=== PATIENT | male | born 1975 | race Caucasian/White ===

== ENCOUNTER → 2016-12-02 | Outpatient (CLI) | payer BC ==
[~2016-12-02] MED LIST: LISI-725 PO; METF-384 PO
[2016-12-02 11:59] LABS: BASO % 0.4 %; BASO ABS # 0.02 K/uL (0-0.2); COMPLETE YES; EOS % 2.9 %; HEMATOCRIT 34.8 % (42-52); IG% 0.4 %; LYMPH ABS # 1.65 K/uL (1.2-3.4); MEAN CELL VOLUME 88.1 fL (80-100); MEAN CORPUSCULAR HEMOGLOBIN 30.6 pg (25-34); MEAN CORPUSCULAR HGB CONC 34.8 g/dl (32-36); MEAN PLATELET VOLUME 9.7 fL (7.4-10.4); MONO % 7.4 %; NEUT % 51.9 %; PLATELET COUNT 254 K/uL (130-400); RED BLOOD COUNT 3.95 M/uL (4.7-6.1); WHITE BLOOD COUNT 4.46 K/uL (4.8-10.8)
[2016-12-02 12:19] LABS: AST/SGOT 27 U/L (15-37); BLOOD UREA NITROGEN 15 mg/dl (7-18); BUN/CREATININE RATIO 13.5 (10-20); CARBON DIOXIDE 28 mmol/L (21-32); CHLORIDE 106 mmol/L (98-107); CHOLESTEROL 222 mg/dl (0-200); GLUCOSE 181 mg/dl (70-99); POTASSIUM 4.3 mmol/L (3.5-5.1); SODIUM 141 mmol/L (136-145); TRIGLYCERIDES 135 mg/dl (0-150); VERY LOW DENSITY LIPOPROT CALC 27 mg/dl
[2016-12-02 12:21] LABS: ALT/SGPT 63 U/L (12-78); AST/SGOT 28 U/L (15-37); BLOOD UREA NITROGEN 15 mg/dl (7-18); BUN/CREATININE RATIO 15.2 (10-20); CALCIUM 9.3 mg/dl (8.5-10.1); CARBON DIOXIDE 28 mmol/L (21-32); CHLORIDE 106 mmol/L (98-107); GLUCOSE 187 mg/dl (70-99); MAGNESIUM 1.7 mg/dl (1.8-2.4); POTASSIUM 4.3 mmol/L (3.5-5.1); SODIUM 140 mmol/L (136-145)
[2016-12-02 12:25] LABS: RATIO 46.5 mcg/mg (0-30.0)
[2016-12-02 12:26] LABS: ALB/GLOB RATIO 1.3 (0.9-2); ALKALINE PHOSPHATASE 55 U/L (45-117); FERRITIN 226.5 ng/ml (8.0-388.0); TOTAL IRON BINDING CAPACITY 401 mcg/dl (250-450)
[2016-12-02 12:33] LABS: ALB/GLOB RATIO 1.2 (0.9-2); ALKALINE PHOSPHATASE 54 U/L (45-117); ALT/SGPT 64 U/L (12-78); CHOLESTEROL/HDL RATIO 4.9; HDL CHOLESTEROL 45 mg/dl; LDL CHOLESTEROL CALCULATED 150 mg/dl; THYROID STIMULATING HORMONE 0.989 uIu/ml (0.300-4.500)
[2016-12-03 06:06] LABS: ESTIMATED AVERAGE GLUCOSE 157 mg/dl; HA1C FLAG Normal (Normal)
== END | disposition home or self-care (01) ==
LOC: C.LAB 11:15
PROVIDERS: ATTEND Family Medicine
DX: Z00.00 Encounter for general adult medical examination without abnormal findings (principal); I10 Essential (primary) hypertension; E78.5 Hyperlipidemia, unspecified; E11.9 Type 2 diabetes mellitus without complications; E83.42 Hypomagnesemia; D64.9 Anemia, unspecified

== ENCOUNTER → 2017-07-02 | Outpatient (CLI) | payer BC ==
[2017-07-02 13:56] LABS: HEMATOCRIT 38.9 % (42-52); HEMOGLOBIN 13.2 g/dL (14.0-18.0); MEAN CELL VOLUME 86.1 fL (80-100); MEAN CORPUSCULAR HEMOGLOBIN 29.2 pg (25-34); MEAN CORPUSCULAR HGB CONC 33.9 g/dl (32-36); MEAN PLATELET VOLUME 10.7 fL (7.4-10.4); PLATELET COUNT 289 K/uL (130-400); RED CELL DISTRIBUTION WIDTH CV 13.5 % (11.5-14.5); RED CELL DISTRIBUTION WIDTH SD 42.6 fL (36.4-46.3); WHITE BLOOD COUNT 7.15 K/uL (4.8-10.8)
[2017-07-02 14:21] LABS: HEMOGLOBIN A1C 10.4 % (4.5-5.6)
[2017-07-02 14:56] LABS: ALBUMIN 4.6 gm/dl (3.4-5.0); ALKALINE PHOSPHATASE 97 U/L (45-117); ALT/SGPT 84 U/L (12-78); AST/SGOT 36 U/L (15-37); BLOOD UREA NITROGEN 19 mg/dl (7-18); CALCIUM 10.2 mg/dl (8.5-10.1); CARBON DIOXIDE 24 mmol/L (21-32); CHOLESTEROL 199 mg/dl (0-200); CREATININE 1.29 mg/dl (0.60-1.40); GLUCOSE 361 mg/dl (70-99); POTASSIUM 4.2 mmol/L (3.5-5.1); SODIUM 134 mmol/L (136-145); TOTAL PROTEIN 8.3 gm/dl (6.4-8.2)
== END | disposition home or self-care (01) ==
LOC: C.LABPBG 07:40
PROVIDERS: ATTEND Physician Assistant
DX: Z00.00 Encounter for general adult medical examination without abnormal findings (principal); D64.9 Anemia, unspecified; E11.65 Type 2 diabetes mellitus with hyperglycemia; E78.1 Pure hyperglyceridemia

== ENCOUNTER 2024-01-10 10:04 | Inpatient (IN) ==
[2024-01-10 10:51] LABS: Basophils # (auto) 0.04 K/uL (0.00-0.20); Basophils % (auto) 0.2 %; Hematocrit (blood only) 32.2 % (42.0-52.0); Hemoglobin 10.7 g/dl (14.0-18.0); Immature Granulocytes # (auto) 0.18 K/uL (0.01-0.20); Immature Granulocytes % (auto) 1.1 %; Lymphocytes # (auto) 2.28 K/uL (1.20-3.40); Lymphocytes % (auto) 13.6 %; Mean Corpuscular Hemoglobin 26.3 pg (25.0-34.0); Mean Corpuscular Hgb Conc 33.2 g/dL (32.0-36.0); Mean Corpuscular Volume 79.1 fL (80.0-100.0); Mean Platelet Volume 10.2 fL (9.4-12.4); Monocytes # (auto) 1.03 K/uL (0.11-0.59); Monocytes % (auto) 6.1 %; Neutrophils # (auto) 13.23 K/uL (1.40-6.50); Platelet Count 392 K/uL (130-400); RDW Coefficient of Variation 14.4 % (11.5-14.5); RDW Standard Deviation 40.6 fL (36.4-46.3); Red Blood Count 4.07 M/uL (4.70-6.10); White Blood Count 16.76 K/ul (4.8-10.8)
[2024-01-10] MEDS: ONDANSETRON INJ 2 MG/ML 2 ML VIAL IV STA (10:53)
[2024-01-10] MEDS: SODIUM CHLORIDE 0.9% 1,000 ML IV ONE ×2 (10:57→11:58)
[2024-01-10] MEDS: FAMOTIDINE 20MG IV PUSH 20 MG/5 ML SYR IV STA (10:58)
[2024-01-10] MEDS: PROMETHAZINE 12.5 MG/50.5 ML BAG IV STA (11:01)
[2024-01-10 11:15] LABS: Albumin Globulin Ratio 1.5 (0.9-2); Albumin Level 4.4 gm/dl (3.4-5.0); BUN Creatinine Ratio 4.6 (10-20); Bilirubin,Total 0.6 mg/dl (0.2-1.0); Calcium 5.5 mg/dl (8.6-10.3); Creatinine Clr Calc Pharmacy 8.3 ml/min; Globulin 2.9 gm/dl (2.5-4.0); Potassium 2.5 mmol/L (3.5-5.1); Total Protein 7.3 gm/dl (6.0-8.3)
[2024-01-10 11:21] LABS: Troponin I High Sensitivity 65.3 pg/ml (0-20)
--- NOTE | 2024-01-10 11:35 | XRay Report ---
SINGLE VIEW CHEST CLINICAL HISTORY: Vomiting. FINDINGS: An AP, portable, upright chest radiograph is compared to study dated 04/20/2014. The cardiome diastinal silhouette is unremarkable. The lungs and pleural spaces are clear. No pneumothorax is seen . The bony thorax is grossly intact. IMPRESSION: No active disease in the chest. ACT 112: Negative or not required by law. Electronically signed by: Aaron Gonzales M.D. 01/10/2024 11:34 AM
--- NOTE | 2024-01-10 11:37 | XRay Report ---
KUB CLINICAL HISTORY: Vomiting. FINDINGS: 2 AP, portable, supine abdominal radiographs are obtained. No prior studies are available f or comparison at the time of dictation. There are distended and gas-filled loops of small bowel which measure up to 3.3 cm in diameter. There is a paucity of gas in the colon. No evidence of intraperito emma free air is seen on this supine image. There are no abnormal abdominal calcifications. Small phl eboliths are noted in the pelvis. The bony structures appear intact. IMPRESSION: There are distended and gas-filled loops of small bowel. This is indeterminant and could be seen with a nonspecific enteritis. A developing bowel obstruction is not excluded. Correlate clini uday. Electronically signed by: Aaron Gonzales M.D. 01/10/2024 11:35 AM
[2024-01-10] MEDS: CALCIUM GLUCONATE 1,000 MG/60 ML BAG IV STA (11:53)
[2024-01-10] MEDS: MAGNESIUM SULFATE / D5W 1 GM/100 ML BAG IV SCH ×2 (11:58→15:50)
[2024-01-10] MEDS: POTASSIUM CHLORIDE / WTR 10 MEQ/100 ML PLCT IV SCH (11:58)
--- NOTE | 2024-01-10 11:58 | CT Scan Report ---
CT SCAN OF THE ABDOMEN AND PELVIS WITHOUT IV CONTRAST CLINICAL HISTORY: Acute renal insufficiency. Vomiting. COMPARISON STUDY: Abdominal x-ray dated 01/10/2024. TECHNIQUE: CT scan of the abdomen and pelvis is performed from the lung bases to the proximal femora. Images are reviewed in the axial, sagittal, and coronal planes. IV contrast was not administered for this examination due to poor renal function. Note that the examination is suboptimal without oral an d IV contrast. A dose lowering technique was utilized adhering to the principles of ALARA. CT DOSE: 671.79 mGy.cm FINDINGS: Lung bases: The heart is normal in size and without pericardial effusion. The lung bases are clear. T he distal esophagus is mildly distended and filled with fluid. Liver: The unenhanced liver is normal in size, contour, and attenuation. There is no intrahepatic justina iary ductal dilatation. Gallbladder: Unremarkable. Spleen: Normal in size and attenuation. Pancreas: Unremarkable. Adrenal glands: Unremarkable. Kidneys: The unenhanced kidneys are normal in size and without hydronephrosis. No renal calculi are i dentified and no ureteral stone is seen. There is no evidence of contour deforming renal mass lesion. There is nonspecific bilateral perinephric stranding. Abdominal vasculature: The abdominal aorta is normal in course and caliber. Bowel: The stomach is significantly distended and fluid-filled. The duodenum is normal in caliber, th ere is no evidence of high-grade bowel obstruction. The colon is relatively decompressed and appears diffusely thick walled. There is no significant surrounding inflammation. The appendix is not identi fied and reported surgically absent. Peritoneum: There is no intraperitoneal free air or abdominal ascites. There is a fat-containing umbi lical hernia. Lymphadenopathy: None. Pelvic viscera: The bladder, prostate, and seminal vesicles are normal as imaged. Skeletal structures: No lytic or blastic lesions are seen. IMPRESSION: 1. The stomach is significantly distended and fluid-filled, as is the distal esophagus. The duodenum is normal in caliber as are the small bowel loops. Correlate clinically for evidence of gastric outle t obstruction. 2. The colon is relatively decompressed and appears circumferentially thick walled. Some this may be related to underdistention. Correlate clinically for evidence of a mild nonspecific colitis. 3. There is nonspecific perinephric stranding. Correlate with clinical findings and urinalysis. 4. Additional findings as above. ACT 112: Negative or not required by law. Electronically signed by: Aaron Gonzales M.D. 01/10/2024 11:56 AM
[2024-01-10] MEDS: LORazepam 2 MG/1 ML VIAL IV STA (12:25)
--- NOTE | 2024-01-10 12:34 | History & Physical Report ---
Date of Service January 10, 2024 Assessment & Plan (1) RODRIGO (acute kidney injury): (2) DM2 (diabetes mellitus, type 2): (3) Gastric outlet obstruction: (4) Electrolyte and fluid disorder: (5) Elevated troponin: (6) Elevated lactic acid level: Plan This is a 48-year-old male presenting with nausea and vomiting likely due to gastric outlet obstruction, with severe dehydration and RODRIGO. 1) Gastric outlet obstruction and severely elevated lactic acid. No obvious sign of ischemic bowel on CT per report. - Currently monitoring lactic acid, and will decide whether patient requires ICU admission or PCU admission; if overall condition does not improve, will obtain target worker consult - We will keep patient n.p.o., and insert NG tube - Have discussed the case with surgery, and they will evaluate the patient; at this time only recommendations were keep patient n.p.o. and insert NG tube - Unfortunately due to patient's increased QTc, if patient does continue to have nausea and vomiting we will be limited in what we can use to treat 2) Severe RODRIGO likely due to volume depletion. Imaging does not appear to indicate any urinary tract obstruction. - Patient did receive repletion of electrolytes in the ER, as well as hydration. We will continue hydration with LR at 125 cc an hour - For now we will monitor every 2 hours BMP, and mag. Will also obtain Phos level with next scheduled lab - Will check urine sodium and creatinine to calculate FENa - Discussed case with nephrology; Dr. Feliciano will see the patient later after clinic - Will continue to dose medications renally and avoid all nephrotoxic medications 3) Elevated troponin, and somewhat abnormal EKG. Elevated troponin is likely due to renal failure, but we will continue to monitor. - Admit patient to telemetry - Monitor serial troponins - EKG with any occurrence of chest pain 4) Diabetes type 2. Patient will be n.p.o. for the near future. Will place on low-dose sliding scale insulin given elevated blood sugar still. - Sliding scale insulin as noted - Continue IV hydration -- 5) Hypertension, hyperlipidemia -- we will have to hold all of his medications for right now 6) History of opioid use/abuse -- for right now we will have to hold his buprenorphine; will have to monitor for signs of withdrawal 7) DVT prophylaxis -- SCDs only for now 8) CODE STATUS -- full code History of Present Illness Chief Complaint: Nausea and vomiting Primary Care Provider: Shavonne Vallecillo, This is a 48-year-old male with medical history significant for diabetes type 2 (on Ozempic 0.5 mg weekly, and metformin), hyperlipidemia, GERD, and opioid dependence (on buprenorphine) who comes in with several days of nausea and vomit ing. Patient states that he was in his usual state of health until about 4-5 days ago when he started developing the nausea and vomiting. He has not been able to keep much food or fluid down. He has been having some ice chips and sips of water at home for the last several days and that is about it. Denies any diarrhea. states urine output has decreased, but he that he is still producing urine. Denies any severe abdominal pain. Denies any dysuria as far as he can tell. Denies any fevers, chills. Denies any chest pain, shortness of breath. Patient states that he has been on Ozempic on and off for 4 to 5 years. In the past he has had occasional episodes of nausea and vomiting with it, but it has not been this severe. He resumed Ozempic 6 months ago at a dose of 0.5 mg q. weekly, and thus far until this week has not had any issues with it. Denies any other changes in medications. Allergies Allergy/AdvReac Type Severity Reaction Status Date / Time naloxone AdvReac Mild nauseaous Verified 07/26/23 07:36 and drowsy Home Medications Medication Instructions Recorded Confirmed Type blood sugar diagnostic (OneTouch #100 ea 12/17/19 07/26/23 Rx Ultra Blue Test Strip) blood-glucose meter (OneTouch #1 ea 12/17/19 07/26/23 Rx Ultra2 Meter) buprenorphine HCl 8 mg sublingual 8 mg sublingual UD 06/06/20 01/10/24 History tablet pantoprazole 40 mg tablet,delayed 40 mg PO QAM #90 tabs 08/26/23 01/10/24 Rx release rosuvastatin 40 mg tablet 40 mg PO QAM #90 tabs 08/26/23 01/10/24 Rx metformin 500 mg tablet,extended 1,000 mg (2 x 500 mg) PO BID #360 10/16/23 01/10/24 Rx release 24 hr tabs semaglutide 0.25 mg or 0.5 mg (2 0.5 mg (0.736 mL) subcut .weekly 01/02/24 01/10/24 Rx mg/3 mL) subcutaneous pen injector #3 mL (Ozempic) Past Med/Surg History Problem List (Updated 01/10/24 @ 13:10 by Karla Bruno PA-C) Nausea & vomiting Elevated lactic acid level Elevated troponin Electrolyte and fluid disorder Gastric outlet obstruction DM2 (diabetes mellitus, type 2) RODRIGO (acute kidney injury) History of colon polyps Erectile dysfunction Hypomagnesemia Opiate dependence hx Depression Anxiety Peripheral neuropathy Microalbuminuria Hypertriglyceridemia Gastroesophageal reflux disease Dyslipidemia Dysesthesia Diabetic nephropathy Diabetes mellitus type 2, uncontrolled NIDDM Anemia followed with [facility], advised to take magnesium po BID. HTN (hypertension) Medical History Restless leg syndrome Migraine occasional History of alcohol abuse Surgical History History of colonoscopy History of esophagogastroduodenoscopy (EGD) H/O wisdom tooth extraction S/P hardware removal right hand History of open reduction and internal fixation (ORIF) procedure right hand Hx of appendectomy Family History Father Brain tumor Mental disorder Grandfather (Paternal) Coronary heart disease Type 2 diabetes mellitus Mother Mental disorder Grandfather (Maternal) Type 2 diabetes mellitus Denies family history of Ovarian cancer Prostate cancer Myocardial infarction Breast cancer Colorectal cancer Social History Smoking Status: Former smoker Tobacco Type: Smokeless Tobacco (Dip or Chew) Second Hand Exposure: Yes (as a child); Do You Dip or Chew Tobacco: Yes; Hx Alcohol Use: No ((hx heavy alcohol use) quit in 2014) Hx Substance Use: No (hx of misuse of RX (per pcp notes)) Preferred Language: Khmer Communication Ability: Effective Visual Impairment: No Limitations Hearing Ability: Normal Slasher Machine Operator Required: No Beliefs That Will Affect Care: None marital status: Current Living Situation: Family current occupational status: employed 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 caffeine: Yes (Soda 1 can per day. ) during the past year weight has: remained stable Dental Care, Regularly: No Physical Activity Frequency: 5-6 Times per Week Seatbelt Use: always Sunscreen Use: Yes Assistive Devices: None Review of Systems Review of Systems: All systems reviewed & are unremarkable except as noted in HPI & below Constitutional: + anorexia; no fever and no chills Gastrointestinal: + nausea and + vomiting; no abdominal pa in, no hematemesis, no change in stools and no diarrhea/loose stools Genitourinary: + decreased urination; no dysuria or no difficulty urinating Physical Exam Constitutional: + ill appearing; + not appropriately hyd rated Eyes: PERRL, conjunctivae normal, anicteric sclerae Respiratory: normal respiratory effort, lungs clear to auscultation Cardiovascular: RRR, no murmur, no edema Gastrointestinal (Abdomen): Inspection/Auscultation: + abdomen distended; + abnormal bowel sounds and no high-pitched sounds Percussion/Palpation: abdomen soft; abdomen nontender and no guarding Musculoskeletal: no cyanosis or clubbing, extremities motor strength 5/5 Neurologic: PERRL, EOMI, accommodation nl, no face palsy, no dysarthria Psychiatric: A+Ox3, euthymic affect Genitourinary: no testicular masses, no penis abnormality In process of having Jenkins cath placed Results & Data Results & Data Vital Signs (Past 12 Hours) Vital Signs Temp Pulse Pulse Resp BP BP Pulse Ox 01/10/24 12:10 93 H 01/10/24 12:07 91 H 14 118/64 100 01/10/24 12:07 100 01/10/24 10:10 36.0 C L 89 20 111/70 99 O2 Del Method 01/10/24 12:10 01/10/24 12:07 Room Air 01/10/24 12:07 Room Air 01/10/24 10:[address] abd/pelvis without contrast IMPRESSION: 1. The stomach is significantly distended and fluid-filled, as is the distal esophagus. The duodenum is normal in caliber as are the small bowel loops. Correlate clinically for evidence of gastric outlet obstruction. 2. The colon is relatively decompressed and appears circumferentially thick walled. Some this may be related to underdistention. Correlate clinically for evidence of a mild nonspecific colitis. 3. There is nonspecific perinephric stranding. Correlate with clinical findings and urinalysis. 4. Additional findings as above. ECG Additional Comments: Normal sinus rhythm Left axis deviation Nonspecific T wave abnormality QTc prolonged at 547 Code Status & VTE Plan Code Status Full code per patient. PG Care Time/CCT Total # of Minutes Spent Total Time Spent with Patient: Total time spent is greater than 50% in coordination of care (as documented) at patient's floor/unit and/or counseling patient: Coding Level of Care Code 93454 INT INP/OBS CARE 3/75MIN Diagnoses RODRIGO (acute kidney injury) N17.9 DM2 (diabetes mellitus, type 2) E11.9 Gastric outlet obstruction K31.1 Electrolyte and fluid disorder E87.8 Elevated troponin R79.89 Elevated lactic acid level R79.89 Time Spent (min) 75
[2024-01-10 12:38] LABS: BUN Creatinine Ratio 4.9 (10-20); Calcium 5.4 mg/dl (8.6-10.3); Creatinine Clr Calc Pharmacy 8.6 ml/min; Potassium 2.7 mmol/L (3.5-5.1); Troponin I High Sensitivity 61.8 pg/ml (0-20)
[2024-01-10] MEDS: LIDOCAINE 2% JELLY 5 ML TUBE EXT ONE (13:03)
--- NOTE | 2024-01-10 13:06 | Surgery Consultation ---
Date of Consultation January 10, 2024 Assessment & Plan (1) Nausea & vomiting: This is a 48yM with a PMH of DM2, anxiety/depression, HLD, HTN, anemia, h/o opioid and alcohol abuse, who presents to the [facility] ED on 01/10/24 with complaints of nausea/vomiting over the last 5 days. He also reported feeling achy and numb and was worried about his sugars so he came in for evaluation. He has not been able to keep much down orally since this started. In the ER a CT a/p was obtained that revealed the stomach is significantly distended and fluid- filled, as is the distal esophagus. The duodenum is normal in caliber as are the small bowel loops. Correlate clinically for evidence of gastric outlet obstruction. The colon is relatively decompressed and appears circumferentially thick walled. Correlate clinically for evidence of a mild nonspecific colitis. The patient denies any abdominal pain, no blood in emesis. He states he normally runs constipated and goes about 1x/week. He has been passing flatus. He has been worked up for anemia in the past with both EGD/colonoscopy, last EGD 2018 showed some gastritis (biopsied) and last c-scope 2020 (poor prep, but no significant pathology seen). He has also been evaluated by heme/onc who believes his anemia likely chronic disease vs renal insufficiency in nature. His great gpa had crohn's but no other close family history of IBD. He tells me no close family history of GI/pancreatic malignancy. No reports of peptic ulcer disease or chronic NSAID use. Patient reports being sober from etoh over 13 years, but did recently have some last wknd. Patient reports taking all of his home medications as prescribed, He has started Ozempic about 6 months ago and notes some weight loss associated with the start of this. Past surgical history includes an appendectomy. Today's blood work is significant for a WBC 16, Hbg 10.7, Lactate 11.9, K 2.7, Cr 2.5, glucose 260, calcium 5.4. The patient's vital signs are stable. On exam patient is resting and in no distress, communicating clearly with me. His abdomen is soft, non tender and non distended. Given last several days patient dealing with ongoing nausea and multiple bouts of emesis, given CT scan findings of a severely distended stomach we would recommend inserting an NGT to LIWS for gastric decompression. Keep patient NPO with IVF. His severe electrolyte derangements will need to be corrected. Recommend IV PPI. If ongoing concerns we can also consider a GI consult for evaluation of if an inpt EGD indicated. For now no plans for acute surgical intervention. Will follow closely. History of Present Illness History of Present Illness This is a 48yM with a PMH of DM2, anxiety/depression, HLD, HTN, anemia, h/o opioid and alcohol abuse, who presents to the [facility] ED on 01/10/24 with complaints of nausea/vomiting over the last 5 days. He also reported feeling achy and numb and was worried about his sugars so he came in for evaluation. He has not been able to keep much down orally since this started. He states he felt like he was turning a corner yesterday into today, this AM after drinking some fluids/Gatorade about 30 minutes later he started throwing up again. The patient denies anything like this happening to him before. He denies eating any poorly prepped food to his knowledge or sick contacts. Because of his symptoms he presented to the ER for further evaluation. A CT a/p was obtained that revealed the stomach is significantly distended and fluid-filled, as is the distal esophagus. The duodenum is normal in caliber as are the small bowel loops. Correlate clinically for evidence of gastric outlet obstruction. The colon is relatively decompressed and appears circumferentially thick walled. Correlate clinically for evidence of a mild nonspecific colitis. The patient denies any abdominal pain, no blood in emesis. He states he normally runs constipated and goes about 1x/week. His last true BM was saturday, but he was able to pass some stool yesterday. He reports + burping in addition to also passing flatus. No issues eating food in the past. He has been worked up for anemia in the past with both EGD/colonoscopy, last EGD 2018 showed some gastritis (biopsied) and last c-scope 2020 (poor prep, but no significant pathology seen). He has also been evaluated by heme/onc who believes his anemia likely chronic disease vs renal insufficiency in nature. His great gpa had crohn's but no other close family history of IBD. He tells me no close family history of GI/pancreatic malignancy. No reports of peptic ulcer disease or chronic NSAID use. Patient reports being sober from etoh over 13 years, but did recently have some last wknd. Patient reports taking all of his home medications as prescribed, He has started Ozempic about 6 months ago and notes some weight loss associated with the start of this. Past surgical history includes an appendectomy Allergies Allergy/AdvReac Type Severity Reaction Status Date / Time naloxone AdvReac Mild nauseaous Verified 07/26/23 07:36 and drowsy Home Medications Medication Instructions Recorded Confirmed Type blood sugar diagnostic (OneTouch #100 ea 12/17/19 07/26/23 Rx Ultra Blue Test Strip) blood-glucose meter (OneTouch #1 ea 12/17/19 07/26/23 Rx Ultra2 Meter) buprenorphine HCl 8 mg sublingual 8 mg sublingual UD 06/06/20 01/10/24 History tablet pantoprazole 40 mg tablet,delayed 40 mg PO QAM #90 tabs 08/26/23 01/10/24 Rx release rosuvastatin 40 mg tablet 40 mg PO QAM #90 tabs 08/26/23 01/10/24 Rx metformin 500 mg tablet,extended 1,000 mg (2 x 500 mg) PO BID #360 10/16/23 01/10/24 Rx release 24 hr tabs semaglutide 0.25 mg or 0.5 mg (2 0.5 mg (0.736 mL) subcut .weekly 01/02/24 01/10/24 Rx mg/3 mL) subcutaneous pen injector #3 mL (Ozempic) Patient History Medical History Restless leg syndrome Migraine occasional History of alcohol abuse Surgical History History of colonoscopy History of esophagogastroduodenoscopy (EGD) H/O wisdom tooth extraction S/P hardware removal right hand History of open reduction and internal fixation (ORIF) procedure right hand Hx of appendectomy Family History Father Brain tumor Mental disorder Grandfather (Paternal) Coronary heart disease Type 2 diabetes mellitus Mother Mental disorder Grandfather (Maternal) Type 2 diabetes mellitus Denies family history of Ovarian cancer Prostate cancer Myocardial infarction Breast cancer Colorectal cancer Social History Smoking Status: Former smoker Tobacco Type: Cigarettes and Smokeless Tobacco (Dip or Chew) Second Hand Exposure: Yes; Do You Dip or Chew Tobacco: Yes; Tobacco Cessation Education Requested by Patient: No Hx Alcohol Use: No Hx Substance Use: No Preferred Language: [place] Communication Ability: Effective Visual Impairment: No Limitations Hearing Ability: Normal [employer] Supervisor Required: No Beliefs That Will Affect Care: None marital status: Current Living Situation: Spouse current occupational status: employed 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 caffeine: Yes (Soda 1 can per day. ) during the past year weight has: remained stable Dental Care, Regularly: No Physical Activity Frequency: 5-6 Times per Week Seatbelt Use: always Sunscreen Use: Yes Assistive Devices: None Review of Systems Constitutional: + chills and + body aches; no fever Respiratory: + dyspnea (some SOB noted after vomiting ); no cough Cardiovascular: no chest pain Gastrointestinal: + belching, + nausea, + vomiting and + c onstipation (jono ent's baseline is 1x/week); no abdominal pain, no bloating, no hematemesis and no blood in stools Physical Exam Physical Exam: awake, appears in no distress Respiratory: normal respiratory effort Gastrointestinal (Abdomen): Inspection/Auscultation: abdomen not distended Percussion/Palpation: abdomen soft; abdomen nontender Results & Data Vital Signs (Past 12 Hours) Vital Signs Temp Pulse Pulse Resp BP BP Pulse Ox 01/10/24 12:10 93 H 01/10/24 12:07 91 H 14 118/64 100 01/10/24 12:07 100 01/10/24 10:10 96.8 F L 89 20 111/70 99 O2 Del Method 01/10/24 12:10 01/10/24 12:07 Room Air 01/10/24 12:07 Room Air 01/10/24 10:[address] SCAN OF THE ABDOMEN AND PELVIS WITHOUT IV CONTRAST CLINICAL HISTORY: Acute renal insufficiency. Vomiting. COMPARISON STUDY: Abdominal x-ray dated 01/10/2024. TECHNIQUE: CT scan of the abdomen and pelvis is performed from the lung bases to the proximal femora. Images are reviewed in the axial, sagittal, and coronal planes. IV contrast was not administered for this examination due to poor renal function. Note that the examination is suboptimal without oral and IV contrast. A dose lowering technique was utilized adhering to the principles of ALARA. CT DOSE: 671.79 mGy.cm FINDINGS: Lung bases: The heart is normal in size and without pericardial effusion. The lung bases are clear. The distal esophagus is mildly distended and filled with fluid. Liver: The unenhanced liver is normal in size, contour, and attenuation. There is no intrahepatic biliary ductal dilatation. Gallbladder: Unremarkable. Spleen: Normal in size and attenuation. Pancreas: Unremarkable. Adrenal glands: Unremarkable. Kidneys: The unenhanced kidneys are normal in size and without hydronephrosis. No renal calculi are identified and no ureteral stone is seen. There is no evidence of contour deforming renal mass lesion. There is nonspecific bilateral perinephric stranding. Abdominal vasculature: The abdominal aorta is normal in course and caliber. Bowel: The stomach is significantly distended and fluid-filled. The duodenum is normal in caliber, there is no evidence of high-grade bowel obstruction. The colon is relatively decompressed and appears diffusely thick walled. There is no significant surrounding inflammation. The appendix is not identified and reported surgically absent. Peritoneum: There is no intraperitoneal free air or abdominal ascites. There is a fat-containing umbilical hernia. Lymphadenopathy: None. Pelvic viscera: The bladder, prostate, and seminal vesicles are normal as imaged. Skeletal structures: No lytic or blastic lesions are seen. IMPRESSION: 1. The stomach is significantly distended and fluid-filled, as is the distal esophagus. The duodenum is normal in caliber as are the small bowel loops. Ange elate clinically for evidence of gastric outlet obstruction. 2. The colon is relatively decompressed and appears circumferentially thick walled. Some this may be related to underdistention. Correlate clinically for evidence of a mild nonspecific colitis. 3. There is nonspecific perinephric stranding. Correlate with clinical findings and urinalysis. 4. Additional findings as above. ACT 112: Negative or not required by law. Electronically signed by: Aaron Gonzales M.D. 01/10/2024 11:56 AM PG Care Time/CCT Total # of Minutes Spent Total Time Spent with Patient: Total time spent is greater than 50% in coordination of care (as documented) at patient's floor/unit and/or counseling patient: Coding Level of Care Code 54366 OFFICE CONSULT LVL Diagnoses Nausea & vomiting R11.2
[2024-01-10] MEDS ORDERED: CARBOHYDRATES FOR HYPOGLYCEMIA PO PRN (13:30)
[2024-01-10] MEDS ORDERED: GLUCAGON FOR INJ 1 MG VIAL SQ PRN (13:30)
[2024-01-10] MEDS ORDERED: GLUCOSE 10 TAB/TUBE PO PRN (13:30)
[2024-01-10] MEDS ORDERED: DEXTROSE 50% 50 ML SYRINGE IV PRN (13:30)
[2024-01-10] MEDS ORDERED: PHARMACY GLYCEMIC MGMT CONSULT PRN (13:30)
[2024-01-10] MEDS ORDERED: GLUCOSE 40% GEL 15 GM TUBE PO PRN (13:30)
--- NOTE | 2024-01-10 13:34 | XRay Report ---
XR KUB/Abdomen 1 view CLINICAL HISTORY: NG placement TECHNIQUE: 1 view of the abdomen was obtained. Comparison: None available at the time of this dictation. FINDINGS: Enteric tube side-port is above the diaphragm. The osseous structures are grossly unremarkable. Small stool burden is seen. IMPRESSION: Enteric tube side-port is above the diaphragm. It can be advanced approximately 7 cm for improved pos itioning. ACT 112: Negative or not required by law. Electronically signed by: Rush Mccormick M.D. 01/10/2024 1:33 PM
--- NOTE | 2024-01-10 13:38 | Billing Data ---
Date of Service January 10, 2024 Coding Level of Care Code 99666 CRITICAL CARE 1ST 30-74M Time Spent (min) 30 Comment 30 minutes critical care in addition to all other billable time.
[2024-01-10 13:40] LABS: Appearance Urine Clear (Clear); Bacteria Urine Automated None Seen (None Seen); Bilirubin Urine Negative (Negative); Blood Urine 3+ (Negative); Color Urine Yellow; Epithelial Cell Urine Auto 0-2 /hpf (0-2); Glucose Urine UA Negative (Negative); Ketones Urine 2+ (Negative); Leukocyte Esterase Urine Negative (Negative); Nitrite Urine Negative (Negative); Protein Urine 2+ (Negative); Specific Gravity Urine 1.012 (1.000-1.030); Urobilinogen Urine Negative (Negative); WBC Urine Automated 0-5 /hpf (0-5); pH Urine 5.5 (4.5-7.5)
--- NOTE | 2024-01-10 13:47 | XRay Report ---
SINGLE VIEW CHEST CLINICAL HISTORY: Enteric tube placement. FINDINGS: An AP, portable, upright chest radiograph is compared to study performed earlier the same d ay 01/10/2024. An enteric tube has been placed. The tip projects just below the diaphragm, with the s ideholes located above the diaphragm. The cardiomediastinal silhouette is unremarkable. The lungs and pleural spaces are clear. No pneumothorax is seen. The bony thorax is grossly intact. IMPRESSION: 1. An enteric tube has been placed as above. This should be advanced. 2. The lungs are clear. ACT 112: Negative or not required by law. Electronically signed by: Aaron Gonzales M.D. 01/10/2024 1:46 PM
[2024-01-10 14:17] LABS: Creatinine Urine Random 55.2 mg/dl
[2024-01-10 14:46] LABS: Base Excess VBG -16.2 mEq/L; HCO3 VBG 10 mmol/L; Oxygen Saturation VBG < 60.0 %; PCO2 VBG 26 mmHg (38-50); PO2 VBG 41 mmHg
[2024-01-10 14:49] LABS: Basophils # (auto) 0.03 K/uL (0.00-0.20); Basophils % (auto) 0.2 %; Hematocrit (blood only) 28.3 % (42.0-52.0); Hemoglobin 9.4 g/dl (14.0-18.0); Immature Granulocytes # (auto) 0.16 K/uL (0.01-0.20); Lymphocytes # (auto) 1.77 K/uL (1.20-3.40); Lymphocytes % (auto) 10.8 %; Mean Corpuscular Hemoglobin 26.2 pg (25.0-34.0); Mean Corpuscular Hgb Conc 33.2 g/dL (32.0-36.0); Mean Corpuscular Volume 78.8 fL (80.0-100.0); Mean Platelet Volume 10.3 fL (9.4-12.4); Monocytes # (auto) 1.12 K/uL (0.11-0.59); Monocytes % (auto) 6.8 %; Neutrophils # (auto) 13.38 K/uL (1.40-6.50); Neutrophils % (auto) 81.2 %; Platelet Count 333 K/uL (130-400); RDW Coefficient of Variation 14.5 % (11.5-14.5); RDW Standard Deviation 40.6 fL (36.4-46.3); Red Blood Count 3.59 M/uL (4.70-6.10); White Blood Count 16.46 K/ul (4.8-10.8)
--- NOTE | 2024-01-10 14:55 | Pharmacy Report ---
Pharmacy Glycemic Short Note 2 - Date of Service January 10, 2024 - Glycemic Short BSG Results (Last 24 hours): 01/10/24 01/10/24 01/10/24 10:19 10:35 11:54 Glucose 308 H* 260 H POC Glucose 297 H 01/10/24 14:18 Glucose POC Glucose 300 H OUTPATIENT ANTIDIABETIC REGIMEN: * semaglutide 0.5 mg SQ weekly, metformin 1gm bid ASSESSMENT: * 48 year old admitted with RODRIGO, dehydration, electrolyte abnormalities. PMHx significant for T2DM - pharmacy consulted for glycemic management. Patient with several days of nausea/vomiting prior to admission. BSG 300 mg/dL at time of consult - will enter in novolog for now and see how BSGs trend. Will plan to be more conservative with insulin as severe RODRIGO noted. Could consider basal insulin if BSGs trending upward. Patient NPO currently. PLAN FOR INPATIENT GLYCEMIC CONTROL: * Hold outpatient oral diabetes medications * Basal insulin * Lantus - hold * Bolus insulin * NovoLog per scale ACHS or Q6hrs while NPO * Goal Range: Low 110 mg/dL - High 140 mg/dL * Correction Factor: 50 mg/dL/unit * Nutritional / Prandial insulin per carb ratio of 1 unit per -- grams CHO consumed
--- NOTE | 2024-01-10 15:09 | Emergency Department Note ---
Impression & Plan Acute renal failure (ARF), Gastric outlet obstruction, Vomiting, Acute hypokalemia, Hypocalcemia ED Provider Note CHIEF COMPLAINT: Vomiting, diabetic HISTORY OF PRESENT ILLNESS: This 48-year-old male patient past medical history of diabetes, hypomagnesemia, opioid dependency, peripheral neuropathy, microalbuminuria, GERD, dyslipidemia, anemia, hypertension presents to the emergency department with complaints of vomiting and diarrhea. His states this has happened in the past and has essentially been waxing and waning over the last 2 months. He is unable to keep anything in his stomach at this point. Patient is mentions that he has been on semaglutide for the last 6 months or so, no recent dosing adjustments. 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 He does take Suboxone but has not missed any doses. He denies any blood in the emesis or in the stools. He complains of tingling to the hands and feet. REVIEW OF SYSTEMS: A review of systems was performed with positives and pertinent negatives listed in the history of present illness. 10 systems were reviewed and are otherwise negative. ALLERGIES: see below MEDICATIONS: see below PMH: see below SOCIAL HISTORY: see below DDx: Gastroparesis, electrolyte abnormality, dehydration, infectious etiology such as foodborne process, UTI, renal obstruction, bowel obstruction among others. PHYSICAL EXAM: Vital signs reviewed. General: Chronically ill-appearing 48 old male, in some discomfort. No active vomiting. HEENT: No scleral icterus, PERRLA, neck supple. Dry mucous membranes, poor dentition. Cardiovascular: Regular rate and rhythm, no extra sounds. Pulmonary: Clear to auscultation bilaterally, normal work of breathing. Abdomen: Soft, mild diffuse abdominal tenderness, no rebound, no guarding, nontender, nondistended, positive bowel sounds. Musculoskeletal: Atraumatic, no peripheral edema. Neurologic: Patient awake alert and oriented x 3, speech is clear Skin: Warm, dry, no rash EMERGENCY DEPARTMENT COURSE/MDM: This patient was evaluated and appeared to be in no significant distress. IV access was obtained and laboratory work was drawn. The patient was placed on the trucking supervisor and noted to be in a sinus rhythm. IV hydration was initiated. After discussion with clinical pharmacist, Zofran was held due to prolonged QT and patient was medicated with IV Phenergan 12.5 mg. Patient's laboratory work reveals hypokalemia at 2.5, hypomagnesemia 1.0, acute renal failure with a creatinine of 11.34, calcium of 5.0. X-rays indicate dilated loops of small bowel. CT imaging of the abdomen pelvis without contrast was ordered. IV potassium, IV magnesium and IV calcium gluconate were ordered for electrolyte repletion. Patient's high-sensitivity troponin is slightly elevated at 65.3, likely secondary to the renal failure. EKG reveals nonspecific ST change with a prolonged QT interval, likely related to the electrolyte derangements. Patient refused Jenkins catheter. CT imaging reveals a possible gastric outlet obstruction with a dilated stomach that is fluid-filled. NG tube was ordered. I did inform the patient of the findings and plans for admission. He is apprehensive but agreed. I did speak with the hospitalist service who has agreed to evaluate the patient for admission and further management. MONITORING: An order for cardiac monitoring was placed and the patient is noted to be in a normal sinus rhythm at 90 beats per minute. RADIOLOGY: Chest x-ray to my interpretation reveals no active disease in the chest. Otherwise defer to radiology's over read. KUB to my interpretation reveals no free air, dilated small bowel loops, otherwise defer to radiology's over read. CT abdomen pelvis: IMPRESSION: 1. The stomach is significantly distended and fluid-filled, as is the distal esophagus. The duodenum is normal in caliber as are the small bowel loops. Correlate clinically for evidence of gastric outlet obstruction. 2. The colon is relatively decompressed and appears circumferentially thick walled. Some this may be related to underdistention. Correlate clinically for evidence of a mild nonspecific colitis. 3. There is nonspecific perinephric stranding. Correlate with clinical findings and urinalysis. 4. Additional findings as above. EKG: To my interpretation reveals a normal sinus rhythm 85 bpm. Left axis deviation, nonspecific ST abnormality. Prolonged QT interval at 547. DISPOSITION: admission I have personally spent greater than 60 minutes of critical care time in the direct management of this patient. This includes bedside care, interpretation of diagnostic studies, and testing, discussion with consultants, patient, and family members, and other required patient management activities. This 60 minutes is in excess of all separately billable procedures. Past Med/Surg History Problem List (Updated 01/12/24 @ 11:05 by Amy Sandoval MD) Hypocalcemia (Acute) Acute hypokalemia (Acute) Vomiting (Acute) Gastric outlet obstruction (Acute) Acute renal failure (ARF) (Acute) Renal failure, acute Hypokalemia due to excessive gastrointestinal loss of potassium Hypokalemia Lactic acidosis Gastric outlet obstruction Nausea & vomiting Elevated lactic acid level Elevated troponin Electrolyte and fluid disorder Gastric outlet obstruction DM2 (diabetes mellitus, type 2) RODRIGO (acute kidney injury) History of colon polyps Erectile dysfunction Hypomagnesemia Opiate dependence hx Depression Anxiety Peripheral neuropathy Microalbuminuria Hypertriglyceridemia Gastroesophageal reflux disease Dyslipidemia Dysesthesia Diabetic nephropathy Diabetes mellitus type 2, uncontrolled NIDDM Anemia followed with [facility], advised to take magnesium po BID. HTN (hypertension) Medical History Restless leg syndrome Migraine occasional History of alcohol abuse Surgical History History of colonoscopy History of esophagogastroduodenoscopy (EGD) H/O wisdom tooth extraction S/P hardware removal right hand History of open reduction and internal fixation (ORIF) procedure right hand Hx of appendectomy Family History Father Brain tumor Mental disorder Grandfather (Paternal) Coronary heart disease Type 2 diabetes mellitus Mother Mental disorder Grandfather (Maternal) Type 2 diabetes mellitus Denies family history of Ovarian cancer Prostate cancer Myocardial infarction Breast cancer Colorectal cancer Social History Smoking Status: Former smoker Tobacco Type: Cigarettes and Smokeless Tobacco (Dip or Chew) Second Hand Exposure: Yes; Do You Dip or Chew Tobacco: Yes; Tobacco Cessation Education Requested by Patient: No Hx Alcohol Use: No Hx Substance Use: No Preferred Language: Honduran Communication Ability: Effective Visual Impairment: No Limitations Hearing Ability: Normal Office Clin Asst Required: No Beliefs That Will Affect Care: None marital status: Current Living Situation: Spouse current occupational status: employed 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 caffeine: Yes (Soda 1 can per day. ) during the past year weight has: remained stable Dental Care, Regularly: No Physical Activity Frequency: 5-6 Times per Week Seatbelt Use: always Sunscreen Use: Yes Assistive Devices: None Allergies Allergies Allergy/AdvReac Type Severity Reaction Status Date / Time naloxone AdvReac Mild nauseaous Verified 07/26/23 07:36 and drowsy Home Meds Home Medications Medication Instructions Recorded Confirmed buprenorphine HCl 8 mg sublingual 8 mg sublingual UD 06/06/20 01/10/24 tablet Previous Rx's Medication Instructions Recorded blood sugar diagnostic (OneTouch #100 ea 12/17/19 Ultra Blue Test Strip) blood-glucose meter (OneTouch #1 ea 12/17/19 Ultra2 Meter) pantoprazole 40 mg tablet,delayed 40 mg PO QAM #90 tabs 08/26/23 release rosuvastatin 40 mg tablet 40 mg PO QAM #90 tabs 08/26/23 metformin 500 mg tablet,extended 1,000 mg (2 x 500 mg) PO BID #360 10/16/23 release 24 hr tabs semaglutide 0.25 mg or 0.5 mg (2 0.5 mg (0.736 mL) subcut .weekly 01/02/24 mg/3 mL) subcutaneous pen injector #3 mL (Ozempic) Results & Data (ED) Vital Signs Vital Signs - 24 hr 01/10/24 10:10 01/10/24 12:07 01/10/24 12:07 Temperature 36.0 C L Temperature Source Skin Pulse Rate 89 Pulse Rate [Apical] 91 H Pulse Rhythm Regular Pulse Strength Normal Respiratory Rate 20 14 Respiratory Effort / Characteristics Non-Labored Spontaneous Respiratory Depth Normal Respiratory Pattern Regular Blood Pressure 111/70 Blood Pressure [Left Arm] 118/64 Blood Pressure Mean 83 Blood Pressure Mean [Left Arm] 82 Pulse Oximetry 99 100 100 Oxygen Delivery Method Room Air Room Air Sepsis Recent Fever Within 48 Hours No Sepsis New/Unexplained Change in Mental Status N/A Sepsis Action Taken by Nursing No Action Required 01/10/24 12:10 Temperature Temperature Source Pulse Rate 93 H Pulse Rate [Apical] Pulse Rhythm Pulse Strength Respiratory Rate Respiratory Effort / Characteristics Respiratory Depth Respiratory Pattern Blood Pressure Blood Pressure [Left Arm] Blood Pressure Mean Blood Pressure Mean [Left Arm] Pulse Oximetry Oxygen Delivery Method Sepsis Recent Fever Within 48 Hours Sepsis New/Unexplained Change in Mental Status Sepsis Action Taken by Longterm Medications Current Medication List: was personally reviewed by me Laboratory Data Attestation: I reviewed the patient's lab results. 01/12/24 09:00 01/12/24 09:00 Lab Results 01/10/24 01/10/24 01/10/24 Range/Units 10:19 10:35 11:54 WBC 16.76 H (4.8-10.8) K/ul RBC 4.07 L (4.70-6.10) M/uL Hgb 10.7 L (14.0-18.0) g/dl POC Hgb (14.0-18.0) g/dl Hct 32.2 L (42.0-52.0) % POC Hct (42-52) % MCV 79.1 L (80.0-100.0) fL MCH 26.3 (25.0-34.0) pg MCHC 33.2 (32.0-36.0) g/dL RDW Std Deviation 40.6 (36.4-46.3) fL RDW Coeff of Parveen 14.4 (11.5-14.5) % Plt Count 392 (130-400) K/uL MPV 10.2 (9.4-12.4) fL Immature Gran % (Auto) 1.1 % Neut % (Auto) 79.0 % Lymph % (Auto) 13.6 % [place] % (Auto) 6.1 % Eos % (Auto) 0.0 % Baso % (Auto) 0.2 % Neut # (Auto) 13.23 H (1.40-6.50) K/uL Lymph # (Auto) 2.28 (1.20-3.40) K/uL [place] # (Auto) 1.03 H (0.11-0.59) K/uL Eos # (Auto) 0.00 (0.00-0.50) K/uL Baso # (Auto) 0.04 (0.00-0.20) K/uL Immature Gran # (Auto) 0.18 (0.01-0.20) K/uL Specimen Type POC pH (7.35-7.45) POC pCO2 (35-46) mmHg POC pO2 (80-95) mmHg POC HCO3 (19-24) michelle/L POC Total CO2 (24-31) mmol/L POC Base Excess (-9-1.8) michelle/L POC ABG O2 Sat (90-95) % VBG pH (7.36-7.41) VBG pCO2 (38-50) mmHg VBG pO2 mmHg VBG HCO3 mmol/L VBG O2 Saturation % VBG Base Excess mEq/L POC Sodium (135-144) mmol/L Sodium 141 143 (136-145) mmol/L POC Potassium (3.3-5.0) mmol/L Potassium 2.5 L* 2.7 L (3.5-5.1) mmol/L Chloride 79 L 82 L (98-107) mmol/L Carbon Dioxide 9 L* 9 L* (21-32) mmol/L Anion Gap 53 H 52 H (3-11) BUN 52 H 53 H (6-23) mg/dl Creatinine 11.34 H* 10.92 H* D (0.6-1.4) mg/dl Est Cr Clr Drug Dosing 8.3 8.6 ml/min eGFR 5.10 5.34 BUN/Creatinine Ratio 4.6 L 4.9 L (10-20) Glucose 308 H* 260 H (70-99(Fasting)) mg/dl POC Glucose 297 H (70-99) mg/dl Osmolality (280-300) mOsm/kg Lactate 11.9 H* (0.4-2.0) mmol/L Calcium 5.5 L* 5.4 L* (8.6-10.3) mg/dl Phosphorus (2.5-4.9) mg/dl Magnesium 1.0 L (1.7-2.4) mg/dl Total Bilirubin 0.6 (0.2-1.0) mg/dl AST 30 (13-39) U/L ALT 20 (7-52) U/L Alkaline Phosphatase 65 (34-104) U/L Troponin I High Sens 65.3 H* 61.8 H* (0-20) pg/ml Total Protein 7.3 (6.0-8.3) gm/dl Albumin 4.4 (3.4-5.0) gm/dl Globulin 2.9 (2.5-4.0) gm/dl Albumin/Globulin Ratio 1.5 (0.9-2) Urine Color Urine Appearance (Clear) Urine pH (4.5-7.5) Ur Specific [place] (1.000-1.030) Urine Protein (Negative) Urine Glucose (UA) (Negative) Urine Ketones (Negative) Urine Blood (Negative) Urine Nitrite (Negative) Urine Bilirubin (Negative) Urine Urobilinogen (Negative) Ur Leukocyte Esterase (Negative) Urine WBC (Auto) (0-5) /hpf Urine RBC (Auto) (0-2) /hpf U Hyaline Cast (Auto) (0-2) /lpf U Epithel Cells (Auto) (0-2) /hpf Urine Bacteria (Auto) (None Seen) Ur Random Creatinine mg/dl Ur Random Sodium mmol/L Salicylates (3.0-30) mg/dl Urine Opiates Screen (Neg) Ur Methadone, Qual (Neg) Urine Fentanyl Screen (Neg) Acetaminophen (10-30) ug/ml Urine Barbiturates (Neg) Ur Phencyclidine (PCP) (Neg) U Amphetamin/Meth Scrn (Neg) MDMA (Ecstasy) Screen (Neg) U Benzodiazepines Scrn (Neg) Ur Cocaine Metabolite (Neg) U Marijuana (THC) Screen (Neg) 01/10/24 01/10/24 01/10/24 Range/Units 13:25 14:18 14:20 WBC 16.46 H (4.8-10.8) K/ul RBC 3.59 L (4.70-6.10) M/uL Hgb 9.4 L (14.0-18.0) g/dl POC Hgb (14.0-18.0) g/dl Hct 28.3 L (42.0-52.0) % POC Hct (42-52) % MCV 78.8 L (80.0-100.0) fL MCH 26.2 (25.0-34.0) pg MCHC 33.2 (32.0-36.0) g/dL RDW Std Deviation 40.6 (36.4-46.3) fL RDW Coeff of Parveen 14.5 (11.5-14.5) % Plt Count 333 (130-400) K/uL MPV 10.3 (9.4-12.4) fL Immature Gran % (Auto) 1.0 % Neut % (Auto) 81.2 % Lymph % (Auto) 10.8 % [place] % (Auto) 6.8 % Eos % (Auto) 0.0 % Baso % (Auto) 0.2 % Neut # (Auto) 13.38 H (1.40-6.50) K/uL Lymph # (Auto) 1.77 (1.20-3.40) K/uL [place] # (Auto) 1.12 H (0.11-0.59) K/uL Eos # (Auto) 0.00 (0.00-0.50) K/uL Baso # (Auto) 0.03 (0.00-0.20) K/uL Immature Gran # (Auto) 0.16 (0.01-0.20) K/uL Specimen Type POC pH (7.35-7.45) POC pCO2 (35-46) mmHg POC pO2 (80-95) mmHg POC HCO3 (19-24) michelle/L POC Total CO2 (24-31) mmol/L POC Base Excess (-9-1.8) michelle/L POC ABG O2 Sat (90-95) % VBG pH 7.20 L (7.36-7.41) VBG pCO2 26 L (38-50) mmHg VBG pO2 41 mmHg VBG HCO3 10 mmol/L VBG O2 Saturation < 60.0 % VBG Base Excess -16.2 mEq/L POC Sodium (135-144) mmol/L Sodium 141 (136-145) mmol/L POC Potassium (3.3-5.0) mmol/L Potassium 2.5 L* (3.5-5.1) mmol/L Chloride 87 L (98-107) mmol/L Carbon Dioxide 10 L (21-32) mmol/L Anion Gap 44 H (3-11) BUN 53 H (6-23) mg/dl Creatinine 10.50 H* D (0.6-1.4) mg/dl Est Cr Clr Drug Dosing 9.0 ml/min eGFR 5.59 BUN/Creatinine Ratio 5.0 L (10-20) Glucose 286 H (70-99(Fasting)) mg/dl POC Glucose 300 H (70-99) mg/dl Osmolality 319 H (280-300) mOsm/kg Lactate 9.7 H* (0.4-2.0) mmol/L Calcium 5.0 L* (8.6-10.3) mg/dl Phosphorus 10.2 H (2.5-4.9) mg/dl Magnesium (1.7-2.4) mg/dl Total Bilirubin (0.2-1.0) mg/dl AST (13-39) U/L ALT (7-52) U/L Alkaline Phosphatase (34-104) U/L Troponin I High Sens 70.0 H* (0-20) pg/ml Total Protein (6.0-8.3) gm/dl Albumin (3.4-5.0) gm/dl Globulin (2.5-4.0) gm/dl Albumin/Globulin Ratio (0.9-2) Urine Color Yellow Urine Appearance Clear (Clear) Urine pH 5.5 (4.5-7.5) Ur Specific [place] 1.012 (1.000-1.030) Urine Protein 2+ H (Negative) Urine Glucose (UA) Negative (Negative) Urine Ketones 2+ H (Negative) Urine Blood 3+ H (Negative) Urine Nitrite Negative (Negative) Urine Bilirubin Negative (Negative) Urine Urobilinogen Negative (Negative) Ur Leukocyte Esterase Negative (Negative) Urine WBC (Auto) 0-5 (0-5) /hpf Urine RBC (Auto) 6-10 H (0-2) /hpf U Hyaline Cast (Auto) 3-5 H (0-2) /lpf U Epithel Cells (Auto) 0-2 (0-2) /hpf Urine Bacteria (Auto) None Seen (None Seen) Ur Random Creatinine 55.2 mg/dl Ur Random Sodium 103 mmol/L Salicylates < 3.0 L (3.0-30) mg/dl Urine Opiates Screen Neg (Neg) Ur Methadone, Qual Neg (Neg) Urine Fentanyl Screen Neg (Neg) Acetaminophen < 3 L (10-30) ug/ml Urine Barbiturates Neg (Neg) Ur Phencyclidine (PCP) Neg (Neg) U Amphetamin/Meth Scrn Pos H (Neg) MDMA (Ecstasy) Screen Neg (Neg) U Benzodiazepines Scrn Neg (Neg) Ur Cocaine Metabolite Neg (Neg) U Marijuana (THC) Screen Neg (Neg) 01/10/24 Range/Units 15:00 WBC (4.8-10.8) K/ul RBC (4.70-6.10) M/uL Hgb (14.0-18.0) g/dl POC Hgb 9.2 L (14.0-18.0) g/dl Hct (42.0-52.0) % POC Hct 27 L (42-52) % MCV (80.0-100.0) fL MCH (25.0-34.0) pg MCHC (32.0-36.0) g/dL RDW Std Deviation (36.4-46.3) fL RDW Coeff of Parveen (11.5-14.5) % Plt Count (130-400) K/uL MPV (9.4-12.4) fL Immature Gran % (Auto) % Neut % (Auto) % Lymph % (Auto) % [place] % (Auto) % Eos % (Auto) % Baso % (Auto) % Neut # (Auto) (1.40-6.50) K/uL Lymph # (Auto) (1.20-3.40) K/uL [place] # (Auto) (0.11-0.59) K/uL Eos # (Auto) (0.00-0.50) K/uL Baso # (Auto) (0.00-0.20) K/uL Immature Gran # (Auto) (0.01-0.20) K/uL Specimen Type Arterial POC pH 7.29 L (7.35-7.45) POC pCO2 21 L (35-46) mmHg POC pO2 113 H (80-95) mmHg POC HCO3 10 L (19-24) michelle/L POC Total CO2 11 L (24-31) mmol/L POC Base Excess -17.0 L (-9-1.8) michelle/L POC ABG O2 Sat 98.0 H (90-95) % VBG pH (7.36-7.41) VBG pCO2 (38-50) mmHg VBG pO2 mmHg VBG HCO3 mmol/L VBG O2 Saturation % VBG Base Excess mEq/L POC Sodium 134 L (135-144) mmol/L Sodium (136-145) mmol/L POC Potassium 2.2 L* (3.3-5.0) mmol/L Potassium (3.5-5.1) mmol/L Chloride (98-107) mmol/L Carbon Dioxide (21-32) mmol/L Anion Gap (3-11) BUN (6-23) mg/dl Creatinine (0.6-1.4) mg/dl Est Cr Clr Drug Dosing ml/min eGFR BUN/Creatinine Ratio (10-20) Glucose (70-99(Fasting)) mg/dl POC Glucose (70-99) mg/dl Osmolality (280-300) mOsm/kg Lactate (0.4-2.0) mmol/L Calcium (8.6-10.3) mg/dl Phosphorus (2.5-4.9) mg/dl Magnesium (1.7-2.4) mg/dl Total Bilirubin (0.2-1.0) mg/dl AST (13-39) U/L ALT (7-52) U/L Alkaline Phosphatase (34-104) U/L Troponin I High Sens (0-20) pg/ml Total Protein (6.0-8.3) gm/dl Albumin (3.4-5.0) gm/dl Globulin (2.5-4.0) gm/dl Albumin/Globulin Ratio (0.9-2) Urine Color Urine Appearance (Clear) Urine pH (4.5-7.5) Ur Specific [place] (1.000-1.030) Urine Protein (Negative) Urine Glucose (UA) (Negative) Urine Ketones (Negative) Urine Blood (Negative) Urine Nitrite (Negative) Urine Bilirubin (Negative) Urine Urobilinogen (Negative) Ur Leukocyte Esterase (Negative) Urine WBC (Auto) (0-5) /hpf Urine RBC (Auto) (0-2) /hpf U Hyaline Cast (Auto) (0-2) /lpf U Epithel Cells (Auto) (0-2) /hpf Urine Bacteria (Auto) (None Seen) Ur Random Creatinine mg/dl Ur Random Sodium mmol/L Salicylates (3.0-30) mg/dl Urine Opiates Screen (Neg) Ur Methadone, Qual (Neg) Urine Fentanyl Screen (Neg) Acetaminophen (10-30) ug/ml Urine Barbiturates (Neg) Ur Phencyclidine (PCP) (Neg) U Amphetamin/Meth Scrn (Neg) MDMA (Ecstasy) Screen (Neg) U Benzodiazepines Scrn (Neg) Ur Cocaine Metabolite (Neg) U Marijuana (THC) Screen (Neg) Administered Medications Heparin Sodium (Porcine) (Heparin Sod 5,000 Unit/0.5 Ml Vial) 5,000 units SQ BID NAHOMY Stop: 02/10/24 09:29 Last Admin: 01/12/24 08:09 Dose: 5,000 units Documented By: Admin: 01/11/24 20:40 Dose: 5,000 units Documented By: Admin: 01/11/24 09:52 Dose: 5,000 units Documented By: KWAN Pantoprazole Sodium (Protonix) 40 mg in 10 mls @ 5 mls/min IV BID NAHOMY Stop: 02/09/24 13:29 Last Admin: 01/12/24 08:08 Dose: 5 mls/min Documented By: Admin: 01/11/24 20:30 Dose: 5 mls/min Documented By: Admin: 01/11/24 08:33 Dose: 5 mls/min Documented By: Admin: 01/10/24 20:40 Dose: 5 mls/min Documented By: Admin: 01/10/24 16:28 Dose: 5 mls/min Documented By: KWAN Piperacillin Sod/Tazobactam Sod (Zosyn) 4.5 gm in 100 mls @ 25 mls/hr IV Q12 NAHOMY; Protocol Stop: 01/13/24 09:14 Last Admin: 01/12/24 08:08 Dose: 25 mls/hr Documented By: Infusion: 01/12/24 01:12 Dose: Infused Documented By: Admin: 01/11/24 20:24 Dose: 25 mls/hr Documented By: Infusion: 01/11/24 14:26 Dose: Infused Documented By: Admin: 01/11/24 09:45 Dose: 25 mls/hr Documented By: KWAN Insulin Aspart (Insulin Aspart Per Unit Charge) 0 units SC Q6 NAHOMY Stop: 02/09/24 15:59 Last Admin: 01/12/24 07:04 Dose: 1 units Documented By: BERENICE Co-signed By: RADHA Admin: 01/12/24 01:03 Dose: 1 units Documented By: BERENICE Co-signed By: RADHA Admin: 01/11/24 20:43 Dose: 3 units Documented By: BERENICE Co-signed By: RADHA Admin: 01/11/24 12:10 Dose: 1 units Documented By: KWAN Co-signed By: MARAH Admin: 01/11/24 05:21 Dose: Not Given Documented By: SARIAH Discontinued Medications Benzocaine/Butamben/Tetracaine HCl (Benzocaine/Tetracain/Butam 50 Appln/5 Gm Can) 1 appln EXT NOW STA Stop: 01/10/24 12:08 Last Admin: 01/10/24 19:29 Dose: Not Given Documented By: SARIAH Epoetin Delbert (Epoetin Delbert 10,000 Units/Ml Vial) 10,000 units IV TODAY@[facility] Stop: 01/11/24 16:00 Last Admin: 01/11/24 16:05 Dose: 10,000 units Documented By: HARRY Heparin Sodium (Porcine) (Heparin Sod (Porcine) 1000 Unit/Ml) 1,000 units IV ONE ONE Stop: 01/10/24 19:37 Last Admin: 01/10/24 19:43 Dose: Not Given Documented By: HARRY Heparin Sodium (Porcine) (Heparin Sod (Porcine) 1000 Unit/Ml) 500 units IV Q[facility] Stop: 01/10/24 19:46 Last Admin: 01/10/24 20:25 Dose: Not Given Documented By: HARRY Heparin Sodium (Porcine) (Heparin Sod (Porcine) 1000 Unit/Ml) 2,000 units IV ONE ONE Stop: 01/11/24 10:31 Last Admin: 01/11/24 15:44 Dose: Not Given Documented By: HARRY Heparin Sodium (Porcine) (Heparin Sod (Porcine) 1000 Unit/Ml) 500 units IV Q1H [facility] Stop: 01/11/24 11:31 Last Admin: 01/11/24 17:46 Dose: Not Given Documented By: Admin: 01/11/24 16:18 Dose: Not Given Documented By: HARRY Promethazine HCl (Phenergan) 12.5 mg in 50.5 mls @ 202 mls/hr IV NOW STA Stop: 01/10/24 11:03 Last Infusion: 01/10/24 11:20 Dose: Infused Documented By: Admin: 01/10/24 11:01 Dose: 202 mls/hr Documented By: ANTELMO Sodium Chloride (Nss) 1,000 mls @ 999 mls/hr IV .Q1H1M ONE Stop: 01/10/24 11:50 Last Infusion: 01/10/24 12:21 Dose: Infused Documented By: Admin: 01/10/24 10:57 Dose: 999 mls/hr Documented By: ANTELMO Famotidine (Pepcid 20mg Iv Push) 20 mg in 5 mls @ 2.5 mls/min IV NOW STA Stop: 01/10/24 10:51 Last Admin: 01/10/24 10:58 Dose: 2.5 mls/min Documented By: ANTELMO Potassium Chloride ([place] / Wtr) 10 meq in 100 mls @ 100 mls/hr IV Q1H NAHOMY Stop: 01/10/24 13:14 Last Infusion: 01/10/24 14:34 Dose: Infused Documented By: Admin: 01/10/24 13:03 Dose: 100 mls/hr Documented By: Infusion: 01/10/24 12:58 Dose: Infused Documented By: Admin: 01/10/24 11:58 Dose: 100 mls/hr Documented By: ANTELMO Magnesium Sulfate/Dextrose (Magnesium Sulfate / D5w) 1 gm in 100 mls @ 200 mls/hr IV Q30M NAHOMY Stop: 01/10/24 12:15 Last Infusion: 01/10/24 14:33 Dose: Infused Documented By: Admin: 01/10/24 13:03 Dose: 200 mls/hr Documented By: Infusion: 01/10/24 12:28 Dose: Infused Documented By: Admin: 01/10/24 11:58 Dose: 200 mls/hr Documented By: SITAK Calcium Gluconate () 1,000 mg in 60 mls @ 240 mls/hr IV NOW STA Stop: 01/10/24 11:30 Last Infusion: 01/10/24 12:21 Dose: Infused Documented By: Admin: 01/10/24 11:53 Dose: 240 mls/hr Documented By: SITAK Sodium Chloride (Nss) 1,000 mls @ 999 mls/hr IV .Q1H1M ONE Stop: 01/10/24 12:31 Last Infusion: 01/10/24 14:34 Dose: Infused Documented By: Admin: 01/10/24 11:58 Dose: 999 mls/hr Documented By: ANTELMO Parenteral Electrolytes (Plasma-Lyte A Ph 7.4) 2,000 mls @ 999 mls/hr IV .Q2H1M ONE Stop: 01/10/24 16:44 Last Infusion: 01/10/24 16:14 Dose: Infused Documented By: Admin: 01/10/24 15:22 Dose: 999 mls/hr Documented By: ANTELMO Piperacillin Sod/Tazobactam Sod (Zosyn) 4.5 gm in 100 mls @ 200 mls/hr IV NOW ONE; Protocol Stop: 01/10/24 15:14 Last Infusion: 01/10/24 16:42 Dose: Infused Documented By: Admin: 01/10/24 15:25 Dose: 200 mls/hr Documented By: ANTELMO Calcium Gluconate () 1,000 mg in 60 mls @ 240 mls/hr IV Q15M NAHOMY Stop: 01/10/24 15:59 Last Infusion: 01/10/24 16:42 Dose: Infused Documented By: Admin: 01/10/24 16:18 Dose: 240 mls/hr Documented By: Infusion: 01/10/24 15:51 Dose: Infused Documented By: Admin: 01/10/24 15:38 Dose: 240 mls/hr Documented By: ANTELMO Magnesium Sulfate/Dextrose (Magnesium Sulfate / D5w) 1 gm in 100 mls @ 50 mls/hr IV Q2H [facility] Stop: 01/11/24 01:29 Last Infusion: 01/10/24 19:40 Dose: Infused Documented By: Admin: 01/10/24 18:06 Dose: 50 mls/hr Documented By: Infusion: 01/10/24 18:06 Dose: Infused Documented By: Admin: 01/10/24 16:20 Dose: 50 mls/hr Documented By: Infusion: 01/10/24 16:20 Dose: Infused Documented By: Admin: 01/10/24 15:50 Dose: 50 mls/hr Documented By: ANTELMO Potassium Chloride (K [place] / Wtr) 20 meq in 100 mls @ 50 mls/hr IV ONE ONE Stop: 01/10/24 17:32 Last Infusion: 01/10/24 20:25 Dose: Infused Documented By: SARIAH Co-signed By: ANGIE Admin: 01/10/24 16:27 Dose: 50 mls/hr Documented By: KWAN Co-signed By: MARAH Lactated Ringer's (Lr) 1,000 mls @ 80 mls/hr IV .[id number] NAHOMY Stop: 01/11/24 16:29 Last Infusion: 01/11/24 13:39 Dose: Infused Documented By: Admin: 01/11/24 05:21 Dose: 125 mls/hr Documented By: Infusion: 01/11/24 05:21 Dose: Infused Documented By: Admin: 01/10/24 22:08 Dose: 125 mls/hr Documented By: Infusion: 01/10/24 22:08 Dose: Infused Documented By: Admin: 01/10/24 16:38 Dose: 125 mls/hr Documented By: KWAN Potassium Chloride (K Tigre / Wtr) 10 meq in 100 mls @ 100 mls/hr IV ONE ONE Stop: 01/10/24 17:13 Last Admin: 01/10/24 16:43 Dose: Not Given Documented By: KWAN Potassium Chloride (K Tigre / Wtr) 20 meq in 100 mls @ 50 mls/hr IV Q2H NAHOMY Stop: 01/11/24 01:59 Last Infusion: 01/11/24 02:10 Dose: Infused Documented By: CP Co-signed By: GARRETT Admin: 01/11/24 00:09 Dose: 50 mls/hr Documented By: SARIAH Co-signed By: ANGIE Infusion: 01/11/24 00:06 Dose: Infused Documented By: CP Co-signed By: ANGIE Admin: 01/10/24 22:06 Dose: 50 mls/hr Documented By: SARIAH Co-signed By: TRINIDAD Infusion: 01/10/24 22:06 Dose: Infused Documented By: SARIAH Co-signed By: TRINIDAD Admin: 01/10/24 20:11 Dose: 50 mls/hr Documented By: CP Co-signed By: JMarcelle Infusion: 01/10/24 20:07 Dose: Infused Documented By: CP Co-signed By: JMarcelle Admin: 01/10/24 18:07 Dose: 50 mls/hr Documented By: KWAN Co-signed By: DANIEL Calcium Gluconate () 1,000 mg in 60 mls @ 240 mls/hr IV Q15M NAHOMY Stop: 01/10/24 19:59 Last Infusion: 01/10/24 20:31 Dose: Infused Documented By: Admin: 01/10/24 20:13 Dose: 240 mls/hr Documented By: Infusion: 01/10/24 20:03 Dose: Infused Documented By: Admin: 01/10/24 19:48 Dose: 240 mls/hr Documented By: Infusion: 01/10/24 19:44 Dose: Infused Documented By: Admin: 01/10/24 19:29 Dose: 240 mls/hr Documented By: SARIAH Potassium Chloride (K Tigre / Wtr) 20 meq in 100 mls @ 50 mls/hr IV Q2H NAHOMY Stop: 01/11/24 04:44 Last Infusion: 01/11/24 05:59 Dose: Infused Documented By: SARIAH Co-signed By: ANGIE Admin: 01/11/24 03:56 Dose: 50 mls/hr Documented By: SARIAH Co-signed By: ANGIE Infusion: 01/11/24 03:56 Dose: Infused Documented By: SARIAH Co-signed By: ANGIE Admin: 01/11/24 02:10 Dose: 50 mls/hr Documented By: SARIAH Co-signed By: GARRETT Potassium Chloride (K Tigre / Wtr) 20 meq in 100 mls @ 50 mls/hr IV Q2H NAHOMY Stop: 01/11/24 12:14 Last Infusion: 01/11/24 13:30 Dose: Infused Documented By: KWAN Co-signed By: NASIMA Admin: 01/11/24 11:11 Dose: 50 mls/hr Documented By: KWAN Co-signed By: NASIMA Infusion: 01/11/24 11:09 Dose: Infused Documented By: KWAN Co-signed By: NASIMA Admin: 01/11/24 09:09 Dose: 50 mls/hr Documented By: KWAN Co-signed By: MARAH Infusion: 01/11/24 09:04 Dose: Infused Documented By: KWAN Co-signed By: MARAH Admin: 01/11/24 07:04 Dose: 50 mls/hr Documented By: KWAN Co-signed By: NASIMA Magnesium Sulfate/Dextrose (Magnesium Sulfate / D5w) 1 gm in 100 mls @ 50 mls/hr IV ONE ONE Stop: 01/11/24 10:25 Last Infusion: 01/11/24 10:57 Dose: Infused Documented By: Admin: 01/11/24 08:33 Dose: 50 mls/hr Documented By: KWAN Calcium Gluconate () 1,000 mg in 60 mls @ 240 mls/hr IV Q15M NAHOMY Stop: 01/11/24 08:59 Last Infusion: 01/11/24 10:57 Dose: Infused Documented By: Admin: 01/11/24 09:45 Dose: 240 mls/hr Documented By: Infusion: 01/11/24 09:11 Dose: Infused Documented By: Admin: 01/11/24 08:56 Dose: 240 mls/hr Documented By: KWAN Calcium Gluconate () 1,000 mg in 60 mls @ 240 mls/hr IV Q15M NAHOMY Stop: 01/11/24 15:29 Last Infusion: 01/11/24 17:48 Dose: Infused Documented By: Admin: 01/11/24 17:08 Dose: 240 mls/hr Documented By: Infusion: 01/11/24 16:56 Dose: Infused Documented By: Admin: 01/11/24 15:09 Dose: 240 mls/hr Documented By: KWAN Potassium Chloride (K Tigre / Wtr) 20 meq in 100 mls @ 50 mls/hr IV Q2H NAHOMY Stop: 01/11/24 18:59 Last Infusion: 01/11/24 19:52 Dose: Infused Documented By: BERENICE Co-signed By: RADHA Admin: 01/11/24 17:07 Dose: 50 mls/hr Documented By: KWAN Co-signed By: MARAH Infusion: 01/11/24 17:03 Dose: Infused Documented By: KWAN Co-signed By: MARAH Admin: 01/11/24 15:03 Dose: 50 mls/hr Documented By: KWAN Co-signed By: MARAH Potassium Chloride (K Tigre / Wtr) 10 meq in 100 mls @ 100 mls/hr IV Q1H NAHOMY Stop: 01/12/24 05:29 Last Infusion: 01/12/24 06:06 Dose: Infused Documented By: Admin: 01/12/24 05:06 Dose: 100 mls/hr Documented By: Infusion: 01/12/24 05:04 Dose: Infused Documented By: Admin: 01/12/24 04:04 Dose: 100 mls/hr Documented By: BERENICE Insulin Aspart (Insulin Aspart Per Unit Charge) 0 units SC Q6 NAHOMY Stop: 02/09/24 14:44 Last Admin: 01/10/24 17:00 Dose: Not Given Documented By: KWAN Insulin Aspart (Insulin Aspart Per Unit Charge) 0 units SC Q4 NAHOMY Stop: 02/09/24 15:59 Last Admin: 01/10/24 20:45 Dose: Not Given Documented By: Admin: 01/10/24 16:13 Dose: Not Given Documented By: ANTELMO Lidocaine HCl (Lidocaine 2% Jelly 5 Ml Tube) 5 ml EXT NOW ONE Stop: 01/10/24 12:09 Last Admin: 01/10/24 13:03 Dose: 5 ml Documented By: ANTELMO Lorazepam (Lorazepam 2 Mg/1 Ml Vial) 1 mg IV NOW STA Stop: 01/10/24 12:08 Last Admin: 01/10/24 12:25 Dose: 1 mg Documented By: ANTELMO Ondansetron HCl (Ondansetron Inj 2 Mg/Ml 2 Ml Vial) 4 mg IV NOW STA Stop: 01/10/24 10:32 Last Admin: 01/10/24 10:53 Dose: Not Given Documented By: Potassium Chloride (Potassium Chloride Crtab 20 Meq Tabcr) 40 meq PO NOW ONE Stop: 01/12/24 03:21 Last Admin: 01/12/24 03:48 Dose: 40 meq Documented By: [facility] [place] Imaging Data Radiologist's Impression: Chest X-Ray 01/10/24 11:08 SINGLE VIEW CHEST CLINICAL HISTORY: Vomiting. FINDINGS: An AP, portable, upright chest radiograph is compared to study dated 04/20/2014. The cardiomediastinal silhouette is unremarkable. The lungs and pleural spaces are clear. No pneumothorax is seen. The bony thorax is grossly intact. IMPRESSION: No active disease in the chest. ACT 112: Negative or not required by law. Electronically signed by: Aaron Gonzales M.D. 01/10/2024 11:34 AM KUB X-Ray 01/10/24 11:08 KUB CLINICAL HISTORY: Vomiting. FINDINGS: 2 AP, portable, supine abdominal radiographs are obtained. No prior studies are available for comparison at the time of dictation. There are distended and gas-filled loops of small bowel which measure up to 3.3 cm in diameter. There is a paucity of gas in the colon. No evidence of intraperitoneal free air is seen on this supine image. There are no abnormal abdominal calcifications. Small phleboliths are noted in the pelvis. The bony structures appear intact. IMPRESSION: There are distended and gas-filled loops of small bowel. This is indeterminant and could be seen with a nonspecific enteritis. A developing bowel obstruction is not excluded. Correlate clinically. Electronically signed by: Aaron Gonzales M.D. 01/10/2024 11:35 AM Abdomen/Pelvis CT 01/10/24 11:17 CT SCAN OF THE ABDOMEN AND PELVIS WITHOUT IV CONTRAST CLINICAL HISTORY: Acute renal insufficiency. Vomiting. COMPARISON STUDY: Abdominal x-ray dated 01/10/2024. TECHNIQUE: CT scan of the abdomen and pelvis is performed from the lung bases to the proximal femora. Images are reviewed in the axial, sagittal, and coronal planes. IV contrast was not administered for this examination due to poor renal function. Note that the examination is suboptimal without oral and IV contrast. A dose lowering technique was utilized adhering to the principles of ALARA. CT DOSE: 671.79 mGy.cm FINDINGS: Lung bases: The heart is normal in size and without pericardial effusion. The lung bases are clear. The distal esophagus is mildly distended and filled with fluid. Liver: The unenhanced liver is normal in size, contour, and attenuation. There is no intrahepatic biliary ductal dilatation. Gallbladder: Unremarkable. Spleen: Normal in size and attenuation. Pancreas: Unremarkable. Adrenal glands: Unremarkable. Kidneys: The unenhanced kidneys are normal in size and without hydronephrosis. No renal calculi are identified and no ureteral stone is seen. There is no evidence of contour deforming renal mass lesion. There is nonspecific bilateral perinephric stranding. Abdominal vasculature: The abdominal aorta is normal in course and caliber. Bowel: The stomach is significantly distended and fluid-filled. The duodenum is normal in caliber, there is no evidence of high-grade bowel obstruction. The colon is relatively decompressed and appears diffusely thick walled. There is no significant surrounding inflammation. The appendix is not identified and reported surgically absent. Peritoneum: There is no intraperitoneal free air or abdominal ascites. There is a fat-containing umbilical hernia. Lymphadenopathy: None. Pelvic viscera: The bladder, prostate, and seminal vesicles are normal as imaged. Skeletal structures: No lytic or blastic lesions are seen. IMPRESSION: 1. The stomach is significantly distended and fluid-filled, as is the distal esophagus. The duodenum is normal in caliber as are the small bowel loops. Correlate clinically for evidence of gastric outlet obstruction. 2. The colon is relatively decompressed and appears circumferentially thick walled. Some this may be related to underdistention. Correlate clinically for evidence of a mild nonspecific colitis. 3. There is nonspecific perinephric stranding. Correlate with clinical findings and urinalysis. 4. Additional findings as above. ACT 112: Negative or not required by law. Electronically signed by: Aaron Gonzales M.D. 01/10/2024 11:56 AM Chest X-Ray 01/10/24 12:07 SINGLE VIEW CHEST CLINICAL HISTORY: Enteric tube placement. FINDINGS: An AP, portable, upright chest radiograph is compared to study performed earlier the same day 01/10/2024. An enteric tube has been placed. The tip projects just below the diaphragm, with the sideholes located above the diaphragm. The cardiomediastinal silhouette is unremarkable. The lungs and pleural spaces are clear. No pneumothorax is seen. The bony thorax is grossly intact. IMPRESSION: 1. An enteric tube has been placed as above. This should be advanced. 2. The lungs are clear. ACT 112: Negative or not required by law. Electronically signed by: Aaron Gonzales M.D. 01/10/2024 1:46 PM KUB X-Ray 01/10/24 13:23 XR KUB/Abdomen 1 view CLINICAL HISTORY: NG placement TECHNIQUE: 1 view of the abdomen was obtained. Comparison: None available at the time of this dictation. FINDINGS: Enteric tube side-port is above the diaphragm. The osseous structures are grossly unremarkable. Small stool burden is seen. IMPRESSION: Enteric tube side-port is above the diaphragm. It can be advanced approximately 7 cm for improved positioning. ACT 112: Negative or not required by law. Electronically signed by: Rush Mccormick M.D. 01/10/2024 1:33 PM Discharge Plan Visit Data Chief Complaint: Hypoglycemia Stated Complaint: DIABETIC, VOMITING 1 WEEK, LOW SUGAR, SOB, FATIGUE ED Provider: Amy Sandoval Discharge Problem: Acute renal failure (ARF), Gastric outlet obstruction, Vomiting, Acute hypokalemia, Hypocalcemia Patient Disposition: Admitted As Inpatient Discharge Instructions Interventions: ED Discharge Assessment Last Done: 01/10/24 16:17 Discharge Problem: Acute renal failure (ARF) Qualifiers: Acute renal failure type: unspecified Qualified Code(s): N17.9 - Acute kidney failure, unspecified Vomiting Qualifiers: Vomiting type: unspecified Nausea presence: with nausea Qualified Code(s): R 11.2 - Nausea with vomiting, unspecified
[2024-01-10 15:20] LABS: Phosphorus 10.2 mg/dl (2.5-4.9); Potassium 2.5 mmol/L (3.5-5.1)
[2024-01-10] MEDS: PLASMA-LYTE A 2,000 ML IV ONE (15:22)
[2024-01-10 15:23] LABS: iSTAT Arterial Blood Gas HCO3 10 meg/L (19-24); iSTAT Arterial Blood Gas pCO2 21 mmHg (35-46); iSTAT Arterial Blood Gas pH 7.29 (7.35-7.45); iSTAT Arterial Blood Gas pO2 113 mmHg (80-95); iSTAT Carbon Dioxide 11 mmol/L (24-31); iSTAT Hematocrit 27 % (42-52); iSTAT Hemoglobin 9.2 g/dl (14.0-18.0); iSTAT Potassium 2.2 mmol/L (3.3-5.0); iSTAT Sample Type Arterial; iSTAT Sodium 134 mmol/L (135-144)
[2024-01-10] MEDS: PIPERACILLIN/TAZOBACTAM 4.5 GM/100 ML BAG IV ONE (15:25)
[2024-01-10] MEDS: CALCIUM GLUCONATE 1,000 MG/60 ML BAG IV SCH ×2 (15:38→19:29)
[2024-01-10 15:58] LABS: Acetaminophen < 3 ug/ml (10-30); Salicylate < 3.0 mg/dl (3.0-30)
[2024-01-10] MEDS: INSULIN ASPART PER UNIT CHARGE SC SCH ×2 (16:13→17:00)
--- NOTE | 2024-01-10 16:23 | Nephrology Consultation ---
Date of Consultation January 10, 2024 History of Present Illness Attending Physician: Elissa Harris MD History of Present Illness 48 y/o M Allergies Allergy/AdvReac Type Severity Reaction Status Date / Time naloxone AdvReac Mild nauseaous Verified 07/26/23 07:36 and drowsy Home Medications Medication Instructions Recorded Confirmed Type blood sugar diagnostic (OneTouch #100 ea 12/17/19 07/26/23 Rx Ultra Blue Test Strip) blood-glucose meter (OneTouch #1 ea 12/17/19 07/26/23 Rx Ultra2 Meter) buprenorphine HCl 8 mg sublingual 8 mg sublingual UD 06/06/20 01/10/24 History tablet pantoprazole 40 mg tablet,delayed 40 mg PO QAM #90 tabs 08/26/23 01/10/24 Rx release rosuvastatin 40 mg tablet 40 mg PO QAM #90 tabs 08/26/23 01/10/24 Rx metformin 500 mg tablet,extended 1,000 mg (2 x 500 mg) PO BID #360 10/16/23 01/10/24 Rx release 24 hr tabs semaglutide 0.25 mg or 0.5 mg (2 0.5 mg (0.736 mL) subcut .weekly 01/02/24 01/10/24 Rx mg/3 mL) subcutaneous pen injector #3 mL (Saffron Digitalempic) Patient History Medical History Restless leg syndrome Migraine occasional History of alcohol abuse Surgical History History of colonoscopy History of esophagogastroduodenoscopy (EGD) H/O wisdom tooth extraction S/P hardware removal right hand History of open reduction and internal fixation (ORIF) procedure right hand Hx of appendectomy Family History Father Brain tumor Mental disorder Grandfather (Paternal) Coronary heart disease Type 2 diabetes mellitus Mother Mental disorder Grandfather (Maternal) Type 2 diabetes mellitus Denies family history of Ovarian cancer Prostate cancer Myocardial infarction Breast cancer Colorectal cancer Social History Smoking Status: Former smoker Tobacco Type: Smokeless Tobacco (Dip or Chew) Second Hand Exposure: Yes (as a child); Do You Dip or Chew Tobacco: Yes; Hx Alcohol Use: No ((hx heavy alcohol use) quit in 2015) Hx Substance Use: No (hx of misuse of RX (per pcp notes)) Preferred Language: Hungarian Communication Ability: Effective Visual Impairment: No Limitations Hearing Ability: Normal Student Services Representative Required: No Beliefs That Will Affect Care: None marital status: Current Living Situation: Family current occupational status: employed 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 caffeine: Yes (Soda 1 can per day. ) during the past year weight has: remained stable Dental Care, Regularly: No Physical Activity Frequency: 5-6 Times per Week Seatbelt Use: always Sunscreen Use: Yes Assistive Devices: None Results & Data Vital Signs (Past 12 Hours) Vital Signs Temp Pulse Pulse Resp BP BP Pulse Ox 01/10/24 15:03 87 17 114/62 100 01/10/24 13:57 91 H 23 119/61 01/10/24 13:00 89 18 113/53 L 01/10/24 12:24 91 H 13 122/60 100 01/10/24 12:10 93 H 01/10/24 12:07 91 H 14 118/64 100 01/10/24 12:07 100 01/10/24 11:54 90 19 118/64 100 01/10/24 11:03 109/63 01/10/24 10:54 85 16 109/63 100 01/10/24 10:10 36.0 C L 89 20 111/70 99 O2 Del Method 01/10/24 15:03 01/10/24 13:57 01/10/24 13:00 01/10/24 12:24 01/10/24 12:10 01/10/24 12:07 Room Air 01/10/24 12:07 Room Air 01/10/24 11:54 01/10/24 11:03 01/10/24 10:54 01/10/24 10:10
[2024-01-10 16:24] LABS: Amphetamines+Metham, Urine Pos (Neg); Barbiturates, Urine Neg (Neg); Benzodiazepine, Urine Neg (Neg); Cocaine, Urine Neg (Neg); Fentanyl, Urine Neg (Neg); MDMA (Ecstacy), Urine Neg (Neg); Marijuana, Urine Neg (Neg); Methadone, Urine Neg (Neg); Opiate, Urine Neg (Neg); Phencyclidine, Urine Neg (Neg)
--- NOTE | 2024-01-10 16:26 | Gastrointestinal Consultation ---
Date of Consultation January 10, 2024 Assessment & Plan (1) Gastric outlet obstruction: Suspect dilated stomach on CT scan is most likely functional due to gastroparesis. This could be multifactorial related to his underlying diabetes exacerbated by Ozempic therapy and further exacerbated by significant electrolyte abnormalities. In addition this could have been precipitated by gastroenteritis. Need to consider the possibility of DKA as well as a precipitating event in light of his acidosis. Agree with NG tube placement aggressive correction of electrolyte abnormalities. Rule out DKA. Consult renal. If renal function does not improve he may be a candidate for dialysis if his acidosis is not improved. Hold Ozempic. Rule out sepsis. Once clinically improved could reassess gastric emptying and rule out any luminal pathology. Doubt mesenteric ischemia as explanation for the lactic acidosis. Abdominal exam is benign and imaging notsupportive of this. (2) Nausea & vomiting: Suspect multifactorial due to diabetes, Ozempic possible gastroenteritis. Aggravated by electrolyte abnormalities. Continue management as outlined above. Plan See recommendations above History of Present Illness Reason for Consultation: Possible gastric outlet obstruction Attending Physician: Elissa Harris MD History of Present Illness Patient presents with a 5-day history of nausea and vomiting. He has a history of anxiety/depression, HLD, HTN, anemia, h/o opioid and alcohol abuse. He is a diabetic on Ozempic. He may have some underlying chronic renal insufficiency by history. No recent endoscopic evaluation last endoscopy was in 2018. On pres entation he was found to have significant electrolyte abnormalities including hypokalemia hypocalcemia lactic acidosis and acute renal injury. CT scan of the abdomen shows a significantly dilated stomach normal small bowel collapsed colon. Unable to obtain direct history from patient due to altered mental status Allergies Allergy/AdvReac Type Severity Reaction Status Date / Time naloxone AdvReac Mild nauseaous Verified 07/26/23 07:36 and drowsy Home Medications Medication Instructions Recorded Confirmed Type blood sugar diagnostic (OneTouch #100 ea 12/17/19 07/26/23 Rx Ultra Blue Test Strip) blood-glucose meter (OneTouch #1 ea 12/17/19 07/26/23 Rx Ultra2 Meter) buprenorphine HCl 8 mg sublingual 8 mg sublingual UD 06/06/20 01/10/24 History tablet pantoprazole 40 mg tablet,delayed 40 mg PO QAM #90 tabs 08/26/23 01/10/24 Rx release rosuvastatin 40 mg tablet 40 mg PO QAM #90 tabs 08/26/23 01/10/24 Rx metformin 500 mg tablet,extended 1,000 mg (2 x 500 mg) PO BID #360 10/16/23 01/10/24 Rx release 24 hr tabs semaglutide 0.25 mg or 0.5 mg (2 0.5 mg (0.736 mL) subcut .weekly 01/02/24 01/10/24 Rx mg/3 mL) subcutaneous pen injector #3 mL (Ozempic) Patient History Medical History Restless leg syndrome Migraine occasional History of alcohol abuse Surgical History History of colonoscopy History of esophagogastroduodenoscopy (EGD) H/O wisdom tooth extraction S/P hardware removal right hand History of open reduction and internal fixation (ORIF) procedure right hand Hx of appendectomy Family History Father Brain tumor Mental disorder Grandfather (Paternal) Coronary heart disease Type 2 diabetes mellitus Mother Mental disorder Grandfather (Maternal) Type 2 diabetes mellitus Denies family history of Ovarian cancer Prostate cancer Myocardial infarction Breast cancer Colorectal cancer Social History Smoking Status: Former smoker Tobacco Type: Smokeless Tobacco (Dip or Chew) Second Hand Exposure: Yes (as a child); Do You Dip or Chew Tobacco: Yes; Hx Alcohol Use: No ((hx heavy alcohol use) quit in 2014) Hx Substance Use: No (hx of misuse of RX (per pcp notes)) Preferred Language: Ukrainian Communication Ability: Effective Visual Impairment: No Limitations Hearing Ability: Normal Tree Deadener Required: No Beliefs That Will Affect Care: None marital status: Current Living Situation: Family current occupational status: employed 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 caffeine: Yes (Soda 1 can per day. ) during the past year weight has: remained stable Dental Care, Regularly: No Physical Activity Frequency: 5-6 Times per Week Seatbelt Use: always Sunscreen Use: Yes Assistive Devices: None Review of Systems Review of Systems: No fever No chills Altered mental status does not allow me to obtain review of systems Physical Exam Physical Exam: Eyes; anicteric HENT No masses Chest clear to A Cor S1, S2 physiologic Abd: softer nontender no masses Ext no edema Results & Data Vital Signs (Past 12 Hours) Vital Signs Temp Pulse Pulse Resp BP BP Pulse Ox 01/10/24 15:03 87 17 114/62 100 01/10/24 13:57 91 H 23 119/61 01/10/24 13:00 89 18 113/53 L 01/10/24 12:24 91 H 13 122/60 100 01/10/24 12:10 93 H 01/10/24 12:07 91 H 14 118/64 100 01/10/24 12:07 100 01/10/24 11:54 90 19 118/64 100 01/10/24 11:03 109/63 01/10/24 10:54 85 16 109/63 100 01/10/24 10:10 36.0 C L 89 20 111/70 99 O2 Del Method 01/10/24 15:03 01/10/24 13:57 01/10/24 13:00 01/10/24 12:24 01/10/24 12:10 01/10/24 12:07 Room Air 01/10/24 12:07 Room Air 01/10/24 11:54 01/10/24 11:03 01/10/24 10:54 01/10/24 10:10 Laboratory Results Abnormal lab results 01/10/24 01/10/24 01/10/24 Range/Units 10:19 10:35 11:54 WBC 16.76 H (4.8-10.8) K/ul RBC 4.07 L (4.70-6.10) M/uL Hgb 10.7 L (14.0-18.0) g/dl POC Hgb (14.0-18.0) g/dl Hct 32.2 L (42.0-52.0) % POC Hct (42-52) % MCV 79.1 L (80.0-100.0) fL Neut # (Auto) 13.23 H (1.40-6.50) K/uL [place] # (Auto) 1.03 H (0.11-0.59) K/uL POC pH (7.35-7.45) POC pCO2 (35-46) mmHg POC pO2 (80-95) mmHg POC HCO3 (19-24) michelle/L POC Total CO2 (24-31) mmol/L POC Base Excess (-9-1.8) michelle/L POC ABG O2 Sat (90-95) % VBG pH (7.36-7.41) VBG pCO2 (38-50) mmHg POC Sodium (135-144) mmol/L POC Potassium (3.3-5.0) mmol/L Potassium 2.5 L* 2.7 L (3.5-5.1) mmol/L Chloride 79 L 82 L (98-107) mmol/L Carbon Dioxide 9 L* 9 L* (21-32) mmol/L Anion Gap 53 H 52 H (3-11) BUN 52 H 53 H (6-23) mg/dl Creatinine 11.34 H* 10.92 H* D (0.6-1.4) mg/dl BUN/Creatinine Ratio 4.6 L 4.9 L (10-20) Glucose 308 H* 260 H (70-99(Fasting)) mg/dl POC Glucose 297 H (70-99) mg/dl Osmolality (280-300) mOsm/kg Lactate 11.9 H* (0.4-2.0) mmol/L Calcium 5.5 L* 5.4 L* (8.6-10.3) mg/dl Phosphorus (2.5-4.9) mg/dl Magnesium 1.0 L (1.7-2.4) mg/dl Troponin I High Sens 65.3 H* 61.8 H* (0-20) pg/ml Urine Protein (Negative) Urine Ketones (Negative) Urine Blood (Negative) Urine RBC (Auto) (0-2) /hpf U Hyaline Cast (Auto) (0-2) /lpf Salicylates (3.0-30) mg/dl Acetaminophen (10-30) ug/ml 01/10/24 01/10/24 01/10/24 Range/Units 13:25 14:18 14:20 WBC 16.46 H (4.8-10.8) K/ul RBC 3.59 L (4.70-6.10) M/uL Hgb 9.4 L (14.0-18.0) g/dl POC Hgb (14.0-18.0) g/dl Hct 28.3 L (42.0-52.0) % POC Hct (42-52) % MCV 78.8 L (80.0-100.0) fL Neut # (Auto) 13.38 H (1.40-6.50) K/uL [place] # (Auto) 1.12 H (0.11-0.59) K/uL POC pH (7.35-7.45) POC pCO2 (35-46) mmHg POC pO2 (80-95) mmHg POC HCO3 (19-24) michelle/L POC Total CO2 (24-31) mmol/L POC Base Excess (-9-1.8) michelle/L POC ABG O2 Sat (90-95) % VBG pH 7.20 L (7.36-7.41) VBG pCO2 26 L (38-50) mmHg POC Sodium (135-144) mmol/L POC Potassium (3.3-5.0) mmol/L Potassium 2.5 L* (3.5-5.1) mmol/L Chloride 87 L (98-107) mmol/L Carbon Dioxide 10 L (21-32) mmol/L Anion Gap 44 H (3-11) BUN 53 H (6-23) mg/dl Creatinine 10.50 H* D (0.6-1.4) mg/dl BUN/Creatinine Ratio 5.0 L (10-20) Glucose 286 H (70-99(Fasting)) mg/dl POC Glucose 300 H (70-99) mg/dl Osmolality 319 H (280-300) mOsm/kg Lactate 9.7 H* (0.4-2.0) mmol/L Calcium 5.0 L* (8.6-10.3) mg/dl Phosphorus 10.2 H (2.5-4.9) mg/dl Magnesium (1.7-2.4) mg/dl Troponin I High Sens 70.0 H* (0-20) pg/ml Urine Protein 2+ H (Negative) Urine Ketones 2+ H (Negative) Urine Blood 3+ H (Negative) Urine RBC (Auto) 6-10 H (0-2) /hpf U Hyaline Cast (Auto) 3-5 H (0-2) /lpf Salicylates < 3.0 L (3.0-30) mg/dl Acetaminophen < 3 L (10-30) ug/ml 01/10/24 01/10/24 Range/Units 15:00 16:06 WBC (4.8-10.8) K/ul RBC (4.70-6.10) M/uL Hgb (14.0-18.0) g/dl POC Hgb 9.2 L (14.0-18.0) g/dl Hct (42.0-52.0) % POC Hct 27 L (42-52) % MCV (80.0-100.0) fL Neut # (Auto) (1.40-6.50) K/uL [place] # (Auto) (0.11-0.59) K/uL POC pH 7.29 L (7.35-7.45) POC pCO2 21 L (35-46) mmHg POC pO2 113 H (80-95) mmHg POC HCO3 10 L (19-24) michelle/L POC Total CO2 11 L (24-31) mmol/L POC Base Excess -17.0 L (-9-1.8) michelle/L POC ABG O2 Sat 98.0 H (90-95) % VBG pH (7.36-7.41) VBG pCO2 (38-50) mmHg POC Sodium 134 L (135-144) mmol/L POC Potassium 2.2 L* (3.3-5.0) mmol/L Potassium (3.5-5.1) mmol/L Chloride (98-107) mmol/L Carbon Dioxide (21-32) mmol/L Anion Gap (3-11) BUN (6-23) mg/dl Creatinine (0.6-1.4) mg/dl BUN/Creatinine Ratio (10-20) Glucose (70-99(Fasting)) mg/dl POC Glucose 230 H (70-99) mg/dl Osmolality (280-300) mOsm/kg Lactate (0.4-2.0) mmol/L Calcium (8.6-10.3) mg/dl Phosphorus (2.5-4.9) mg/dl Magnesium (1.7-2.4) mg/dl Troponin I High Sens (0-20) pg/ml Urine Protein (Negative) Urine Ketones (Negative) Urine Blood (Negative) Urine RBC (Auto) (0-2) /hpf U Hyaline Cast (Auto) (0-2) /lpf Salicylates (3.0-30) mg/dl Acetaminophen (10-30) ug/ml Diagnostic Findings Chest X-Ray 01/10/24 11:08 SINGLE VIEW CHEST CLINICAL HISTORY: Vomiting. FINDINGS: An AP, portable, upright chest radiograph is compared to study dated 04/20/2014. The cardiomediastinal silhouette is unremarkable. The lungs and pleural spaces are clear. No pneumothorax is seen. The bony thorax is grossly intact. IMPRESSION: No active disease in the chest. ACT 112: Negative or not required by law. Electronically signed by: Aaron Gonzales M.D. 01/10/2024 11:34 AM KUB X-Ray 01/10/24 11:08 KUB CLINICAL HISTORY: Vomiting. FINDINGS: 2 AP, portable, supine abdominal radiographs are obtained. No prior studies are available for comparison at the time of dictation. There are distended and gas-filled loops of small bowel which measure up to 3.3 cm in diameter. There is a paucity of gas in the colon. No evidence of intraperitoneal free air is seen on this supine image. There are no abnormal abdominal calcifications. Small phleboliths are noted in the pelvis. The bony structures appear intact. IMPRESSION: There are distended and gas-filled loops of small bowel. This is indeterminant and could be seen with a nonspecific enteritis. A developing bowel obstruction is not excluded. Correlate clinically. Electronically signed by: Aaron Gonzales M.D. 01/10/2024 11:35 AM Abdomen/Pelvis CT 01/10/24 11:17 CT SCAN OF THE ABDOMEN AND PELVIS WITHOUT IV CONTRAST CLINICAL HISTORY: Acute renal insufficiency. Vomiting. COMPARISON STUDY: Abdominal x-ray dated 01/10/2024. TECHNIQUE: CT scan of the abdomen and pelvis is performed from the lung bases to the proximal femora. Images are reviewed in the axial, sagittal, and coronal planes. IV contrast was not administered for this examination due to poor renal function. Note that the examination is suboptimal without oral and IV contrast. A dose lowering technique was utilized adhering to the principles of ALARA. CT DOSE: 671.79 mGy.cm FINDINGS: Lung bases: The heart is normal in size and without pericardial effusion. The lung bases are clear. The distal esophagus is mildly distended and filled with fluid. Liver: The unenhanced liver is normal in size, contour, and attenuation. There is no intrahepatic biliary ductal dilatation. Gallbladder: Unremarkable. Spleen: Normal in size and attenuation. Pancreas: Unremarkable. Adrenal glands: Unremarkable. Kidneys: The unenhanced kidneys are normal in size and without hydronephrosis. No renal calculi are identified and no ureteral stone is seen. There is no evidence of contour deforming renal mass lesion. There is nonspecific bilateral perinephric stranding. Abdominal vasculature: The abdominal aorta is normal in course and caliber. Bowel: The stomach is significantly distended and fluid-filled. The duodenum is normal in caliber, there is no evidence of high-grade bowel obstruction. The colon is relatively decompressed and appears diffusely thick walled. There is no significant surrounding inflammation. The appendix is not identified and reported surgically absent. Peritoneum: There is no intraperitoneal free air or abdominal ascites. There is a fat-containing umbilical hernia. Lymphadenopathy: None. Pelvic viscera: The bladder, prostate, and seminal vesicles are normal as imaged. Skeletal structures: No lytic or blastic lesions are seen. IMPRESSION: 1. The stomach is significantly distended and fluid-filled, as is the distal esophagus. The duodenum is normal in caliber as are the small bowel loops. Correlate clinically for evidence of gastric outlet obstruction. 2. The colon is relatively decompressed and appears circumferentially thick walled. Some this may be related to underdistention. Correlate clinically for evidence of a mild nonspecific colitis. 3. There is nonspecific perinephric stranding. Correlate with clinical findings and urinalysis. 4. Additional findings as above. ACT 112: Negative or not required by law. Electronically signed by: Aaron Gonzales M.D. 01/10/2024 11:56 AM Chest X-Ray 01/10/24 12:07 SINGLE VIEW CHEST CLINICAL HISTORY: Enteric tube placement. FINDINGS: An AP, portable, upright chest radiograph is compared to study performed earlier the same day 01/10/2024. An enteric tube has been placed. The tip projects just below the diaphragm, with the sideholes located above the diaphragm. The cardiomediastinal silhouette is unremarkable. The lungs and pleural spaces are clear. No pneumothorax is seen. The bony thorax is grossly intact. IMPRESSION: 1. An enteric tube has been placed as above. This should be advanced. 2. The lungs are clear. ACT 112: Negative or not required by law. Electronically signed by: Aaron Gonzales M.D. 01/10/2024 1:46 PM KUB X-Ray 01/10/24 13:23 XR KUB/Abdomen 1 view CLINICAL HISTORY: NG placement TECHNIQUE: 1 view of the abdomen was obtained. Comparison: None available at the time of this dictation. FINDINGS: Enteric tube side-port is above the diaphragm. The osseous structures are grossly unremarkable. Small stool burden is seen. IMPRESSION: Enteric tube side-port is above the diaphragm. It can be advanced approximately 7 cm for improved positioning. ACT 112: Negative or not required by law. Electronically signed by: Rush Mccormick M.D. 01/10/2024 1:33 PM PG Care Time/CCT Total # of Minutes Spent Total Time Spent with Patient: Total time spent is greater than 50% in coordination of care (as documented) at patient's floor/unit and/or counseling patient: Coding Level of Care Code 22791 IN/OBS CONSULT LVL 5,80M Diagnoses Gastric outlet obstruction K31.1 Nausea & vomiting R11.2
[2024-01-10] MEDS: POTASSIUM CHLORIDE / WTR 20 MEQ/100 ML PLCT IV ONE (16:27)
[2024-01-10] MEDS: PANTOprazole 40 MG/10 ML SYR IV SCH (16:28)
[2024-01-10] MEDS: LACTATED RINGER'S 1,000 ML IV SCH (16:38)
--- NOTE | 2024-01-10 16:39 | XRay Report ---
SUPINE AP CHEST RADIOGRAPH CLINICAL HISTORY: S/p central line COMPARISON STUDY: Chest radiograph January 10, 2024 at 1:21 PM. FINDINGS: There is no pneumothorax following placement of a right internal jugular central line. Tip projects over the distal SVC. Tip of nasogastric tube is within the body of the stomach. Upper medias tinal widening is likely due to supine technique. There is no consolidation to suggest pneumonia and there is no evidence for pulmonary edema. IMPRESSION: 1. No pneumothorax following placement of a right internal jugular central line. 2. Tip of nasogastric tube within the body of the stomach. 3. No consolidation to suggest pneumonia. ACT 112: Negative or not required by law. Electronically signed by: Josué Burnett M.D. 01/10/2024 4:38 PM
[2024-01-10] MEDS: POTASSIUM CHLORIDE / WTR 10 MEQ/100 ML PLCT IV ONE (16:43)
[2024-01-10 16:49] LABS: Adenovirus PCR Not Detected (NotDetected); Bordetella parapertussis PCR Not Detected (NotDetected); Bordetella pertussis PCR Not Detected (NotDetected); Chlamydia pneumoniae PCR Not Detected (NotDetected); Coronavirus 229E PCR Not Detected (NotDetected); Coronavirus CoV-2 (COVID19)PCR Not Detected (NotDetected); Coronavirus HKU1 PCR Not Detected (NotDetected); Coronavirus NL63 PCR Not Detected (NotDetected); Coronavirus OC43PCR Not Detected (NotDetected); Human Metapneumovirus PCR Not Detected (NotDetected); Influenza A PCR Not Detected (NotDetected); Influenza B PCR Not Detected (NotDetected); Mycoplasma pneumoniae PCR Not Detected (NotDetected); Parainfluenza Virus 1 PCR Not Detected (NotDetected); Parainfluenza Virus 2 PCR Not Detected (NotDetected); Parainfluenza Virus 3 PCR Not Detected (NotDetected); Parainfluenza Virus 4 PCR Not Detected (NotDetected); Respiratory Syncytial VirusPCR Not Detected (NotDetected); Rhinovirus/Enterovirus PCR Not Detected (NotDetected)
[2024-01-10 17:24] LABS: BUN Creatinine Ratio 5.1 (10-20); Calcium 5.1 mg/dl (8.6-10.3); Creatinine Clr Calc Pharmacy 9.2 ml/min; Magnesium 1.9 mg/dl (1.7-2.4); Phosphorus 7.8 mg/dl (2.5-4.9); Potassium 2.5 mmol/L (3.5-5.1)
--- NOTE | 2024-01-10 17:27 | Nephrology Consultation ---
Date of Consultation January 10, 2024 Assessment & Plan (1) RODRIGO (acute kidney injury): Oliguric. RODRIGO consistent with prerenal physiology + ATN. UA 2+ protein, few RBCs + hyaline cast. CT demonstrates the kidneys to be unobstructed. Jenkins placed with minimal UOP. Plan of care was discussed with the feeder loader and the patient's . Risks benefits of HD reviewed with Cameron and his . He unfortunately remains oliguric despite aggressive fluid resuscitation. Significant metabolic acidosis + hypokalemia persist. Orders for emergent HD tonight have been placed into the EHR and reviewed with the automotive manager. Medications are appropriately dosed for kidney function. Rosuvastatin, metformin, and semaglutide held. Continue aggressive IV replacement with balanced isotonic fluids. Repeat a metabolic profile this evening post HD. (2) Hypokalemia: Attributed to GI losses and metabolic acidosis. IV replacement provided. HD on 3 K bath with additional IV replacement. Repeat labs this evening. (3) Lactic acidosis: Metformin has been held. HD coordinated. 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 Baseline creatinine 1.1 mg/dL in July 2023. MACR ~300 mcg/mg. (6) DM2 (diabetes mellitus, type 2): Metformin and semaglutide held. History of Present Illness Reason for Consultation: RODRIGO with Cr of 11 in setting of Ozempic. Requesting Physician: Elissa Harris MD Attending Physician: Elissa Harris MD History of Present Illness Cameron is a 48 year-old male with diabetes mellitus II, hyperlipidemia, GERD, opioid dependence who presented to the ER at [facility] today with mental status changes, weakness, and several days of nausea and vomiting. He was seen and evaluated in the ICU this afternoon. Cameron is encephalopathic an somnolent. History was assisted by his and daughter. Nausea and vomiting have been ongoing for ~5 days. No reported fevers or chills. No recent changes in medication. He has been eating very little. He has thrown up medications. 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 His reports some muscle fasciculations/twitching within the past few days. No reported change in urine output. No diarrhea. Cameron took a single dose of Advil yesterday but otherwise no significant NSAID use. He has been on Ozempic for several years but the medication was held and restarted several months ago. He has had occasional symptoms of gastroparesis but not sustained nausea and vomiting with the medication in the past. HE has been maintained on metformin for several years. He denies any prior history of kidney disease. He was admitted to the ICU with imaging demonstrating concerning features of gastroparesis vs SBO and severe electrolyte abnormalities, including metabolic acidosis and hypokalemia. Blood pressure acceptable following aggressive administration of IVFs. Notable kidney dysfunction with creatinine >10 mg/dL. Minimal urine output following administration of 3 L IVF. Allergies Allergy/AdvReac Type Severity Reaction Status Date / Time naloxone AdvReac Mild nauseaous Verified 07/26/23 07:36 and drowsy Home Medications Medication Instructions Recorded Confirmed Type blood sugar diagnostic (OneTouch #100 ea 12/17/19 07/26/23 Rx Ultra Blue Test Strip) blood-glucose meter (OneTouch #1 ea 12/17/19 07/26/23 Rx Ultra2 Meter) buprenorphine HCl 8 mg sublingual 8 mg sublingual UD 06/06/20 01/10/24 History tablet pantoprazole 40 mg tablet,delayed 40 mg PO QAM #90 tabs 08/26/23 01/10/24 Rx release rosuvastatin 40 mg tablet 40 mg PO QAM #90 tabs 08/26/23 01/10/24 Rx metformin 500 mg tablet,extended 1,000 mg (2 x 500 mg) PO BID #360 10/16/23 01/10/24 Rx release 24 hr tabs semaglutide 0.25 mg or 0.5 mg (2 0.5 mg (0.736 mL) subcut .weekly 01/02/24 01/10/24 Rx mg/3 mL) subcutaneous pen injector #3 mL (Ozempic) Patient History Medical History Restless leg syndrome Migraine occasional History of alcohol abuse Surgical History History of colonoscopy History of esophagogastroduodenoscopy (EGD) H/O wisdom tooth extraction S/P hardware removal right hand History of open reduction and internal fixation (ORIF) procedure right hand Hx of appendectomy Family History Father Brain tumor Mental disorder Grandfather (Paternal) Coronary heart disease Type 2 diabetes mellitus Mother Mental disorder Grandfather (Maternal) Type 2 diabetes mellitus Denies family history of Ovarian cancer Prostate cancer Myocardial infarction Breast cancer Colorectal cancer Social History Smoking Status: Former smoker Tobacco Type: Smokeless Tobacco (Dip or Chew) Second Hand Exposure: Yes (as a child); Do You Dip or Chew Tobacco: Yes; Hx Alcohol Use: No ((hx heavy alcohol use) quit in 2015) Hx Substance Use: No (hx of misuse of RX (per pcp notes)) Preferred Language: Amharic Communication Ability: Effective Visual Impairment: No Limitations Hearing Ability: Normal Bottle Selector Required: No Beliefs That Will Affect Care: None marital status: Current Living Situation: Family current occupational status: employed 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 caffeine: Yes (Soda 1 can per day. ) during the past year weight has: remained stable Dental Care, Regularly: No Physical Activity Frequency: 5-6 Times per Week Seatbelt Use: always Sunscreen Use: Yes Assistive Devices: None Review of Systems Review of Systems: All systems reviewed & are unremarkable except as noted in HPI & below and Unobtainable due to cognitive status (limited due to somnolence and encephalopathy) Physical Exam Constitutional: + ill appearing and + altered mental sta tus Eyes: + anicteric sclerae and + pinpoint pupil s ENMT: Mouth: + lip abnormality (cracked and caked with dry blood) and + dry oral mucous membranes Neck: normal visual inspection and trachea midline Respiratory: + tachypneic; no respiratory distress Auscultation: lungs clear to auscultation bilaterally (anteriorly) Cardiovascular: Rate/Rhythm: regular rate Vessels: no JVD Extremities: no edema Musculoskeletal: Extremities: no cyanosis and no clubbing Skin: no rashes, warm and dry Neurologic: Speech / Cognition: + abnormal cognition (somnolent/slow response) Motor/Sensory: + fasciculations and + asterixis Psychiatric: Orientation: alert; + not oriented x 3 Genitourinary: Jenkins with minimal urine Results & Data Vital Signs (Past 12 Hours) Vital Signs Temp Pulse Pulse Resp BP BP Pulse Ox 01/10/24 16:52 01/10/24 16:51 36.6 C 87 15 01/10/24 16:33 83 21 98 01/10/24 16:18 83 19 99 01/10/24 16:15 108/52 L 01/10/24 16:15 108/52 L 01/10/24 16:15 108/52 L 01/10/24 15:51 88 20 100 01/10/24 15:03 87 17 114/62 100 01/10/24 13:57 91 H 23 119/61 01/10/24 13:00 89 18 113/53 L 01/10/24 12:24 91 H 13 122/60 100 01/10/24 12:10 93 H 01/10/24 12:07 91 H 14 118/64 100 01/10/24 12:07 100 01/10/24 11:54 90 19 118/64 100 01/10/24 11:03 109/63 01/10/24 10:54 85 16 109/63 100 01/10/24 10:10 36.0 C L 89 20 111/70 99 O2 Del Method O2 Del Method 01/10/24 16:52 Room Air 01/10/24 16:51 01/10/24 16:33 01/10/24 16:18 01/10/24 16:15 01/10/24 16:15 01/10/24 16:15 01/10/24 15:51 01/10/24 15:03 01/10/24 13:57 01/10/24 13:00 01/10/24 12:24 01/10/24 12:10 01/10/24 12:07 Room Air 01/10/24 12:07 Room Air 01/10/24 11:54 01/10/24 11:03 01/10/24 10:54 01/10/24 10:10 Laboratory Results Laboratory Results - last 24 hr 01/10/24 01/10/24 01/10/24 10:19 10:35 11:54 WBC 16.76 H RBC 4.07 L Hgb 10.7 L POC Hgb Hct 32.2 L POC Hct MCV 79.1 L MCH 26.3 MCHC 33.2 RDW Std Deviation 40.6 RDW Coeff of Parveen 14.4 Plt Count 392 MPV 10.2 Immature Gran % (Auto) 1.1 Neut % (Auto) 79.0 Lymph % (Auto) 13.6 [place] % (Auto) 6.1 Eos % (Auto) 0.0 Baso % (Auto) 0.2 Neut # (Auto) 13.23 H Lymph # (Auto) 2.28 [place] # (Auto) 1.03 H Eos # (Auto) 0.00 Baso # (Auto) 0.04 Immature Gran # (Auto) 0.18 Specimen Type POC pH POC pCO2 POC pO2 POC HCO3 POC Total CO2 POC Base Excess POC ABG O2 Sat VBG pH VBG pCO2 VBG pO2 VBG HCO3 VBG O2 Saturation VBG Base Excess POC Sodium Sodium 141 143 POC Potassium Potassium 2.5 L* 2.7 L Chloride 79 L 82 L Carbon Dioxide 9 L* 9 L* Anion Gap 53 H 52 H BUN 52 H 53 H Creatinine 11.34 H* 10.92 H* D Est Cr Clr Drug Dosing 8.3 8.6 eGFR 5.10 5.34 BUN/Creatinine Ratio 4.6 L 4.9 L Glucose 308 H* 260 H POC Glucose 297 H Osmolality Lactate 11.9 H* Calcium 5.5 L* 5.4 L* Phosphorus Magnesium 1.0 L Total Bilirubin 0.6 AST 30 ALT 20 Alkaline Phosphatase 65 Ammonia Troponin I High Sens 65.3 H* 61.8 H* Total Protein 7.3 Albumin 4.4 Globulin 2.9 Albumin/Globulin Ratio 1.5 Urine Color Urine Appearance Urine pH Ur Specific [place] Urine Protein Urine Glucose (UA) Urine Ketones Urine Blood Urine Nitrite Urine Bilirubin Urine Urobilinogen Ur Leukocyte Esterase Urine WBC (Auto) Urine RBC (Auto) U Hyaline Cast (Auto) U Epithel Cells (Auto) Urine Bacteria (Auto) Ur Random Creatinine Ur Random Sodium Nasal Screen MRSA (PCR) Salicylates Urine Opiates Screen Ur Methadone, Qual Urine Fentanyl Screen Acetaminophen Urine Barbiturates Ur Phencyclidine (PCP) U Amphetamines Confirm U Amphetamin/Meth Scrn U Methamphetamin Confrm MDMA (Ecstasy) Screen U Benzodiazepines Scrn Ur Cocaine Metabolite U Marijuana (THC) Screen Drug Screen Comment Adenovirus (PCR) B. pertussis DNA (PCR) B.parapertussis DNA PCR C. pneumoniae DNA (PCR) Coronavirus OC43 (PCR) Coronavirus HKU1 (PCR) Coronavirus 229E (PCR) SARS-CoV-2 (PCR) Coronavirus NL63 (PCR) Human Metapneumovir PCR Influenza Type A (PCR) Influenza Type B (PCR) M. pneumoniae (PCR) Parainfluenza 1 (PCR) Parainfluenza 2 (PCR) Parainfluenza 3 (PCR) Parainfluenza 4 (PCR) RSV (PCR) Entero/Rhino (PCR) 01/10/24 01/10/24 01/10/24 13:25 14:18 14:20 WBC 16.46 H RBC 3.59 L Hgb 9.4 L POC Hgb Hct 28.3 L POC Hct MCV 78.8 L MCH 26.2 MCHC 33.2 RDW Std Deviation 40.6 RDW Coeff of Parveen 14.5 Plt Count 333 MPV 10.3 Immature Gran % (Auto) 1.0 Neut % (Auto) 81.2 Lymph % (Auto) 10.8 [place] % (Auto) 6.8 Eos % (Auto) 0.0 Baso % (Auto) 0.2 Neut # (Auto) 13.38 H Lymph # (Auto) 1.77 [place] # (Auto) 1.12 H Eos # (Auto) 0.00 Baso # (Auto) 0.03 Immature Gran # (Auto) 0.16 Specimen Type POC pH POC pCO2 POC pO2 POC HCO3 POC Total CO2 POC Base Excess POC ABG O2 Sat VBG pH 7.20 L VBG pCO2 26 L VBG pO2 41 VBG HCO3 10 VBG O2 Saturation < 60.0 VBG Base Excess -16.2 POC Sodium Sodium 141 POC Potassium Potassium 2.5 L* Chloride 87 L Carbon Dioxide 10 L Anion Gap 44 H BUN 53 H Creatinine 10.50 H* D Est Cr Clr Drug Dosing 9.0 eGFR 5.59 BUN/Creatinine Ratio 5.0 L Glucose 286 H POC Glucose 300 H Osmolality 319 H Lactate 9.7 H* Calcium 5.0 L* Phosphorus 10.2 H Magnesium Total Bilirubin AST ALT Alkaline Phosphatase Ammonia Troponin I High Sens 70.0 H* Total Protein Albumin Globulin Albumin/Globulin Ratio Urine Color Yellow Urine Appearance Clear Urine pH 5.5 Ur Specific [place] 1.012 Urine Protein 2+ H Urine Glucose (UA) Negative Urine Ketones 2+ H Urine Blood 3+ H Urine Nitrite Negative Urine Bilirubin Negative Urine Urobilinogen Negative Ur Leukocyte Esterase Negative Urine WBC (Auto) 0-5 Urine RBC (Auto) 6-10 H U Hyaline Cast (Auto) 3-5 H U Epithel Cells (Auto) 0-2 Urine Bacteria (Auto) None Seen Ur Random Creatinine 55.2 Ur Random Sodium 103 Nasal Screen MRSA (PCR) Salicylates < 3.0 L Urine Opiates Screen Neg Ur Methadone, Qual Neg Urine Fentanyl Screen Neg Acetaminophen < 3 L Urine Barbiturates Neg Ur Phencyclidine (PCP) Neg U Amphetamines Confirm Pending U Amphetamin/Meth Scrn Pos H U Methamphetamin Confrm Pending MDMA (Ecstasy) Screen Neg U Benzodiazepines Scrn Neg Ur Cocaine Metabolite Neg U Marijuana (THC) Screen Neg Drug Screen Comment Pending Adenovirus (PCR) B. pertussis DNA (PCR) B.parapertussis DNA PCR C. pneumoniae DNA (PCR) Coronavirus OC43 (PCR) Coronavirus HKU1 (PCR) Coronavirus 229E (PCR) SARS-CoV-2 (PCR) Coronavirus NL63 (PCR) Human Metapneumovir PCR Influenza Type A (PCR) Influenza Type B (PCR) M. pneumoniae (PCR) Parainfluenza 1 (PCR) Parainfluenza 2 (PCR) Parainfluenza 3 (PCR) Parainfluenza 4 (PCR) RSV (PCR) Entero/Rhino (PCR) 01/10/24 01/10/24 01/10/24 15:00 15:25 15:48 WBC RBC Hgb POC Hgb 9.2 L Hct POC Hct 27 L MCV MCH MCHC RDW Std Deviation RDW Coeff of Parveen Plt Count MPV Immature Gran % (Auto) Neut % (Auto) Lymph % (Auto) [place] % (Auto) Eos % (Auto) Baso % (Auto) Neut # (Auto) Lymph # (Auto) [place] # (Auto) Eos # (Auto) Baso # (Auto) Immature Gran # (Auto) Specimen Type Arterial POC pH 7.29 L POC pCO2 21 L POC pO2 113 H POC HCO3 10 L POC Total CO2 11 L POC Base Excess -17.0 L POC ABG O2 Sat 98.0 H VBG pH VBG pCO2 VBG pO2 VBG HCO3 VBG O2 Saturation VBG Base Excess POC Sodium 134 L Sodium POC Potassium 2.2 L* Potassium Chloride Carbon Dioxide Anion Gap BUN Creatinine Est Cr Clr Drug Dosing eGFR BUN/Creatinine Ratio Glucose POC Glucose Osmolality Lactate Calcium Phosphorus Magnesium Total Bilirubin AST ALT Alkaline Phosphatase Ammonia 57.0 Troponin I High Sens Total Protein Albumin Globulin Albumin/Globulin Ratio Urine Color Urine Appearance Urine pH Ur Specific [place] Urine Protein Urine Glucose (UA) Urine Ketones Urine Blood Urine Nitrite Urine Bilirubin Urine Urobilinogen Ur Leukocyte Esterase Urine WBC (Auto) Urine RBC (Auto) U Hyaline Cast (Auto) U Epithel Cells (Auto) Urine Bacteria (Auto) Ur Random Creatinine Ur Random Sodium Nasal Screen MRSA (PCR) Salicylates Urine Opiates Screen Ur Methadone, Qual Urine Fentanyl Screen Acetaminophen Urine Barbiturates Ur Phencyclidine (PCP) U Amphetamines Confirm U Amphetamin/Meth Scrn U Methamphetamin Confrm MDMA (Ecstasy) Screen U Benzodiazepines Scrn Ur Cocaine Metabolite U Marijuana (THC) Screen Drug Screen Comment Adenovirus (PCR) Not Detected B. pertussis DNA (PCR) Not Detected B.parapertussis DNA PCR Not Detected C. pneumoniae DNA (PCR) Not Detected Coronavirus OC43 (PCR) Not Detected Coronavirus HKU1 (PCR) Not Detected Coronavirus 229E (PCR) Not Detected SARS-CoV-2 (PCR) Not Detected Coronavirus NL63 (PCR) Not Detected Human Metapneumovir PCR Not Detected Influenza Type A (PCR) Not Detected Influenza Type B (PCR) Not Detected M. pneumoniae (PCR) Not Detected Parainfluenza 1 (PCR) Not Detected Parainfluenza 2 (PCR) Not Detected Parainfluenza 3 (PCR) Not Detected Parainfluenza 4 (PCR) Not Detected RSV (PCR) Not Detected Entero/Rhino (PCR) Not Detected 01/10/24 01/10/24 01/10/24 16:06 16:32 16:42 WBC RBC Hgb POC Hgb Hct POC Hct MCV MCH MCHC RDW Std Deviation RDW Coeff of Parveen Plt Count MPV Immature Gran % (Auto) Neut % (Auto) Lymph % (Auto) [place] % (Auto) Eos % (Auto) Baso % (Auto) Neut # (Auto) Lymph # (Auto) [place] # (Auto) Eos # (Auto) Baso # (Auto) Immature Gran # (Auto) Specimen Type POC pH POC pCO2 POC pO2 POC HCO3 POC Total CO2 POC Base Excess POC ABG O2 Sat VBG pH VBG pCO2 VBG pO2 VBG HCO3 VBG O2 Saturation VBG Base Excess POC Sodium Sodium 139 POC Potassium Potassium 2.5 L* Chloride 90 L Carbon Dioxide 13 L Anion Gap 36 H BUN 52 H Creatinine 10.17 H* D Est Cr Clr Drug Dosing 9.2 eGFR 5.81 BUN/Creatinine Ratio 5.1 L Glucose 225 H POC Glucose 230 H Osmolality Lactate Calcium 5.1 L* Phosphorus 7.8 H Magnesium 1.9 Total Bilirubin AST ALT Alkaline Phosphatase Ammonia Troponin I High Sens Total Protein Albumin Globulin Albumin/Globulin Ratio Urine Color Urine Appearance Urine pH Ur Specific [place] Urine Protein Urine Glucose (UA) Urine Ketones Urine Blood Urine Nitrite Urine Bilirubin Urine Urobilinogen Ur Leukocyte Esterase Urine WBC (Auto) Urine RBC (Auto) U Hyaline Cast (Auto) U Epithel Cells (Auto) Urine Bacteria (Auto) Ur Random Creatinine Ur Random Sodium Nasal Screen MRSA (PCR) Pending Salicylates Urine Opiates Screen Ur Methadone, Qual Urine Fentanyl Screen Acetaminophen Urine Barbiturates Ur Phencyclidine (PCP) U Amphetamines Confirm U Amphetamin/Meth Scrn U Methamphetamin Confrm MDMA (Ecstasy) Screen U Benzodiazepines Scrn Ur Cocaine Metabolite U Marijuana (THC) Screen Drug Screen Comment Adenovirus (PCR) B. pertussis DNA (PCR) B.parapertussis DNA PCR C. pneumoniae DNA (PCR) Coronavirus OC43 (PCR) Coronavirus HKU1 (PCR) Coronavirus 229E (PCR) SARS-CoV-2 (PCR) Coronavirus NL63 (PCR) Human Metapneumovir PCR Influenza Type A (PCR) Influenza Type B (PCR) M. pneumoniae (PCR) Parainfluenza 1 (PCR) Parainfluenza 2 (PCR) Parainfluenza 3 (PCR) Parainfluenza 4 (PCR) RSV (PCR) Entero/Rhino (PCR) Diagnostic Findings CT SCAN OF THE ABDOMEN AND PELVIS WITHOUT IV CONTRAST COMPARISON STUDY: Abdominal x-ray dated 01/10/2024. FINDINGS: Lung bases: The heart is normal in size and without pericardial effusion. The lung bases are clear. The distal esophagus is mildly distended and filled with fluid. Liver: The unenhanced liver is normal in size, contour, and attenuation. There is no intrahepatic biliary ductal dilatation. Gallbladder: Unremarkable. Spleen: Normal in size and attenuation. Pancreas: Unremarkable. Adrenal glands: Unremarkable. Kidneys: The unenhanced kidneys are normal in size and without hydronephrosis. No renal calculi are identified and no ureteral stone is seen. There is no evidence of contour deforming renal mass lesion. There is nonspecific bilateral perinephric stranding. Abdominal vasculature: The abdominal aorta is normal in course and caliber. Bowel: The stomach is significantly distended and fluid-filled. The duodenum is normal in caliber, there is no evidence of high-grade bowel obstruction. The colon is relatively decompressed and appears diffusely thick walled. There is no significant surrounding inflammation. The appendix is not identified and reported surgically absent. Peritoneum: There is no intraperitoneal free air or abdominal ascites. There is a fat-containing umbilical hernia. Lymphadenopathy: None. Pelvic viscera: The bladder, prostate, and seminal vesicles are normal as imaged. Skeletal structures: No lytic or blastic lesions are seen. IMPRESSION: 1. The stomach is significantly distended and fluid-filled, as is the distal esophagus. The duodenum is normal in caliber as are the small bowel loops. Correlate clinically for evidence of gastric outlet obstruction. 2. The colon is relatively decompressed and appears circumferentially thick walled. Some this may be related to underdistention. Correlate clinically for evidence of a mild nonspecific colitis. 3. There is nonspecific perinephric stranding. Correlate with clinical findings and urinalysis. PG Care Time/CCT Total # of Minutes Spent Total Time Spent with Patient: Total time spent is greater than 50% in coordination of care (as documented) at patient's floor/unit and/or counseling patient: Coding Level of Care Code 38519 IN/OBS CONSULT LVL 5,80M Diagnoses RODRIGO (acute kidney injury) N17.9 Hypokalemia E87.6 Lactic acidosis E87.20 Electrolyte and fluid disorder E87.8 Diabetic nephropathy associated with type 2 diabetes mellitus E11.21 Diabetes mellitus type: type 2 DM2 (diabetes mellitus, type 2) E11.9 (5) Diabetic nephropathy Diabetes mellitus type: type 2 Qualified Code(s): E11.21 - Type 2 diabetes mellitus with diabetic nephropathy
[2024-01-10] MEDS: POTASSIUM CHLORIDE / WTR 20 MEQ/100 ML PLCT IV SCH (18:07)
--- NOTE | 2024-01-10 18:36 | XRay Report ---
PORTABLE SUPINE AP CHEST RADIOGRAPH CLINICAL HISTORY: s/p dialysis cath COMPARISON STUDY: Chest radiograph January 10, 2024 at 4:23 PM. FINDINGS: No pneumothorax is identified following placement of the left internal jugular venous dialy sis catheter. Catheter tip projects over the distal left brachiocephalic vein/SVC. Right internal jug ular central line and nasogastric tube remain in place. There is no consolidation or evidence for pul monary edema. Cardiomediastinal silhouette is stable on this supine exam. Upper mediastinal widening is unchanged. IMPRESSION: 1. No pneumothorax following placement of a left internal jugular venous dialysis catheter. Catheter tip projects over the distal left brachiocephalic vein/SVC. 2. Otherwise, no change in appearance of the chest. Stable upper mediastinal widening, likely due to supine technique. ACT 112: Negative or not required by law. Electronically signed by: Josué Burnett M.D. 01/10/2024 6:35 PM
[2024-01-10 18:51] LABS: BUN Creatinine Ratio 5.2 (10-20); Calcium 5.1 mg/dl (8.6-10.3); Creatinine Clr Calc Pharmacy 9.1 ml/min; Magnesium 2.1 mg/dl (1.7-2.4); Potassium 2.5 mmol/L (3.5-5.1)
--- NOTE | 2024-01-10 18:59 | Procedure Note ---
Procedure Note Date of Service January 10, 2024 INTERNAL JUGULAR CENTRAL LINE PROCEDURE NOTE: Procedure: Internal Jugular Central Line Placement Indication: Central Drug Administration, Poor Venous Access, Multiple Lab Draws Necessary, etc. Anesthesia: None/8 mL lidocaine 1% Consent was signed by the patient's to the patient's encephalopathy and placed on the chart prior to procedure. Indication, risks, and benefits were explained at length. A time-out was completed verifying correct patient, procedure, site, positioning, and implants(s) or special equipment if applicable. Patients right neck was cleansed and draped in the typical sterile fashion using Chloraprep. The Internal Jugular Vein and Carotid Artery were identified using ultrasound. The superficial tissue was anesthetized using 8 mL of 1% lidocaine without epinephrine under direct visualization with the ultrasound. After adequate anesthetization was achieved, the Internal Jugular vein was cannulated under direct ultrasound guidance using an introducer needle on a syringe. Good venous blood return was maintained prior to removal of syringe from introducer needle. Using Seldinger Technique, a guide wire was advanced through the introducer needle without resistance. The introducer needle was removed and ultrasound images were obtained of the guide wire within the Internal Jugular Vein and saved to the patients medical record. A small incision was made in penetrating fashion at the guide wire insertion site utilizing an 11 blade scalpel. The dilator was advanced to the vessel without resistance. The dilator was exchanged for the triple lumen catheter which was advanced into the vessel without resistance. The guide wire was removed intact from the catheter without issue. Claves were placed on each catheter tip with confirmation of good blood flow from each lumen. Each port was easily flushed with sterile saline. The catheter was placed at 16 cm and sutured in place. BioPatch was applied to the catheter and a sterile Tegaderm dressing was applied over the catheter with careful attention to sterility. Patient tolerated procedure well. No immediate complications were met. Post procedure x-ray was completed, placement was appropriate and no pneumothorax was noted. [facility] Procedure Codes (Charges) Tubes, Drains, and Vasc Access Procedure 1: Tubes, Drains, and Vasc Access: [id number] Place catheter in vein superior or inferior vena cava Procedure 2: Tubes, Drains, and Vasc Access: [id number] Ultrasound Guidance For Vascular Coding CPT Codes Tubes, Drains, and Vasc Access - Tubes, Drains, and Vasc Access: [id number] Place catheter in vein superior or inferior vena cava ([id number]) Tubes, Drains, and Vasc Access - Tubes, Drains, and Vasc Access: [id number] Ultrasound Guidance For Vascular ([id number]) Additional Codes Date of Service ([email or web address])
--- NOTE | 2024-01-10 19:01 | Procedure Note ---
Procedure Note Date of Service January 10, 2024 Temporary left IJ hemodialysis catheter Indication: Acute hemodialysis Anesthesia: None/8 lidocaine 1% Consent was signed by the patient's due to uremic encephalopathy and placed on the chart prior to procedure. Indication, risks, and benefits were explained at length. A time-out was completed verifying correct patient, procedure, site, positioning, and implants(s) or special equipment if applicable. Patients left neck was cleansed and draped in the typical sterile fashion using Chloraprep. The Internal Jugular Vein and Carotid Artery were identified using ultrasound. The superficial tissue was anesthetized using 8 mL of 1% lidocaine without epin ephrine under direct visualization with the ultrasound. After adequate anesthetization was achieved, the Internal Jugular vein was cannulated under direct ultrasound guidance using an introducer needle on a syringe. Good venous blood return was maintained prior to removal of syringe from introducer needle. Using Seldinger Technique, a guide wire was advanced through the introducer needle without resistance. The introducer needle was removed and ultrasound images were obtained of the guide wire within the Internal Jugular Vein and saved to the patients medical record. A small incision was made in penetrating fashion at the guide wire insertion site utilizing an 11 blade scalpel. The dilator was advanced to the vessel without resistance. The dilator was exchanged for the triple lumen catheter which was advanced into the vessel without resistance. The guide wire was removed intact from the catheter without issue. Claves were placed on each catheter tip with confirmation of good blood flow from each lumen. Each port was easily flushed with sterile saline. The catheter was placed at 16 cm and sutured in place. BioPatch was applied to the catheter and a sterile Tegaderm dressing was applied over the catheter with careful attention to sterility. Patient tolerated procedure well. No immediate complications were met. Post procedure x-ray was completed, placement was noted to be in the proximal innominate vein. [facility] Procedure Codes (Charges) Tubes, Drains, and Vasc Access Procedure 1: Tubes, Drains, and Vasc Access: [id number] Place catheter in vein superior or inferior vena cava Procedure 2: Tubes, Drains, and Vasc Access: [id number] Ultrasound Guidance For Vascular Coding CPT Codes Tubes, Drains, and Vasc Access - Tubes, Drains, and Vasc Access: [id number] Place catheter in vein superior or inferior vena cava ([id number]) Tubes, Drains, and Vasc Access - Tubes, Drains, and Vasc Access: [id number] Ultrasound Guidance For Vascular ([id number]) Additional Codes Date of Service (PG.SURGERY)
--- NOTE | 2024-01-10 19:12 | Critical Care Consultation ---
Date of Consultation January 10, 2024 Assessment & Plan (1) Lactic acidosis: (2) Gastric outlet obstruction: (3) Nausea & vomiting: (4) Opiate dependence: (5) RODRIGO (acute kidney injury): (6) Hypokalemia due to excessive gastrointestinal loss of potassium: (7) Hypomagnesemia: Plan 48-year-old male with a history of diabetic mellitus type II, opiate abuse, depression anxiety who presented to the hospital with severe nausea and vomiting found to have gastric outlet obstruction, severe lactic acidosis, severe RODRIGO and severe electrolyte derangements Neurologic: Delirium secondary to uremia. This should improve with dialysis. Avoid sedating medications. Pulmonary: O2 requirements minimal at this time. Cardiovascular: No significant hemodynamic issues. Monitor telemetry closely given electrolyte derangements. Gastrointestinal: Continue NG tube to low intermittent wall suction. Suspect patient with gastroparesis secondary to Ozempic and diabetes mellitus. BioFire was negative for viral illness. Lipase unremarkable. Monitor LFTs. Appreciate GI input. Renal: Severe lactic acidosis secondary to likely profound hypovolemia and metformin use. Discussed extensively with patient's and nephrology. Hemodialysis catheter placed in the left IJ and hemodialysis started. Check BMP every 2 hours. Replace electrolytes aggressively. Right IJ central line placed to assist with electrolyte replacement. Patient received 2 L of crystalloids in the ER and I have given an additional 4 L of fluid. IVC is now mildly dilated. Will hold on further fluid resuscitation at this time. Follow VBG's due to acidosis. Infectious disease: Zosyn initiated due to possible infectious colitis and severe lactic acidosis. Hematologic: Patient with mild anemia at baseline and now with evidence of hemodilution. Check daily CBC and monitor for signs of active bleeding. SCDs for DVT prophylaxis for the time being. Endocrine: Patient with evidence of mild DKA on admission. Start insulin once potassium above 3.3. Lines and tubes: Right IJ triple-lumen placed by ar 01/10/2024 left double-lumen dialysis catheter placed 01/10/2024. VTE prophylaxis: SCDs CODE STATUS: Full Family at bedside: Daughter and updated Disposition: ICU I have personally spent 82 minutes of critical care time in the direct management of this patient. This is a life/limb threatening event. This includes time spent evaluating patient, direct bedside care, chart review, placing orders, interpretation of diagnostic studies, discussion with consultants, patient, and family members, as well as other required patient management activities. This time is exclusive of all separately billable procedures, and teaching time and separate from and in addition to any other critical care service time. Thank you for allowing us to participate in the care of this patient. History of Present Illness Reason for Consultation: Acute renal failure, acute acidosis and uremia History of Present Illness 48-year-old male with a past medical history of diabetes mellitus on metformin and Ozempic who presented to the hospital due to severe altered mental status and worsening shortness of breath. History is limited from the patient given encephalopathy. Collateral history is obtained from the chart, discussion with the bedside nursing and discussed her with the patient's who is an [employer]VIS[employer]. She reports that over the last 5 days he has had continuous nausea and vomiting and has not been able to take any of his medications. She notes that today he was having very significant shortness of breath with minimal exertion and ultimately he came to the ER due to the symptoms. In the ER he was found to have a profound lactic acidosis, uremia, severe acute kidney injury and severe electrolyte derangements. Allergies Allergy/AdvReac Type Severity Reaction Status Date / Time naloxone AdvReac Mild nauseaous Verified 07/26/23 07:36 and drowsy Home Medications Medication Instructions Recorded Confirmed Type blood sugar diagnostic (OneTouch #100 ea 12/17/19 07/26/23 Rx Ultra Blue Test Strip) blood-glucose meter (OneTouch #1 ea 12/17/19 07/26/23 Rx Ultra2 Meter) buprenorphine HCl 8 mg sublingual 8 mg sublingual UD 06/06/20 01/10/24 History tablet pantoprazole 40 mg tablet,delayed 40 mg PO QAM #90 tabs 08/26/23 01/10/24 Rx release rosuvastatin 40 mg tablet 40 mg PO QAM #90 tabs 08/26/23 01/10/24 Rx metformin 500 mg tablet,extended 1,000 mg (2 x 500 mg) PO BID #360 10/16/23 01/10/24 Rx release 24 hr tabs semaglutide 0.25 mg or 0.5 mg (2 0.5 mg (0.736 mL) subcut .weekly 01/02/24 01/10/24 Rx mg/3 mL) subcutaneous pen injector #3 mL (Ozempic) Patient History Medical History Restless leg syndrome Migraine occasional History of alcohol abuse Surgical History History of colonoscopy History of esophagogastroduodenoscopy (EGD) H/O wisdom tooth extraction S/P hardware removal right hand History of open reduction and internal fixation (ORIF) procedure right hand Hx of appendectomy Family History Father Brain tumor Mental disorder Grandfather (Paternal) Coronary heart disease Type 2 diabetes mellitus Mother Mental disorder Grandfather (Maternal) Type 2 diabetes mellitus Denies family history of Ovarian cancer Prostate cancer Myocardial infarction Breast cancer Colorectal cancer Social History Smoking Status: Former smoker Tobacco Type: Cigarettes and Smokeless Tobacco (Dip or Chew) Second Hand Exposure: Yes; Do You Dip or Chew Tobacco: Yes; Tobacco Cessation Education Requested by Patient: No Hx Alcohol Use: No Hx Substance Use: No Preferred Language: Japanese Communication Ability: Effective Visual Impairment: No Limitations Hearing Ability: Normal Digital Campaign Specialist Required: No Beliefs That Will Affect Care: None marital status: Current Living Situation: Spouse current occupational status: employed 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 caffeine: Yes (Soda 1 can per day. ) during the past year weight has: remained stable Dental Care, Regularly: No Physical Activity Frequency: 5-6 Times per Week Seatbelt Use: always Sunscreen Use: Yes Assistive Devices: None Review of Systems Review of Systems: Unobtainable due to cognitive status Physical Exam Physical Exam: Constitutional: Patient appears to be of their stated age. Patient in severe distress. Eyes: Pupils are equal round and reactive to light. Conjunctivae are normal. Anicteric sclera. Ears nose, mouth and throat: Mallampati class 2. Normal posterior oropharynx. Uvula is midline. Neck: Trachea is midline. Visual inspection is normal. Respiratory: Clear to auscultation bilaterally. Severe tachypnea. Cardiovascular: Regular rate and rhythm. No murmurs. No edema. Gastrointestinal: Normal bowel sounds, soft, nontender and nondistended. No hepatosplenomegaly noted. Musculoskeletal: No cyanosis. Patient is able to move all extremities. Strength is 5 out of 5 in the upper and lower extremities. Skin: No rashes, warm dry and intact. Neurologic: No obvious focal neurological deficits seen. Frequent myoclonic jerking activity Psychiatric: Alert and oriented x1 Results & Data Results & Data Vital Signs (Past 12 Hours) Vital Signs Temp Pulse Pulse Resp BP BP Pulse Ox 01/10/24 15:03 87 17 114/62 100 01/10/24 13:57 91 H 23 119/61 01/10/24 13:00 89 18 113/53 L 01/10/24 12:24 91 H 13 122/60 100 01/10/24 12:10 93 H 01/10/24 12:07 91 H 14 118/64 100 01/10/24 12:07 100 01/10/24 11:54 90 19 118/64 100 01/10/24 11:03 109/63 01/10/24 10:54 85 16 109/63 100 01/10/24 10:10 36.0 C L 89 20 111/70 99 O2 Del Method 01/10/24 15:03 01/10/24 13:57 01/10/24 13:00 01/10/24 12:24 01/10/24 12:10 01/10/24 12:07 Room Air 01/10/24 12:07 Room Air 01/10/24 11:54 01/10/24 11:03 01/10/24 10:54 01/10/24 10:10 Coding Level of Care Code 99960 Prolonged Care (int'l) Diagnoses Lactic acidosis E87.20 Gastric outlet obstruction K31.1 Nausea & vomiting R11.2 Opiate dependence F11.20 RODRIGO (acute kidney injury) N17.9 Hypokalemia due to excessive gastrointestinal loss of potassium E87.6 Hypomagnesemia E83.42
[2024-01-10] MEDS: BENZOCAINE/TETRACAIN/BUTAM 50 APPLN/5 GM CAN EXT STA (19:29)
[2024-01-10] MEDS: HEPARIN SOD (PORCINE) 1000 UNIT/ML IV ONE (19:43)
--- OUTSIDE RECORDS SUMMARY | 2024-01-10 19:53 | External Medical Summary | Summary of Care ---
Author Name Unknown Organization [facility] Address [address] [place] [address] Phone [phone] Care Team Providers Care Edge Banding Machine Offbearer Name Role Phone Unavailable Primary Care Provider Unavailabl e Reason for Visit * Reason Comments eRx-Medication Refill Encounter Details Date Type Department Care Team (Late st Contact Info) Description 10/13/2023 Refill Family Medicine [address] [phone] Loan Denson PA-C [address] [place] [address] JAMES Rebollar [id number] DM type 2, goal HbA1c < 7% (HCC) Allergies No known active allergiesdocumented as of this encounter (statuses as of 10/14/2023) Medications Medication Sig Dispensed Refills Start Date End Date Status LISINOPRIL 5 MG PO TABS 1 a day Active Gabapentin 300 MG Oral Capsule (Neurontin) Take 1 Capsule by mouth in the morning and 1 Capsule at noon and 1 Capsule before bedtime. Active Buprenorphine HCl 8 MG Sublingual Tablet Sublingual (Subutex) Place 1 Tablet under the tongue in the morning and 1 Tablet in the evening. 56 Tablet 08/23/2022 Active Ozempic (2 MG/DOSE) 8 MG/3ML Subcutaneous Solution Pen-injector (Semaglutide (2 MG/DOSE))Indications: DM type 2, goal HbA1c < 7% (HCC) Inject 2 mg under skin weekly 3 mL 5 12/25/2022 Active Rosuvastatin Calcium 40 MG Oral Tablet (Crestor)Indications: Dyslipidemia, goal LDL below 100 TAKE ONE TABLET AT BEDTIME 90 Tablet 1 02/22/2023 Active Pantoprazole Sodium 40 MG Oral Tablet Delayed Release (Protonix)Indications :Gastroesophageal reflux disease without esophagitis TAKE ONE TABLET IN THE MORNING 90 Tablet 1 02/22/2023 Active Pioglitazone HCl 30 MG Oral Tablet (Actos)Indications:DM type 2, goal HbA1c < 7% (HCC) TAKE ONE TABLET IN THE MORNING 90 Tablet 1 03/30/2023 Active Glimepiride 2 MG Oral Tablet (Amaryl)Indications:D M type 2, goal HbA1c < 7% (HCC) Take 1 Tablet by mouth in the morning. with the first main meal of the day for diabetes. 90 Tablet 1 06/03/2023 Active metFORMIN HCl ER 500 MG Oral Tablet Extended Release 24 Hour (Glucophage XR)Indications:DM type 2, goal HbA1c < 7% (HCC) TAKE TWO TABLETS TWICE DAILY 180 Tablet 1 07/08/2023 Active documented as of this encounter (statuses as of 10/14/2023) Active Problems Problem Noted Date Diagnosed Date DM type 2, goal HbA1c < 7% 08/23/2022 Hyperlipidemia LDL goal <100 08/23/2022 Primary hypertension 01/21/2009 Overview: Modified per HTN Taxonomy. documented as of this encounter (statuses as of 10/14/2023) Resolved Problems Problem Noted Date Diagnosed Date Resolved Date Dyslipidemia, goal to be determined 02/22/2009 08/23/2022 Overview: Per Lipid Taxonomy. Mixed dyslipidemia 06/06/2007 Overview: Per Lipid Taxonomy. FX UP END HUMERUS NOS-CL 02/02/200510/2022 HTN, goal below 140/90 01/21 Overview: Modified per HTN Taxonomy. documented as of this encounter (statuses as of 10/14/2023) Immunizations Name Administration Dates Next Due TDAP (age 10 and older)(Boostrix) 08/23/2022 documented as of this encounter Social History Tobacco Use Types Packs/Day Years Used Date Smoking Tobacco: Former Smokeless Tobacco: Current Snuff, Chew Comments:1 can /3days Alcohol Use Standard Drinks/Week Comments Yes 0 (1 standard drink = 0.6 oz pure alcohol) As of 05.04.2006, the last noted alcohol intake was 6 ounces. social Sex and Gender Information Value Date Recorded Sex Assigned at Not on file Gender Identity Not on file Sexual Orientation Not on file Job Start Date Occupation Industry Not on file Not on file Not on file documented as of this encounter Miscellaneous Notes * Telephone Encounter - Fernando Jacinto RPh - 10/14/2023 11:14 AM EDT Refused Prescriptions: Disp Refills metFORMIN HCl ER 500 MG Oral Tablet Extend*180 Ta*1 Sig: TAKE TWO TABLETS TWICE DAILYRefused By: FERNANDO JACINTO for Refusal: Too soon documented in this encounter Plan of Treatment Health Maintenance Due Date Last Done Comments Pneumococcal Vaccine: Pediatrics (0 to 5 Years) and At-Risk Patients (6 to 64 Years) (1 of 2 - PCV) 1983 Depression Screening 1989 HIV Screening 1992 Diabetic Eye Exam 1995 Diabetic Foot Exam 1995 Hepatitis B Vaccine (1 of 3 - 19+ 3-dose series) 1996 Cologuard 2022 Colonoscopy 2022 Colorectal Cancer Screening 2022 Fecal Occult Blood Test 2022 Sigmoidoscopy 2022 COVID-19 Vaccine (1 - 2022-2 4 season) 2022 HbA1c 05/02/2023 10/30/2022, 08/23/2022 Albumin/Creatinine Ratio 08/24/2023 08/23/2022 GFR 08/24/2023 08/23/2022, 12/11/2006, 08/21/2002 Influenza Vaccine (FLU shot) (#1) 2023 12/02/2015 Lipid Panel 08/24/2027 08/23/2022, 12/11/2006, 08/21/2002 DTaP,Tdap,and Td Vaccines (2 - Td or Tdap) 08/23/2032 08/23/2022 HPV (Gardasil) Vaccine Aged Out No lo nger eligible based on patient's age to complete this topic MENINGOCOCCAL (MENACTRA/MENVEO) Aged Out No longer eligible b ased on patient's age to complete this topic documented as of this encounter Medical Devices Not on filedocumented as of this encounter Visit Diagnoses Diagnosis DM type 2, goal HbA1c < 7% (HCC) documented in this encounter
--- OUTSIDE RECORDS SUMMARY | 2024-01-10 19:53 | External Medical Summary | Summary of Care ---
Author Name Unknown Organization [facility] Address [address] [place] [address] Phone [phone] Care Team Providers Care Rehabilitation Technician Name Role Phone Unavailable Primary Care Provider Unavailabl e Reason for Visit * Reason Comments eRx-Medication Refill Encounter Details Date Type Department Care Team (Late st Contact Info) Description 05/31/2023 Refill Family Medicine [address] [phone] Derick Araya MD [address] [place] [address] JAMES Rebollar [phone] DM type 2, goal HbA1c < 7% ([facility]) Allergies No known active allergiesdocumented as of this encounter (statuses as of 10/29/2023) Medications Medication Sig Dispensed Refills Start Date [...] 8 MG/3ML Subcutaneous Solution Pen-injector (Semaglutide (2 MG/DOSE))Indicatio ns:DM type 2, goal HbA1c < 7% (HCC) Inject 2 mg under skin weekly 3 mL 5 12/25/2022 Active Rosuvastatin Calcium 40 MG Oral Tablet (Crestor)Indicatio ns:Dyslipidemia, goal LDL below 100 TAKE ONE TABLET AT BEDTIME 90 Tablet 1 02/22/2023 Active Pantoprazole Sodium 40 MG Oral Tablet Delayed Release (Protonix)Indicati ons:Gastroesophage al reflux disease without esophagitis TAKE ONE TABLET IN THE MORNING 90 Tablet 1 02/22/2023 Active Pioglitazone HCl 30 MG Oral Tablet (Actos)Indications :DM type 2, goal HbA1c < 7% (HCC) TAKE ONE TABLET IN THE MORNING 90 Tablet 1 03/30/2023 Active Glimepiride 2 MG Oral Tablet (Amaryl)Indication s:DM type 2, goal HbA1c < 7% (HCC) Take 1 Tablet by mouth in the morning. with the first main meal of the day for diabetes. 90 Tablet 1 06/03/2023 Active Glimepiride 2 MG Oral Tablet (Amaryl)Indication s:DM type 2, goal HbA1c < 7% (HCC) Take 1 Tablet by mouth in the morning. with the first main meal of the day for diabetes. 30 Tablet 5 12/03/2022 4 Discontinued metFORMIN HCl ER 500 MG Oral Tablet Extended Release 24 Hour (Glucophage XR)Indications:DM type 2, goal HbA1c < 7% (HCC) TAKE TWO TABLETS TWICE DAILY 180 Tablet 1 04/08/2023 4 Discontinued documented as of this encounter (statuses as of 10/29/2023) Active Problems Problem Noted Date Diagnosed Date DM type 2, goal HbA1c < 7% 08/23/2022 Hyperlipidemia LDL goal <100 08/23/2022 Primary hypertension 01/21/2009 Overview: Modified per HTN Taxonomy. documented as of this encounter (statuses as of 10/29/2023) Resolved Problems Problem Noted Date Diagnosed Date Resolved Date Dyslipidemia, goal to be determined 02/22/2009 08/23/2022 Overview: Per Lipid Taxonomy. Mixed dyslipidemia 06/06/2007 Overview: Per Lipid Taxonomy. FX UP END HUMERUS NOS-CL 02/02/200510/2022 HTN, goal below 140/90 01/21 Overview: Modified per HTN Taxonomy. documented as of this encounter (statuses as of 10/29/2023) Immunizations Name Administration Dates Next Due TDAP [...] encounter Miscellaneous Notes * Telephone Encounter - Renetta Berman OSA - 10/29/2023 3:22 PM EDTSigned Prescriptions: Disp Refills Glimepiride 2 MG Oral Tablet (Amaryl) 90 Tab*1 Sig: Take 1 Tablet by mouth in the morning. with the first main meal of the day for diabetes.Authorizing Provider: ELLIOT REDDY * Telephone Encounter - Renetta Berman OSA - 10/29/2023 3:21 PM EDT Letter was previously sent to patient asking him to call and make appt. * Telephone Encounter - Kylah Hussein RN - 06/03/2023 9:39 AM EDTPending Prescriptions: Disp Refills Glimepiride 2 MG Oral Tablet (Amaryl) 90 Tab*1 Sig: Take 1 Tablet by mouth in the morning. with the first main meal of the day for diabetes. * Telephone Encounter - Kylah Hussein RN - 06/03/2023 9:38 AM EDT Nydia, please call pt to establish with a new doctor Med pended for refill * Telephone Encounter - Beatrice Meehan [facility] - 06/01/2023 10:57 AM EDT Pending Prescriptions: Disp Refills Glimepiride 2 MG Oral Tablet (Amaryl) 30 Tab*1 Sig: Take 1 Tablet by mouth in the morning. with the first main meal of the day for diabetes. * Telephone Encounter - Beatrice Meehan [facility] - 06/01/2023 10:54 AM EDT Patient has no PCP under whom to authorize refills. Previously prescribed by Dr. Araya. Thank you, Beatrice Meehan, PharmD Clinical Pharmacist [facility] [phone] 06/01/2023 10:55 AM Pending Prescriptions: Disp Refills Glimepiride 2 MG Oral Tablet (Amaryl) [Ph*30 Tab*1 Sig: Take 1 Tablet by mouth in the morning. with the first main meal of the day for diabetes. Last Visit: 10/30/2022 (in office), Visit date not found (telemedicine) Next Visit: Visit date not found If no future appointments scheduled, and last appointment is greater than a year ago, please schedule patient for a follow-up appointment Last date the medication was ordered: 12/03/22 Pharmacy: [facility], [address] [place] Is this request for a controlled substance? No Urine Drug Screen:No results found for this or any previous visit. Patient Phone Numbers Labs: Lab Results Component Value Date/Time CREAT 0.8 08/23/2022 11:08 AM CREAT 1.0 12/11/2006 10:23 AM POTASSIUM 3.6 08/23/2022 11:08 AM POTASSIUM 4.2 12/11/2006 10:23 AM LDLCALC 121 08/23/2022 11:08 AM LDLCALC UNINTERPRETABLE RESULT 12/11/2006 10:23 AM LDLDIRECT 122 08/21/2002 09:29 AM ALT 24 08/23/2022 11:08 AM ALT 54 (H) 01/16/2007 09:00 AM HGBA1C 7.7 (H) 10/30/2022 10:15 AM documented in this encounter Plan of Treatment [...]
--- NOTE | 2024-01-10 20:23 | Electrocardiogram Report ---
Test Reason : Blood Pressure : */* mmHG Vent. Rate : 85 BPM Atrial Rate : 85 BPM P-R Int : 122 ms QRS Dur : 94 ms QT Int : 460 ms P-R-T Axes : 51 -63 74 degrees QTcB Int : 547 ms Normal sinus rhythm Left axis deviation Nonspecific ST and T wave abnormality Prolonged QT Abnormal ECG When compared with ECG of 03-Sep-2017 09:43, QT has lengthened Confirmed by Lex Adair ([id number]) on 01/10/2024 8:23:04 PM Referred By: Confirmed By: Lex Adair
[2024-01-10] MEDS: HEPARIN SOD (PORCINE) 1000 UNIT/ML IV SCH (20:25)
[2024-01-11 00:36] LABS: BUN Creatinine Ratio 5.4 (10-20); Calcium 6.8 mg/dl (8.6-10.3); Creatinine Clr Calc Pharmacy 15.9 ml/min; Magnesium 1.9 mg/dl (1.7-2.4); Potassium 2.7 mmol/L (3.5-5.1); Troponin I High Sensitivity 126.6 pg/ml (0-20)
[2024-01-11] MEDS ORDERED: POTASSIUM CHLORIDE / WTR 20 MEQ/100 ML PLCT IV SCH ×2 (00:45→02:00)
[2024-01-11 00:54] LABS: Hep B Surface Ag with confirm Negative (Negative)
[2024-01-11 01:03] LABS: Hepatitis B Surface Ab Quant 3.28 mIU/mL (>or=10mIU/mL Immune); Hepatitis B Surface Antibody Non-Immune
[2024-01-11] MEDS: POTASSIUM CHLORIDE / WTR 20 MEQ/100 ML PLCT IV SCH ×3 (02:10→15:03)
[2024-01-11 04:51] LABS: Basophils # (auto) 0.02 K/uL (0.00-0.20); Basophils % (auto) 0.2 %; Hematocrit (blood only) 26.4 % (42.0-52.0); Immature Granulocytes # (auto) 0.04 K/uL (0.01-0.20); Immature Granulocytes % (auto) 0.4 %; Lymphocytes # (auto) 0.55 K/uL (1.20-3.40); Lymphocytes % (auto) 5.2 %; Mean Corpuscular Hemoglobin 26.2 pg (25.0-34.0); Mean Corpuscular Hgb Conc 34.1 g/dL (32.0-36.0); Mean Corpuscular Volume 76.7 fL (80.0-100.0); Mean Platelet Volume 9.6 fL (9.4-12.4); Monocytes # (auto) 0.64 K/uL (0.11-0.59); Neutrophils # (auto) 9.36 K/uL (1.40-6.50); Neutrophils % (auto) 88.2 %; Platelet Count 217 K/uL (130-400); RDW Coefficient of Variation 14.6 % (11.5-14.5); RDW Standard Deviation 39.8 fL (36.4-46.3); Red Blood Count 3.44 M/uL (4.70-6.10); White Blood Count 10.61 K/ul (4.8-10.8)
[2024-01-11 05:12] LABS: BUN Creatinine Ratio 6.1 (10-20); Calcium 6.6 mg/dl (8.6-10.3); Creatinine Clr Calc Pharmacy 14.3 ml/min; Magnesium 1.9 mg/dl (1.7-2.4)
[2024-01-11] MEDS: INSULIN ASPART PER UNIT CHARGE SC SCH (05:21)
[2024-01-11 07:16] LABS: Estimated Average Glucose 163 mg/dl; Hemoglobin A1C 7.3 % (4.5-5.6)
[2024-01-11] MEDS: MAGNESIUM SULFATE / D5W 1 GM/100 ML BAG IV ONE (08:33)
--- NOTE | 2024-01-11 08:53 | Nephrology Progress Note ---
Date of Service January 11, 2024 Assessment & Plan (1) RODRIGO (acute kidney injury): Plan: * Oliguric RODRIGO due to dehydration. Patient likely has suffered dense ATN. * High anion gap metabolic acidosis due to RODRIOG/metformin therapy * Keep Jenkins catheter in place * Patient was last dialyzed yesterday for 3 hours with 0 UF * Creatinine has risen from 5.9 postdialysis to 6.58 this morning. Patient remains oliguric. Urine output only 300 cc last 24 hours * POC discussed with ICU team this a.m. Will provide HD today for continued urea clearance. Orders have been placed in EMR and on-call HD RN notified * Continue gentle hydration with IV LR at 80 cc/hour. Monitor UO, BMP (2) Hypokalemia: Plan: * Attributed to GI losses and metabolic acidosis. IV replacement provided. 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 Baseline creatinine 1.1 mg/dL in July 2023. MACR ~300 mcg/mg. (5) DM2 (diabetes mellitus, type 2): Plan: * Metformin and semaglutide held. Admission and Anticipated Discharge Date Admission Date: January 10, 2024 Subjective Mr. Valadez was evaluated in the ICU this morning. He was awake, able to follow commands and answer questions appropriately. He denied fever, angina, dyspnea or abdominal discomfort. He reported no prior history of RODRIGO/CKD. He notes that he was off Ozempic he in the past due to loss of insurance. He reports no prior side effect from the medication. Review of Systems Constitutional: no fever Eyes: no problem reported Ear, Nose, Mouth, Throat: no problem reported Respiratory: no cough and no dyspnea Cardiovascular: no chest pain Gastrointestinal: no abdominal pain Physical Exam Constitutional: + ill appearing; not in distress Eyes: PERRL, conjunctivae normal, anicteric sclerae ENMT: NG tube in place connected to LWS Neck: trachea midline, no thyromegaly L IJ TCC in place w/ clean dry dressing Respiratory: normal respiratory effort, lungs clear to auscultation Cardiovascular: RRR, no murmur, no edema Gastrointestinal (Abdomen): Inspection/Auscultation: + abdomen distended and + hypoactive bowel sounds Percussion/Palpation: abdomen nontender and no guarding Musculoskeletal: Extremities: no cyanosis and no clubbing Skin: no rashes, warm and dry Neurologic: Speech / Cognition: normal speech and normal cognition Results & Data Vital Signs (Past 12 Hours) Vital Signs Temp Pulse Pulse Resp BP BP Pulse Ox 01/11/24 07:30 37.1 C 69 14 96 01/11/24 07:15 78 12 95 01/11/24 07:00 131/71 01/11/24 06:45 72 16 95 01/11/24 06:18 68 16 98 01/11/24 06:03 70 18 97 01/11/24 06:00 134/79 01/11/24 06:00 134/79 01/11/24 06:00 134/79 01/11/24 05:36 82 15 98 01/11/24 05:30 72 13 98 01/11/24 05:21 72 14 97 01/11/24 05:09 70 17 96 01/11/24 04:57 71 15 94 01/11/24 04:33 73 10 L 97 01/11/24 04:15 75 15 96 01/11/24 04:00 71 17 95 01/11/24 03:45 77 16 96 01/11/24 03:39 82 17 96 01/11/24 03:00 117/68 01/11/24 03:00 79 15 93 01/11/24 02:51 78 14 95 01/11/24 02:42 77 17 93 01/11/24 02:00 103/64 01/11/24 02:00 103/64 01/11/24 01:54 78 18 89 L 01/11/24 01:33 84 19 96 01/11/24 01:00 80 18 90 01/11/24 01:00 123/69 01/11/24 01:00 123/69 01/11/24 00:54 78 16 89 L 01/11/24 00:30 84 10 L 98 01/11/24 00:15 80 16 90 01/11/24 00:03 79 18 93 01/11/24 00:00 124/65 01/10/24 23:57 81 16 94 01/10/24 23:45 88 18 96 01/10/24 23:30 83 19 91 01/10/24 23:27 82 17 96 01/10/24 23:00 107/65 01/10/24 23:00 107/65 01/10/24 23:00 107/65 01/10/24 23:00 107/65 01/10/24 23:00 82 20 96 01/10/24 22:57 80 17 95 01/10/24 22:36 80 20 94 01/10/24 22:24 92 H 16 91 01/10/24 22:06 86 16 93 01/10/24 21:45 82 23 98 01/10/24 21:35 37.1 C 80 127/73 01/10/24 21:21 79 18 94 01/10/24 21:06 78 18 97 01/10/24 21:00 125/85 01/10/24 21:00 125/85 01/10/24 21:00 125/85 01/10/24 21:00 80 125/85 Laboratory Results Laboratory Results - last 24 hr 01/10/24 01/10/24 01/10/24 10:19 10:35 11:54 WBC 16.76 H RBC 4.07 L Hgb 10.7 L POC Hgb Hct 32.2 L POC Hct MCV 79.1 L MCH 26.3 MCHC 33.2 RDW Std Deviation 40.6 RDW Coeff of Parveen 14.4 Plt Count 392 MPV 10.2 Immature Gran % (Auto) 1.1 Neut % (Auto) 79.0 Lymph % (Auto) 13.6 [place] % (Auto) 6.1 Eos % (Auto) 0.0 Baso % (Auto) 0.2 Neut # (Auto) 13.23 H Lymph # (Auto) 2.28 [place] # (Auto) 1.03 H Eos # (Auto) 0.00 Baso # (Auto) 0.04 Immature Gran # (Auto) 0.18 Specimen Type POC pH POC pCO2 POC pO2 POC HCO3 POC Total CO2 POC Base Excess POC ABG O2 Sat VBG pH VBG pCO2 VBG pO2 VBG HCO3 VBG O2 Saturation VBG Base Excess POC Sodium Sodium 141 143 POC Potassium Potassium 2.5 L* 2.7 L Chloride 79 L 82 L Carbon Dioxide 9 L* 9 L* Anion Gap 53 H 52 H BUN 52 H 53 H Creatinine 11.34 H* 10.92 H* D Est Cr Clr Drug Dosing 8.3 8.6 eGFR 5.10 5.34 BUN/Creatinine Ratio 4.6 L 4.9 L Glucose 308 H* 260 H POC Glucose 297 H Estimat Average Glucose Hemoglobin A1c Osmolality Lactate 11.9 H* Calcium 5.5 L* 5.4 L* Phosphorus Magnesium 1.0 L Total Bilirubin 0.6 AST 30 ALT 20 Alkaline Phosphatase 65 Ammonia Troponin I High Sens 65.3 H* 61.8 H* Total Protein 7.3 Albumin 4.4 Globulin 2.9 Albumin/Globulin Ratio 1.5 Urine Color Urine Appearance Urine pH Ur Specific [place] Urine Protein Urine Glucose (UA) Urine Ketones Urine Blood Urine Nitrite Urine Bilirubin Urine Urobilinogen Ur Leukocyte Esterase Urine WBC (Auto) Urine RBC (Auto) U Hyaline Cast (Auto) U Epithel Cells (Auto) Urine Bacteria (Auto) Ur Random Creatinine Ur Random Sodium Nasal Screen MRSA (PCR) Salicylates Urine Opiates Screen Ur Methadone, Qual Urine Fentanyl Screen Acetaminophen Urine Barbiturates Ur Phencyclidine (PCP) U Amphetamines Confirm U Amphetamin/Meth Scrn U Methamphetamin Confrm MDMA (Ecstasy) Screen U Benzodiazepines Scrn Ur Cocaine Metabolite U Marijuana (THC) Screen Drug Screen Comment Adenovirus (PCR) B. pertussis DNA (PCR) B.parapertussis DNA PCR C. pneumoniae DNA (PCR) Coronavirus OC43 (PCR) Coronavirus HKU1 (PCR) Coronavirus 229E (PCR) SARS-CoV-2 (PCR) Coronavirus NL63 (PCR) Hep Bs Antigen Hep Bs Antibody Hep Bs Antibody, Quant Human Metapneumovir PCR Influenza Type A (PCR) Influenza Type B (PCR) M. pneumoniae (PCR) Parainfluenza 1 (PCR) Parainfluenza 2 (PCR) Parainfluenza 3 (PCR) Parainfluenza 4 (PCR) RSV (PCR) Entero/Rhino (PCR) 01/10/24 01/10/24 01/10/24 13:25 14:18 14:20 WBC 16.46 H RBC 3.59 L Hgb 9.4 L POC Hgb Hct 28.3 L POC Hct MCV 78.8 L MCH 26.2 MCHC 33.2 RDW Std Deviation 40.6 RDW Coeff of Parveen 14.5 Plt Count 333 MPV 10.3 Immature Gran % (Auto) 1.0 Neut % (Auto) 81.2 Lymph % (Auto) 10.8 [place] % (Auto) 6.8 Eos % (Auto) 0.0 Baso % (Auto) 0.2 Neut # (Auto) 13.38 H Lymph # (Auto) 1.77 [place] # (Auto) 1.12 H Eos # (Auto) 0.00 Baso # (Auto) 0.03 Immature Gran # (Auto) 0.16 Specimen Type POC pH POC pCO2 POC pO2 POC HCO3 POC Total CO2 POC Base Excess POC ABG O2 Sat VBG pH 7.20 L VBG pCO2 26 L VBG pO2 41 VBG HCO3 10 VBG O2 Saturation < 60.0 VBG Base Excess -16.2 POC Sodium Sodium 141 POC Potassium Potassium 2.5 L* Chloride 87 L Carbon Dioxide 10 L Anion Gap 44 H BUN 53 H Creatinine 10.50 H* D Est Cr Clr Drug Dosing 9.0 eGFR 5.59 BUN/Creatinine Ratio 5.0 L Glucose 286 H POC Glucose 300 H Estimat Average Glucose Hemoglobin A1c Osmolality 319 H Lactate 9.7 H* Calcium 5.0 L* Phosphorus 10.2 H Magnesium Total Bilirubin AST ALT Alkaline Phosphatase Ammonia Troponin I High Sens 70.0 H* Total Protein Albumin Globulin Albumin/Globulin Ratio Urine Color Yellow Urine Appearance Clear Urine pH 5.5 Ur Specific [place] 1.012 Urine Protein 2+ H Urine Glucose (UA) Negative Urine Ketones 2+ H Urine Blood 3+ H Urine Nitrite Negative Urine Bilirubin Negative Urine Urobilinogen Negative Ur Leukocyte Esterase Negative Urine WBC (Auto) 0-5 Urine RBC (Auto) 6-10 H U Hyaline Cast (Auto) 3-5 H U Epithel Cells (Auto) 0-2 Urine Bacteria (Auto) None Seen Ur Random Creatinine 55.2 Ur Random Sodium 103 Nasal Screen MRSA (PCR) Salicylates < 3.0 L Urine Opiates Screen Neg Ur Methadone, Qual Neg Urine Fentanyl Screen Neg Acetaminophen < 3 L Urine Barbiturates Neg Ur Phencyclidine (PCP) Neg U Amphetamines Confirm Pending U Amphetamin/Meth Scrn Pos H U Methamphetamin Confrm Pending MDMA (Ecstasy) Screen Neg U Benzodiazepines Scrn Neg Ur Cocaine Metabolite Neg U Marijuana (THC) Screen Neg Drug Screen Comment Pending Adenovirus (PCR) B. pertussis DNA (PCR) B.parapertussis DNA PCR C. pneumoniae DNA (PCR) Coronavirus OC43 (PCR) Coronavirus HKU1 (PCR) Coronavirus 229E (PCR) SARS-CoV-2 (PCR) Coronavirus NL63 (PCR) Hep Bs Antigen Hep Bs Antibody Hep Bs Antibody, Quant Human Metapneumovir PCR Influenza Type A (PCR) Influenza Type B (PCR) M. pneumoniae (PCR) Parainfluenza 1 (PCR) Parainfluenza 2 (PCR) Parainfluenza 3 (PCR) Parainfluenza 4 (PCR) RSV (PCR) Entero/Rhino (PCR) 01/10/24 01/10/24 01/10/24 15:00 15:25 15:48 WBC RBC Hgb POC Hgb 9.2 L Hct POC Hct 27 L MCV MCH MCHC RDW Std Deviation RDW Coeff of Parveen Plt Count MPV Immature Gran % (Auto) Neut % (Auto) Lymph % (Auto) [place] % (Auto) Eos % (Auto) Baso % (Auto) Neut # (Auto) Lymph # (Auto) [place] # (Auto) Eos # (Auto) Baso # (Auto) Immature Gran # (Auto) Specimen Type Arterial POC pH 7.29 L POC pCO2 21 L POC pO2 113 H POC HCO3 10 L POC Total CO2 11 L POC Base Excess -17.0 L POC ABG O2 Sat 98.0 H VBG pH VBG pCO2 VBG pO2 VBG HCO3 VBG O2 Saturation VBG Base Excess POC Sodium 134 L Sodium POC Potassium 2.2 L* Potassium Chloride Carbon Dioxide Anion Gap BUN Creatinine Est Cr Clr Drug Dosing eGFR BUN/Creatinine Ratio Glucose POC Glucose Estimat Average Glucose Hemoglobin A1c Osmolality Lactate Calcium Phosphorus Magnesium Total Bilirubin AST ALT Alkaline Phosphatase Ammonia 57.0 Troponin I High Sens Total Protein Albumin Globulin Albumin/Globulin Ratio Urine Color Urine Appearance Urine pH Ur Specific [place] Urine Protein Urine Glucose (UA) Urine Ketones Urine Blood Urine Nitrite Urine Bilirubin Urine Urobilinogen Ur Leukocyte Esterase Urine WBC (Auto) Urine RBC (Auto) U Hyaline Cast (Auto) U Epithel Cells (Auto) Urine Bacteria (Auto) Ur Random Creatinine Ur Random Sodium Nasal Screen MRSA (PCR) Salicylates Urine Opiates Screen Ur Methadone, Qual Urine Fentanyl Screen Acetaminophen Urine Barbiturates Ur Phencyclidine (PCP) U Amphetamines Confirm U Amphetamin/Meth Scrn U Methamphetamin Confrm MDMA (Ecstasy) Screen U Benzodiazepines Scrn Ur Cocaine Metabolite U Marijuana (THC) Screen Drug Screen Comment Adenovirus (PCR) Not Detected B. pertussis DNA (PCR) Not Detected B.parapertussis DNA PCR Not Detected C. pneumoniae DNA (PCR) Not Detected Coronavirus OC43 (PCR) Not Detected Coronavirus HKU1 (PCR) Not Detected Coronavirus 229E (PCR) Not Detected SARS-CoV-2 (PCR) Not Detected Coronavirus NL63 (PCR) Not Detected Hep Bs Antigen Hep Bs Antibody Hep Bs Antibody, Quant Human Metapneumovir PCR Not Detected Influenza Type A (PCR) Not Detected Influenza Type B (PCR) Not Detected M. pneumoniae (PCR) Not Detected Parainfluenza 1 (PCR) Not Detected Parainfluenza 2 (PCR) Not Detected Parainfluenza 3 (PCR) Not Detected Parainfluenza 4 (PCR) Not Detected RSV (PCR) Not Detected Entero/Rhino (PCR) Not Detected 01/10/24 01/10/24 01/10/24 16:06 16:32 16:42 WBC RBC Hgb POC Hgb Hct POC Hct MCV MCH MCHC RDW Std Deviation RDW Coeff of Parveen Plt Count MPV Immature Gran % (Auto) Neut % (Auto) Lymph % (Auto) [place] % (Auto) Eos % (Auto) Baso % (Auto) Neut # (Auto) Lymph # (Auto) [place] # (Auto) Eos # (Auto) Baso # (Auto) Immature Gran # (Auto) Specimen Type POC pH POC pCO2 POC pO2 POC HCO3 POC Total CO2 POC Base Excess POC ABG O2 Sat VBG pH VBG pCO2 VBG pO2 VBG HCO3 VBG O2 Saturation VBG Base Excess POC Sodium Sodium 139 POC Potassium Potassium 2.5 L* Chloride 90 L Carbon Dioxide 13 L Anion Gap 36 H BUN 52 H Creatinine 10.17 H* D Est Cr Clr Drug Dosing 9.2 eGFR 5.81 BUN/Creatinine Ratio 5.1 L Glucose 225 H POC Glucose 230 H Estimat Average Glucose Hemoglobin A1c Osmolality Lactate Calcium 5.1 L* Phosphorus 7.8 H Magnesium 1.9 Total Bilirubin AST ALT Alkaline Phosphatase Ammonia Troponin I High Sens Total Protein Albumin Globulin Albumin/Globulin Ratio Urine Color Urine Appearance Urine pH Ur Specific [place] Urine Protein Urine Glucose (UA) Urine Ketones Urine Blood Urine Nitrite Urine Bilirubin Urine Urobilinogen Ur Leukocyte Esterase Urine WBC (Auto) Urine RBC (Auto) U Hyaline Cast (Auto) U Epithel Cells (Auto) Urine Bacteria (Auto) Ur Random Creatinine Ur Random Sodium Nasal Screen MRSA (PCR) Negative Salicylates Urine Opiates Screen Ur Methadone, Qual Urine Fentanyl Screen Acetaminophen Urine Barbiturates Ur Phencyclidine (PCP) U Amphetamines Confirm U Amphetamin/Meth Scrn U Methamphetamin Confrm MDMA (Ecstasy) Screen U Benzodiazepines Scrn Ur Cocaine Metabolite U Marijuana (THC) Screen Drug Screen Comment Adenovirus (PCR) B. pertussis DNA (PCR) B.parapertussis DNA PCR C. pneumoniae DNA (PCR) Coronavirus OC43 (PCR) Coronavirus HKU1 (PCR) Coronavirus 229E (PCR) SARS-CoV-2 (PCR) Coronavirus NL63 (PCR) Hep Bs Antigen Hep Bs Antibody Hep Bs Antibody, Quant Human Metapneumovir PCR Influenza Type A (PCR) Influenza Type B (PCR) M. pneumoniae (PCR) Parainfluenza 1 (PCR) Parainfluenza 2 (PCR) Parainfluenza 3 (PCR) Parainfluenza 4 (PCR) RSV (PCR) Entero/Rhino (PCR) 01/10/24 01/10/24 01/10/24 18:12 18:15 20:44 WBC RBC Hgb POC Hgb Hct POC Hct MCV MCH MCHC RDW Std Deviation RDW Coeff of Parveen Plt Count MPV Immature Gran % (Auto) Neut % (Auto) Lymph % (Auto) [place] % (Auto) Eos % (Auto) Baso % (Auto) Neut # (Auto) Lymph # (Auto) [place] # (Auto) Eos # (Auto) Baso # (Auto) Immature Gran # (Auto) Specimen Type POC pH POC pCO2 POC pO2 POC HCO3 POC Total CO2 POC Base Excess POC ABG O2 Sat VBG pH VBG pCO2 VBG pO2 VBG HCO3 VBG O2 Saturation VBG Base Excess POC Sodium Sodium 140 POC Potassium Potassium 2.5 L* Chloride 90 L Carbon Dioxide 15 L Anion Gap 35 H BUN 54 H Creatinine 10.29 H* Est Cr Clr Drug Dosing 9.1 eGFR 5.73 BUN/Creatinine Ratio 5.2 L Glucose 196 H POC Glucose 202 H 121 H Estimat Average Glucose Hemoglobin A1c Osmolality Lactate Calcium 5.1 L* Phosphorus Magnesium 2.1 Total Bilirubin AST ALT Alkaline Phosphatase Ammonia Troponin I High Sens Total Protein Albumin Globulin Albumin/Globulin Ratio Urine Color Urine Appearance Urine pH Ur Specific [place] Urine Protein Urine Glucose (UA) Urine Ketones Urine Blood Urine Nitrite Urine Bilirubin Urine Urobilinogen Ur Leukocyte Esterase Urine WBC (Auto) Urine RBC (Auto) U Hyaline Cast (Auto) U Epithel Cells (Auto) Urine Bacteria (Auto) Ur Random Creatinine Ur Random Sodium Nasal Screen MRSA (PCR) Salicylates Urine Opiates Screen Ur Methadone, Qual Urine Fentanyl Screen Acetaminophen Urine Barbiturates Ur Phencyclidine (PCP) U Amphetamines Confirm U Amphetamin/Meth Scrn U Methamphetamin Confrm MDMA (Ecstasy) Screen U Benzodiazepines Scrn Ur Cocaine Metabolite U Marijuana (THC) Screen Drug Screen Comment Adenovirus (PCR) B. pertussis DNA (PCR) B.parapertussis DNA PCR C. pneumoniae DNA (PCR) Coronavirus OC43 (PCR) Coronavirus HKU1 (PCR) Coronavirus 229E (PCR) SARS-CoV-2 (PCR) Coronavirus NL63 (PCR) Hep Bs Antigen Hep Bs Antibody Hep Bs Antibody, Quant Human Metapneumovir PCR Influenza Type A (PCR) Influenza Type B (PCR) M. pneumoniae (PCR) Parainfluenza 1 (PCR) Parainfluenza 2 (PCR) Parainfluenza 3 (PCR) Parainfluenza 4 (PCR) RSV (PCR) Entero/Rhino (PCR) 01/10/24 01/11/24 23:36 04:35 WBC 10.61 RBC 3.44 L Hgb 9.0 L POC Hgb Hct 26.4 L POC Hct MCV 76.7 L MCH 26.2 MCHC 34.1 RDW Std Deviation 39.8 RDW Coeff of Parveen 14.6 H Plt Count 217 MPV 9.6 Immature Gran % (Auto) 0.4 Neut % (Auto) 88.2 Lymph % (Auto) 5.2 [place] % (Auto) 6.0 Eos % (Auto) 0.0 Baso % (Auto) 0.2 Neut # (Auto) 9.36 H Lymph # (Auto) 0.55 L [place] # (Auto) 0.64 H Eos # (Auto) 0.00 Baso # (Auto) 0.02 Immature Gran # (Auto) 0.04 Specimen Type POC pH POC pCO2 POC pO2 POC HCO3 POC Total CO2 POC Base Excess POC ABG O2 Sat VBG pH VBG pCO2 VBG pO2 VBG HCO3 VBG O2 Saturation VBG Base Excess POC Sodium Sodium 140 139 POC Potassium Potassium 2.7 L 3.0 L Chloride 101 101 Carbon Dioxide 22 23 Anion Gap 17 H 15 H BUN 32 H D 40 H Creatinine 5.92 H* D 6.58 H* D Est Cr Clr Drug Dosing 15.9 14.3 eGFR 11.13 9.80 BUN/Creatinine Ratio 5.4 L 6.1 L Glucose 130 H 144 H POC Glucose Estimat Average Glucose 163 Hemoglobin A1c 7.3 H Osmolality Lactate Calcium 6.8 L 6.6 L Phosphorus 4.0 D Magnesium 1.9 1.9 Total Bilirubin AST ALT Alkaline Phosphatase Ammonia Troponin I High Sens 126.6 H* D 121.5 H* Total Protein Albumin Globulin Albumin/Globulin Ratio Urine Color Urine Appearance Urine pH Ur Specific [place] Urine Protein Urine Glucose (UA) Urine Ketones Urine Blood Urine Nitrite Urine Bilirubin Urine Urobilinogen Ur Leukocyte Esterase Urine WBC (Auto) Urine RBC (Auto) U Hyaline Cast (Auto) U Epithel Cells (Auto) Urine Bacteria (Auto) Ur Random Creatinine Ur Random Sodium Nasal Screen MRSA (PCR) Salicylates Urine Opiates Screen Ur Methadone, Qual Urine Fentanyl Screen Acetaminophen Urine Barbiturates Ur Phencyclidine (PCP) U Amphetamines Confirm U Amphetamin/Meth Scrn U Methamphetamin Confrm MDMA (Ecstasy) Screen U Benzodiazepines Scrn Ur Cocaine Metabolite U Marijuana (THC) Screen Drug Screen Comment Adenovirus (PCR) B. pertussis DNA (PCR) B.parapertussis DNA PCR C. pneumoniae DNA (PCR) Coronavirus OC43 (PCR) Coronavirus HKU1 (PCR) Coronavirus 229E (PCR) SARS-CoV-2 (PCR) Coronavirus NL63 (PCR) Hep Bs Antigen Negative Hep Bs Antibody Non-Immune Hep Bs Antibody, Quant 3.28 Human Metapneumovir PCR Influenza Type A (PCR) Influenza Type B (PCR) M. pneumoniae (PCR) Parainfluenza 1 (PCR) Parainfluenza 2 (PCR) Parainfluenza 3 (PCR) Parainfluenza 4 (PCR) RSV (PCR) Entero/Rhino (PCR) PG Care Time/CCT Total # of Minutes Spent Total Time Spent with Patient: Total time spent is greater than 50% in coordination of care (as documented) at patient's floor/unit and/or counseling patient: Coding Level of Care Code 13726 SUB INP/OBS CARE 3/50MIN Diagnoses RODRIGO (acute kidney injury) N17.9 Hypokalemia E87.6 Lactic acidosis E87.20 Diabetic nephropathy associated with type 2 diabetes mellitus E11.21 Diabetes mellitus type: type 2 DM2 (diabetes mellitus, type 2) E11.9 (4) Diabetic nephropathy Diabetes mellitus type: type 2 Qualified Code(s): E11.21 - Type 2 diabetes mellitus with diabetic nephropathy
[2024-01-11] MEDS: CALCIUM GLUCONATE 1,000 MG/60 ML BAG IV SCH ×2 (08:56→15:09)
[2024-01-11] MEDS ORDERED: PHARMACY GLYCEMIC MGMT CONSULT PRN (09:27)
--- NOTE | 2024-01-11 09:34 | Surgery Progress Note ---
Date of Service January 11, 2024 Assessment & Plan (1) Gastric outlet obstruction: Plan: doubt surgical issue cont IVF/correct labs will continue to follow Admission and Anticipated Discharge Date Admission Date: January 10, 2024 Subjective pt seen. intermittently confused per nursing.... pt denies pain or nausea currently Physical Exam Constitutional: WD/WN, vitals as above no acute distress and not ill appearing Eyes: PERRL, conjunctivae normal, anicteric sclerae EOM intact bilaterally ENMT: external ear and nose normal, oropharynx normal Ears: no hearing impairment Neck: trachea midline, no thyromegaly Respiratory: normal respiratory effort; no respiratory distress and does not use accessory muscles Cardiovascular: Rate/Rhythm: regular rate and regular rhythm Gastrointestinal (Abdomen): soft. nt. nd. Skin: no rashes, warm and dry Psychiatric: Orientation: alert, oriented x 3 and cooperative Results & Data Vital Signs (Past 12 Hours) Vital Signs Temp Pulse Pulse Resp BP BP Pulse Ox 01/11/24 09:00 138/78 01/11/24 09:00 138/78 01/11/24 08:54 81 37 H 92 01/11/24 08:45 72 16 95 01/11/24 08:39 67 16 96 01/11/24 08:18 65 16 95 01/11/24 08:03 37.0 C 68 13 94 01/11/24 08:00 122/70 01/11/24 08:00 69 01/11/24 07:51 68 14 96 01/11/24 07:45 72 16 94 01/11/24 07:30 37.1 C 69 14 96 01/11/24 07:15 78 12 95 01/11/24 07:00 131/71 01/11/24 06:45 72 16 95 01/11/24 06:18 68 16 98 01/11/24 06:03 70 18 97 01/11/24 06:00 134/79 01/11/24 06:00 134/79 01/11/24 06:00 134/79 01/11/24 05:36 82 15 98 01/11/24 05:30 72 13 98 01/11/24 05:21 72 14 97 01/11/24 05:09 70 17 96 01/11/24 04:57 71 15 94 01/11/24 04:33 73 10 L 97 01/11/24 04:15 75 15 96 01/11/24 04:00 71 17 95 01/11/24 03:45 77 16 96 01/11/24 03:39 82 17 96 01/11/24 03:00 117/68 01/11/24 03:00 79 15 93 01/11/24 02:51 78 14 95 01/11/24 02:42 77 17 93 01/11/24 02:00 10301/11/24 02:00 10301/11/24 01:54 78 18 89 L 01/11/24 01:33 84 19 96 01/11/24 01:00 80 18 90 01/11/24 01:00 123/69 01/11/24 01:00 123/69 01/11/24 00:54 78 16 89 L 01/11/24 00:30 84 10 L 98 01/11/24 00:15 80 16 90 01/11/24 00:03 79 18 93 01/11/24 00:00 124/65 01/10/24 23:57 81 16 94 01/10/24 23:45 88 18 96 01/10/24 23:30 83 19 91 01/10/24 23:27 82 17 96 01/10/24 23:00 107/65 01/10/24 23:00 107/65 01/10/24 23:00 107/65 01/10/24 23:00 107/65 01/10/24 23:00 82 20 96 01/10/24 22:57 80 17 95 01/10/24 22:36 80 20 94 01/10/24 22:24 92 H 16 91 01/10/24 22:06 86 16 93 01/10/24 21:45 82 23 98 01/10/24 21:35 37.1 C 80 127/73 PG Care Time/CCT Total # of Minutes Spent Total Time Spent with Patient: Total time spent is greater than 50% in coordination of care (as documented) at patient's floor/unit and/or counseling patient: Coding Level of Care Code 87387 SUB INP/OBS CARE 04/11MIN Diagnoses Gastric outlet obstruction K31.1
[2024-01-11] MEDS: 4.5GM EXT INFUSION IV SCH (09:45)
[2024-01-11] MEDS: HEPARIN SOD 5,000 UNIT/0.5 ML VIAL SQ SCH (09:52)
[2024-01-11 10:34] LABS: Appearance Urine Cloudy (Clear); Bilirubin Urine Negative (Negative); Blood Urine 3+ (Negative); Color Urine Yellow; Epithelial Cell Urine Auto 0-2 /hpf (0-2); Glucose Urine UA Negative (Negative); Ketones Urine Negative (Negative); Leukocyte Esterase Urine 2+ (Negative); Nitrite Urine Negative (Negative); Protein Urine 2+ (Negative); Specific Gravity Urine 1.007 (1.000-1.030); Urobilinogen Urine Negative (Negative); WBC Urine Automated 21-50 /hpf (0-5); pH Urine 5.5 (4.5-7.5)
[2024-01-11 10:49] LABS: Granular Casts Urine Present /lpf (None Prsent); Waxy Casts Urine Present /lpf (None Prsent)
[2024-01-11 10:53] LABS: Bacteria Urine Automated 1+ (None Seen)
--- NOTE | 2024-01-11 10:56 | Gastroenterology Progress Note ---
Date of Service January 11, 2024 Assessment & Plan (1) Nausea & vomiting: Plan: Nausea vomiting likely caused by acute renal failure, possible diabetic gastroparesis, possible drug-induced (Ozempic). Symptoms are improving. Minimal drainage from the NG tube. Recommend to clamp the NG tube and recheck residual after 1 hour. Okay to remove NG tube if residual is below 100 mL If stable okay to start clear liquid diet. Admission and Anticipated Discharge Date Admission Date: January 10, 2024 Subjective The patient is improving. Denies abdominal pain, nausea, vomiting. Minimal drainage from the NG tube. The patient is hungry and wants to eat. Review of Systems Review of Systems: Constitutional: chills, fever, fatigue. Respiratory: Denies cough, denies shortness of breath. Cardiovascular: Denies chest pain and palpitations. Gastrointestinal: Denies nausea, vomiting, diarrhea, constipation, abdominal pain. Physical Exam Physical Exam: Constitutional: WD/WN, vitals as above Respiratory: normal respiratory effort, lungs clear to auscultation Cardiovascular: RRR, no murmur, no edema Gastrointestinal (Abdomen): normal bowel sounds, soft, nontender, no hepatosplenomegaly. Neurological: Oriented x 3, grossly no focal abnormalities, speech is intact. Results & Data Results & Data Vital Signs (Past 12 Hours) Vital Signs Temp Pulse Resp BP BP Pulse Ox 01/11/24 10:15 67 17 96 01/11/24 10:09 61 13 96 01/11/24 10:00 134/78 01/11/24 09:45 67 15 97 01/11/24 09:33 71 15 96 01/11/24 09:27 69 13 96 01/11/24 09:00 138/78 01/11/24 09:00 138/78 01/11/24 08:54 81 37 H 92 01/11/24 08:45 72 16 95 01/11/24 08:39 67 16 96 01/11/24 08:18 65 16 95 01/11/24 08:03 37.0 C 68 13 94 01/11/24 08:00 122/70 01/11/24 08:00 69 01/11/24 07:51 68 14 96 01/11/24 07:45 72 16 94 01/11/24 07:30 37.1 C 69 14 96 01/11/24 07:15 78 12 95 10/26/24 07:00 131/71 01/11/24 06:45 72 16 95 01/11/24 06:18 68 16 98 01/11/24 06:03 70 18 97 01/11/24 06:00 134/79 01/11/24 06:00 134/79 01/11/24 06:00 134/79 01/11/24 05:36 82 15 98 01/11/24 05:30 72 13 98 01/11/24 05:21 72 14 97 01/11/24 05:09 70 17 96 01/11/24 04:57 71 15 94 01/11/24 04:33 73 10 L 97 01/11/24 04:15 75 15 96 01/11/24 04:00 71 17 95 01/11/24 03:45 77 16 96 01/11/24 03:39 82 17 96 01/11/24 03:00 117/68 01/11/24 03:00 79 15 93 01/11/24 02:51 78 14 95 01/11/24 02:42 77 17 93 01/11/24 02:00 103/64 01/11/24 02:00 103/64 01/11/24 01:54 78 18 89 L 01/11/24 01:33 84 19 96 01/11/24 01:00 80 18 90 01/11/24 01:00 123/69 01/11/24 01:00 123/69 01/11/24 00:54 78 16 89 L 01/11/24 00:30 84 10 L 98 01/11/24 00:15 80 16 90 01/11/24 00:03 79 18 93 01/11/24 00:00 124/65 01/10/24 23:57 81 16 94 01/10/24 23:45 88 18 96 01/10/24 23:30 83 19 91 01/10/24 23:27 82 17 96 01/10/24 23:00 107/65 01/10/24 23:00 107/65 01/10/24 23:00 107/65 01/10/24 23:00 107/65 01/10/24 23:00 82 20 96 01/10/24 22:57 80 17 95 PG Care Time/CCT Total # of Minutes Spent Total Time Spent with Patient: Total time spent is greater than 50% in coordination of care (as documented) at patient's floor/unit and/or counseling patient: Coding Level of Care Code 13331 SUB INP/OBS CARE 2/35MIN Diagnoses Nausea and vomiting, unspecified vomiting type R11.2 Vomiting type: unspecified (1) Nausea & vomiting Vomiting type: unspecified Qualified Code(s): R11.2 - Nausea with vomiting, unspecified
--- NOTE | 2024-01-11 11:26 | Critical Care Progress Note ---
Date of Service January 11, 2024 Assessment & Plan (1) Lactic acidosis: (2) Gastric outlet obstruction: (3) Nausea & vomiting: (4) Opiate dependence: (5) RODRIGO (acute kidney injury): (6) Hypokalemia due to excessive gastrointestinal loss of potassium: (7) Hypomagnesemia: Plan 48-year-old male with a history of diabetic mellitus type II, opiate abuse, depression anxiety who presented to the hospital with severe nausea and vomiting found to have gastric outlet obstruction, severe lactic acidosis, severe RODRIGO and severe electrolyte derangements Neurologic: Delirium resolving with improvement of electrolytes and improvement of uremia. Pulmonary: O2 requirements minimal at this time. Fortunately, no signs of aspiration pneumonitis. Cardiovascular: No significant hemodynamic issues. Monitor telemetry closely given electrolyte derangements. Minimal troponin leak likely due to demand ischemia. Gastrointestinal: Clamping trial of NG tube currently for GI input. Appreciate studio engineer evaluation. Suspect patient with gastroparesis and gastric outlet obstruction secondary to Ozempic and diabetes mellitus. BioFire was negative for viral illness. Lipase unremarkable. Renal: Severe acidosis improving with hemodialysis and fluid resuscitation. Repeat lactate today. Suspect lactic acidosis was due to profound hypovolemia and possibly metformin use. Ischemic colitis thought to be much less likely as his abdomen is soft and nontender today. Patient will undergo an additional hemodialysis session per nephrology today. Replace electrolytes aggressively including potassium and magnesium. Infectious disease: Follow blood cultures and continue empiric Zosyn for total of 48 hours. If fever curve remains normal white count continues to downtrend, will discontinue antibiotics. Hematologic: Patient with mild anemia at baseline and now with evidence of hemodilution. CBC largely stable. Endocrine: Patient with evidence of mild DKA on admission. Hyperglycemia improved with n.p.o. status. Lines and tubes: Right IJ triple-lumen placed by mt 01/10/2024 and left double-lumen dialysis catheter placed 01/10/2024. VTE prophylaxis: SCDs, start heparin twice daily CODE STATUS: Full Disposition: PCU status once electrolytes improved. Patient has completed hemodialysis sessions I have personally spent 39 minutes of critical care time in the direct management of this patient. This is a life/limb threatening event. This includes time spent evaluating patient, direct bedside care, chart review, placing orders, interpretation of diagnostic studies, discussion with consultants, patient, and family members, as well as other required patient management activities. This time is exclusive of all separately billable procedures, and teaching time and separate from and in addition to any other critical care service time. Thank you for allowing us to participate in the care of this patient. Admission and Anticipated Discharge Date Admission Date: January 10, 2024 Subjective Patient more awake and alert today. Still remains lethargic. NG tube with minimal output. Not requiring any vasopressor support. Completed first HD session yesterday evening. Electrolytes and creatinine improved. 200 cc of urine output overnight. Review of Systems Review of Systems: All systems reviewed & are unremarkable except as noted in HPI & below Physical Exam Physical Exam: Constitutional: Patient appears to be of their stated age. Patient in mild distress. Eyes: Pupils are equal round and reactive to light. Conjunctivae are normal. Anicteric sclera. Ears nose, mouth and throat: Mallampati class 2. Normal posterior oropharynx. Uvula is midline. Neck: Trachea is midline. Visual inspection is normal. Respiratory: Clear to auscultation bilaterally. No significant tachypnea or increased work of breathing. Cardiovascular: Regular rate and rhythm. No murmurs. No edema. Gastrointestinal: Normal bowel sounds, soft, nontender and nondistended. No hepatosplenomegaly noted. NG tube in place. Musculoskeletal: No cyanosis. Patient is able to move all extremities. Strength is 5 out of 5 in the upper and lower extremities. Skin: No rashes, warm dry and intact. Neurologic: No obvious focal neurological deficits seen. Myoclonic jerking improving. Psychiatric: Alert and oriented x 3. Results & Data Results & Data Vital Signs (Past 12 Hours) Vital Signs Temp Pulse Resp BP BP Pulse Ox 01/11/24 10:15 67 17 96 01/11/24 10:09 61 13 96 01/11/24 10:00 134/78 01/11/24 09:45 67 15 97 01/11/24 09:33 71 15 96 01/11/24 09:27 69 13 96 01/11/24 09:00 138/78 01/11/24 09:00 138/78 01/11/24 08:54 81 37 H 92 01/11/24 08:45 72 16 95 01/11/24 08:39 67 16 96 01/11/24 08:18 65 16 95 01/11/24 08:03 37.0 C 68 13 94 01/11/24 08:00 122/70 01/11/24 08:00 69 01/11/24 07:51 68 14 96 01/11/24 07:45 72 16 94 01/11/24 07:30 37.1 C 69 14 96 01/11/24 07:15 78 12 95 01/11/24 07:00 131/71 01/11/24 06:45 72 16 95 01/11/24 06:18 68 16 98 01/11/24 06:03 70 18 97 01/11/24 06:00 134/79 01/11/24 06:00 134/79 01/11/24 06:00 134/79 01/11/24 05:36 82 15 98 01/11/24 05:30 72 13 98 01/11/24 05:21 72 14 97 01/11/24 05:09 70 17 96 01/11/24 04:57 71 15 94 01/11/24 04:33 73 10 L 97 01/11/24 04:15 75 15 96 01/11/24 04:00 71 17 95 01/11/24 03:45 77 16 96 01/11/24 03:39 82 17 96 01/11/24 03:00 117/68 01/11/24 03:00 79 15 93 01/11/24 02:51 78 14 95 01/11/24 02:42 77 17 93 01/11/24 02:00 103/64 01/11/24 02:00 103/64 01/11/24 01:54 78 18 89 L 01/11/24 01:33 84 19 96 01/11/24 01:00 80 18 90 01/11/24 01:00 123/69 01/11/24 01:00 123/69 01/11/24 00:54 78 16 89 L 01/11/24 00:30 84 10 L 98 01/11/24 00:15 80 16 90 01/11/24 00:03 79 18 93 01/11/24 00:00 124/65 01/10/24 23:57 81 16 94 01/10/24 23:45 88 18 96 01/10/24 23:30 83 19 91 01/10/24 23:27 82 17 96 Coding Level of Care Code 93006 CRITICAL CARE 1ST 30-74M Diagnoses Lactic acidosis E87.20 Gastric outlet obstruction K31.1 Nausea and vomiting, unspecified vomiting type R11.2 Vomiting type: unspecified Opiate dependence F11.20 RODRIGO (acute kidney injury) N17.9 Hypokalemia due to excessive gastrointestinal loss of potassium E87.6 Hypomagnesemia E83.42 (3) Nausea & vomiting Vomiting type: unspecified Qualified Code(s): R11.2 - Nausea with vomiting, unspecified
--- NOTE | 2024-01-11 12:58 | Hospitalist Progress Note ---
Date of Service January 11, 2024 Assessment & Plan (1) Gastric outlet obstruction: Plan: Presented with history of nausea and vomiting x 5 days. On presentation, patient was found to have significant electrolyte abnormalities including hypokalemia, hypocalcemia, lactic acidosis, and acute renal injury. - Admitted to ICU given profound lactic acidosis, uremia, severe RODRIGO and severe electrolyte derangements, brick grader following > Right IJ central line placed by ICU 01/09 for electrolyte replacement - Delirium on admission secondary to uremia. Improved after dialysis. Continue to avoid sedating medications - Gastric outlet obstruction > CT A/P on admission showed a significantly dilated stomach, normal small bowel, and collapsed colon. No obvious sign of ischemic bowel on CT per report - GI consulted, following > Suspect multifactorial related to diabetic gastroparesis, possible Ozempic- induced gastroenteritis, aggravated by electrolyte abnormalities / acute renal failure > NG tube placed 01/09 and removed 01/10 > If patient remains stable after NG tube removal, start clear liquid diet > Once clinically improved could reassess gastric emptying and rule out any luminal pathology. - General surgery consulted, following > Doubt the gastric outlet obstruction is surgical issue, continue IV fluids and correction of electrolyte abnormalities - Continue empiric Zosyn x 48 hours > Follow-up blood cultures. Currently pending > If patient remains afebrile and leukocytosis downtrends, discontinue antibiotics (2) RODRIGO (acute kidney injury): Plan: Severe RODRIGO likely due to volume depletion. No urinary tract obstruction noted on imaging. Baseline creatinine ~1.1 - RODRIGO consistent with prerenal physiology plus ATN. UA 2+ protein, few RBC plus hyaline cast. Jenkins placed with minimal UOP - Left IJ HD placed by ICU 01/09 > Received HD 01/09 with 0 UF - Nephrology consulted > Oligoanuric RODRIGO due to dehydration. Patient likely has suffered dense ATN > Keep Jenkins catheter in place. Urine output remains decreased > Will provide HD today for continued urea clearance > Continue gentle hydration with IV LR at 80 cc/h - Severe acidosis improving with HD and IVF resuscitation - Suspect lactic acidosis was due to profound hypovolemia and possibly metformin use - Continue to replace electrolytes aggressively including potassium and magnesium - Continue to renally dose medications and avoid all nephrotoxic medications (3) DM2 (diabetes mellitus, type 2): Plan: Evidence of mild DKA on admission - Hyperglycemia has improved with NPO status - SSI ordered, adjust as appropriate - Goal BSG Range: Low 110 mg/dL, High 140mg/dL - Correction Factor: 50 mg/dL/unit - Carbohydrate ratio = None - BSGs ACHS if eating, q6h if npo - Hold insulin if potassium is < 3 (4) Elevated troponin: Plan: Elevated troponin and somewhat abnormal EKG on admission - Troponin peaked at 126.6 - Elevated troponin is likely due to demand ischemia in setting of acute renal failure - EKG showed increased QTc compared to prior - Obtain EKG with any occurrence of chest pain (5) Elevated lactic acid level: Plan: Lactate of 11.9 on admission, downtrended and WNL at 1.6 on 01/10 Plan Chronic Issues: - Hypertension, hyperlipidemia -- we will have to hold all of his medications for right now - History of opioid use/abuse -- for right now we will have to hold his buprenorphine; will have to monitor for signs of withdrawal DVT prophylaxis -- SCDs, heparin twice daily CODE STATUS -- full code Admission and Anticipated Discharge Date Admission Date: January 10, 2024 Subjective Patient seen and evaluated at bedside in ICU. He just had his NG tube removed. He is awake alert and oriented x 4, though lethargic. He reports he "feels like I am coming out of a haze." He denies any nausea, vomiting, abdominal pain, fever, chills, shortness of breath, difficulty breathing, chest pain, or lightheadedness. Physical Exam Physical Exam: General: Awake, A&O x4, no acute distress. Skin: The skin was warm, dry, without rashes, erythema, edema, or bruising. Cardiac: Regular rate and rhythm without murmurs gallops or rubs. Pulm: Clear to auscultation bilaterally without wheezes, rales or rhonchi. No retractions or accessory muscle use. 96% on room air. Abdominal: Soft, nontender, nondistended. Bowel sounds present. Neuro: No focal neurological deficits. Able to move all extremities. Results & Data Results & Data Vital Signs (Past 12 Hours) Vital Signs Temp Pulse Resp BP BP Pulse Ox 01/11/24 10:15 67 17 96 01/11/24 10:09 61 13 96 01/11/24 10:00 134/78 01/11/24 09:45 67 15 97 01/11/24 09:33 71 15 96 01/11/24 09:27 69 13 96 01/11/24 09:00 138/78 01/11/24 09:00 138/78 01/11/24 08:54 81 37 H 92 01/11/24 08:45 72 16 95 01/11/24 08:39 67 16 96 01/11/24 08:18 65 16 95 01/11/24 08:03 98.6 F 68 13 94 01/11/24 08:00 122/70 01/11/24 08:00 69 01/11/24 07:51 68 14 96 01/11/24 07:45 72 16 94 01/11/24 07:30 98.8 F 69 14 96 01/11/24 07:15 78 12 95 01/11/24 07:00 131/71 01/11/24 06:45 72 16 95 01/11/24 06:18 68 16 98 01/11/24 06:03 70 18 97 01/11/24 06:00 134/79 01/11/24 06:00 134/79 01/11/24 06:00 134/79 01/11/24 05:36 82 15 98 01/11/24 05:30 72 13 98 01/11/24 05:21 72 14 97 01/11/24 05:09 70 17 96 01/11/24 04:57 71 15 94 01/11/24 04:33 73 10 L 97 01/11/24 04:15 75 15 96 01/11/24 04:00 71 17 95 01/11/24 03:45 77 16 96 01/11/24 03:39 82 17 96 01/11/24 03:00 117/68 01/11/24 03:00 79 15 93 01/11/24 02:51 78 14 95 01/11/24 02:42 77 17 93 01/11/24 02:00 103/64 01/11/24 02:00 103/64 01/11/24 01:54 78 18 89 L 01/11/24 01:33 84 19 96 01/11/24 01:00 80 18 90 01/11/24 01:00 123/69 01/11/24 01:00 123/69 01/11/24 00:54 78 16 89 L Laboratory Results Reviewed CBC - overall unremarkable; mild anemia at baseline exacerbated by hemodilution Reviewed chemistries - electrolytes improving, BUN and creatinine increased Reviewed UA PG Care Time/CCT Total # of Minutes Spent Total Time Spent with Patient: Total time spent is greater than 50% in coordination of care (as documented) at patient's floor/unit and/or counseling patient: Coding Level of Care Code 66880 SUB INP/OBS CARE 2/35MIN Diagnoses Gastric outlet obstruction K31.1 RODRIGO (acute kidney injury) N17.9 DM2 (diabetes mellitus, type 2) E11.9 Elevated troponin R79.89 Elevated lactic acid level R79.89
[2024-01-11 14:50] LABS: BUN Creatinine Ratio 6.8 (10-20); Calcium 6.9 mg/dl (8.6-10.3); Creatinine Clr Calc Pharmacy 13.3 ml/min; Magnesium 2.2 mg/dl (1.7-2.4); Phosphorus 3.8 mg/dl (2.5-4.9); Potassium 3.3 mmol/L (3.5-5.1)
[2024-01-11] MEDS: HEPARIN SOD (PORCINE) 1000 UNIT/ML IV ONE (15:44)
[2024-01-11] MEDS: EPOETIN ALFA 10,000 UNITS/ML VIAL IV SCH (16:05)
[2024-01-11] MEDS: HEPARIN SOD (PORCINE) 1000 UNIT/ML IV SCH (16:18)
[2024-01-11] MEDS ORDERED: HEPARIN SOD 5,000 UNIT/0.5 ML VIAL SQ SCH (21:00)
[2024-01-12 03:02] LABS: BUN Creatinine Ratio 6.1 (10-20); Bilirubin Direct 0.2 mg/dl (0-0.2); Bilirubin,Total 0.7 mg/dl (0.2-1.0); Calcium 7.4 mg/dl (8.6-10.3); Creatinine Clr Calc Pharmacy 18.2 ml/min; Potassium 2.9 mmol/L (3.5-5.1)
[2024-01-12] MEDS: POTASSIUM CHLORIDE CRTAB 20 MEQ TABCR PO ONE (03:48)
[2024-01-12] MEDS: POTASSIUM CHLORIDE / WTR 10 MEQ/100 ML PLCT IV SCH (04:04)
--- NOTE | 2024-01-12 09:06 | Nephrology Progress Note ---
Date of Service January 12, 2024 Assessment & Plan (1) RODRIGO (acute kidney injury): Plan: * Oliguric RODRIGO due to dehydration. Patient has suffered dense ATN. * High anion gap metabolic acidosis due to RODRIGO/metformin therapy - resolved following HD * Keep Jenkins catheter in place * Patient had 2nd HD tx yesterday for 3 hours with 0 UF * Creatinine improved to 5.5 postdialysis. Patient is now non-oliguric. Urine output improved to 675 cc last 24 hours * Hold IVF. 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 Baseline creatinine 1.1 mg/dL in July 2023. MACR ~300 mcg/mg. (5) DM2 (diabetes mellitus, type 2): Plan: * Metformin and semaglutide held. Admission and Anticipated Discharge Date Admission Date: January 10, 2024 Subjective Mr. Valadez was evaluated in the PCU this morning. He sitting up in bed and able to answer questions appropriately. He denied fever, angina, dyspnea or abdominal discomfort. Mr. Valadez reports that he is drinking water and semaj coleman. Jenkins catheter remains in place draining clear yellow urine. Review of Systems Constitutional: no fever Eyes: no problem reported Ear, Nose, Mouth, Throat: no problem reported Respiratory: no cough and no dyspnea Cardiovascular: no chest pain Gastrointestinal: no abdominal pain Physical Exam Constitutional: not in distress Eyes: PERRL, conjunctivae normal, anicteric sclerae Neck: trachea midline, no thyromegaly Respiratory: normal respiratory effort, lungs clear to auscultation Cardiovascular: RRR, no murmur, no edema Gastrointestinal (Abdomen): Inspection/Auscultation: + hypoactive bowel sounds Percussion/Palpation: abdomen nontender and no guarding Musculoskeletal: Extremities: no cyanosis and no clubbing Skin: no rashes, warm and dry Neurologic: Speech / Cognition: normal speech and normal cognition Results & Data Vital Signs (Past 12 Hours) Vital Signs Temp Pulse Pulse Resp BP Pulse Ox Pulse Ox 01/12/24 07:17 36.8 C 64 17 136/82 96 01/12/24 03:01 37.2 C 65 18 153/74 H 97 01/11/24 23:13 71 01/11/24 22:48 36.9 C 69 18 138/80 97 01/11/24 22:40 66 01/11/24 22:35 93 O2 Del Method O2 Del Method 01/12/24 07:17 Room Air 01/12/24 03:01 Room Air 01/11/24 23:13 01/11/24 22:48 Room Air 01/11/24 22:40 01/11/24 22:35 Room Air Laboratory Results Laboratory Results - last 24 hr 01/11/24 01/11/24 01/11/24 11:32 11:56 11:57 Sodium Potassium Chloride Carbon Dioxide Anion Gap BUN Creatinine Est Cr Clr Drug Dosing eGFR BUN/Creatinine Ratio Glucose POC Glucose 166 H 189 H Lactate 1.6 Calcium Phosphorus Magnesium Total Bilirubin Direct Bilirubin AST ALT Alkaline Phosphatase Total Protein Albumin Urine Color Urine Appearance Urine pH Ur Specific [place] Urine Protein Urine Glucose (UA) Urine Ketones Urine Blood Urine Nitrite Urine Bilirubin Urine Urobilinogen Ur Leukocyte Esterase Urine WBC (Auto) Urine RBC (Auto) U Hyaline Cast (Auto) U Epithel Cells (Auto) Urine Bacteria (Auto) Granular Casts Waxy Casts 01/11/24 01/11/24 01/11/24 14:23 18:26 19:46 Sodium 136 Potassium 3.3 L Chloride 101 Carbon Dioxide 24 Anion Gap 11 BUN 49 H Creatinine 7.16 H* D Est Cr Clr Drug Dosing 13.3 eGFR 8.86 BUN/Creatinine Ratio 6.8 L Glucose 170 H POC Glucose 108 H 243 H Lactate Calcium 6.9 L Phosphorus 3.8 Magnesium 2.2 Total Bilirubin Direct Bilirubin AST ALT Alkaline Phosphatase Total Protein Albumin Urine Color Urine Appearance Urine pH Ur Specific [place] Urine Protein Urine Glucose (UA) Urine Ketones Urine Blood Urine Nitrite Urine Bilirubin Urine Urobilinogen Ur Leukocyte Esterase Urine WBC (Auto) Urine RBC (Auto) U Hyaline Cast (Auto) U Epithel Cells (Auto) Urine Bacteria (Auto) Granular Casts Waxy Casts 01/11/24 01/12/24 01/12/24 Unknown 00:55 02:04 Sodium 139 Potassium 2.9 L Chloride 107 Carbon Dioxide 24 Anion Gap 8 BUN 32 H Creatinine 5.24 H* D Est Cr Clr Drug Dosing 18.2 eGFR 12.88 BUN/Creatinine Ratio 6.1 L Glucose 126 H POC Glucose 162 H Lactate Calcium 7.4 L Phosphorus Magnesium Total Bilirubin 0.7 Direct Bilirubin 0.2 AST 27 ALT 13 Alkaline Phosphatase 45 Total Protein 5.0 L D Albumin 3.0 L Urine Color Yellow Urine Appearance Cloudy A Urine pH 5.5 Ur Specific [place] 1.007 Urine Protein 2+ H Urine Glucose (UA) Negative Urine Ketones Negative Urine Blood 3+ H Urine Nitrite Negative Urine Bilirubin Negative Urine Urobilinogen Negative Ur Leukocyte Esterase 2+ H Urine WBC (Auto) 21-50 H Urine RBC (Auto) 6-10 H U Hyaline Cast (Auto) 6-10 H U Epithel Cells (Auto) 0-2 Urine Bacteria (Auto) 1+ H Granular Casts Present A Waxy Casts Present A 01/12/24 06:45 Sodium Potassium Chloride Carbon Dioxide Anion Gap BUN Creatinine Est Cr Clr Drug Dosing eGFR BUN/Creatinine Ratio Glucose POC Glucose 157 H Lactate Calcium Phosphorus Magnesium Total Bilirubin Direct Bilirubin AST ALT Alkaline Phosphatase Total Protein Albumin Urine Color Urine Appearance Urine pH Ur Specific [place] Urine Protein Urine Glucose (UA) Urine Ketones Urine Blood Urine Nitrite Urine Bilirubin Urine Urobilinogen Ur Leukocyte Esterase Urine WBC (Auto) Urine RBC (Auto) U Hyaline Cast (Auto) U Epithel Cells (Auto) Urine Bacteria (Auto) Granular Casts Waxy Casts PG Care Time/CCT Total # of Minutes Spent Total Time Spent with Patient: Total time spent is greater than 50% in coordination of care (as documented) at patient's floor/unit and/or counseling patient: Coding Level of Care Code 20027 SUB INP/OBS CARE 3/50MIN Diagnoses RODRIGO (acute kidney injury) N17.9 Hypokalemia E87.6 Lactic acidosis E87.20 Diabetic nephropathy associated with type 2 diabetes mellitus E11.21 Diabetes mellitus type: type 2 DM2 (diabetes mellitus, type 2) E11.9 (4) Diabetic nephropathy Diabetes mellitus type: type 2 Qualified Code(s): E11.21 - Type 2 diabetes mellitus with diabetic nephropathy
[2024-01-12 09:36] LABS: Hemoglobin 8.4 g/dl (14.0-18.0); Mean Corpuscular Hemoglobin 25.9 pg (25.0-34.0); Mean Corpuscular Hgb Conc 33.6 g/dL (32.0-36.0); Mean Corpuscular Volume 77.2 fL (80.0-100.0); Mean Platelet Volume 10.1 fL (9.4-12.4); Platelet Count 145 K/uL (130-400); RDW Coefficient of Variation 14.6 % (11.5-14.5); RDW Standard Deviation 40.7 fL (36.4-46.3); Red Blood Count 3.24 M/uL (4.70-6.10); White Blood Count 5.84 K/ul (4.8-10.8)
[2024-01-12 09:41] LABS: BUN Creatinine Ratio 6.5 (10-20); Creatinine Clr Calc Pharmacy 17.1 ml/min; Potassium 3.2 mmol/L (3.5-5.1)
--- NOTE | 2024-01-12 09:58 | XCELERA ---
[id number] [id number]
[2024-01-12 10:12] LABS: Magnesium 1.9 mg/dl (1.7-2.4)
--- NOTE | 2024-01-12 10:25 | Surgery Progress Note ---
Date of Service January 12, 2024 Assessment & Plan (1) Gastric outlet obstruction: Plan: much improved no indication for surgical intervention will sign off. please call if any concerns or questions. (2) Renal failure, acute: Admission and Anticipated Discharge Date Admission Date: January 10, 2024 Subjective pt seen. awake/alert. currently no complaints. adelina liquids. no n/v since ngt removed Physical Exam Constitutional: WD/WN, vitals as above no acute distress and not ill appearing Eyes: PERRL, conjunctivae normal, anicteric sclerae EOM intact bilaterally ENMT: external ear and nose normal, oropharynx normal Ears: no hearing impairment Neck: trachea midline, no thyromegaly Respiratory: normal respiratory effort; no respiratory distress and does not use accessory muscles Cardiovascular: Rate/Rhythm: regular rate and regular rhythm Gastrointestinal (Abdomen): normal bowel sounds, soft, nontender, no hepatosplenomegaly Skin: no rashes, warm and dry Psychiatric: Orientation: alert, oriented x 3 and cooperative Results & Data Vital Signs (Past 12 Hours) Vital Signs Temp Pulse Pulse Resp BP Pulse Ox Pulse Ox 01/12/24 07:17 36.8 C 64 17 136/82 96 01/12/24 03:01 37.2 C 65 18 153/74 H 97 01/11/24 23:13 71 01/11/24 22:48 36.9 C 69 18 138/80 97 01/11/24 22:40 66 01/11/24 22:35 93 O2 Del Method O2 Del Method 01/12/24 07:17 Room Air 01/12/24 03:01 Room Air 01/11/24 23:13 01/11/24 22:48 Room Air 01/11/24 22:40 01/11/24 22:35 Room Air PG Care Time/CCT Total # of Minutes Spent Total Time Spent with Patient: Total time spent is greater than 50% in coordination of care (as documented) at patient's floor/unit and/or counseling patient: Coding Level of Care Code 87165 SUB INP/OBS CARE 04/11MIN Diagnoses Gastric outlet obstruction K31.1 Renal failure, acute N17.9
[2024-01-12] MEDS ORDERED: POTASSIUM CHLORIDE CRTAB 20 MEQ TABCR PO STA (10:29)
[2024-01-12] MEDS: POTASSIUM CHLORIDE CRTAB 20 MEQ TABCR PO STA ×2 (11:10→18:48)
--- NOTE | 2024-01-12 11:13 | Hospitalist Progress Note ---
Date of Service January 12, 2024 Assessment & Plan (1) Gastric outlet obstruction: Plan: Presented with history of nausea and vomiting x 5 days. On presentation, patient was found to have significant electrolyte abnormalities including hypokalemia, hypocalcemia, lactic acidosis, and acute renal injury. - Admitted to ICU given profound lactic acidosis, uremia, severe RODRIGO and severe electrolyte derangements, pan puller following > Right IJ central line placed by ICU 01/09 for electrolyte replacement - Delirium on admission secondary to uremia. Improved after dialysis. Continue to avoid sedating medications - Gastric outlet obstruction > CT A/P on admission showed a significantly dilated stomach, normal small bowel, and collapsed colon. No obvious sign of ischemic bowel on CT per report - GI consulted, following > Suspect multifactorial related to diabetic gastroparesis, possible Ozempic- induced gastroenteritis, aggravated by electrolyte abnormalities / acute renal failure > NG tube placed 01/09 and removed 01/10 > Once clinically improved could reassess gastric emptying and rule out any luminal pathology. - General surgery consulted, following > Doubt the gastric outlet obstruction is surgical issue, continue IV fluids and correction of electrolyte abnormalities - Continue empiric Zosyn x 48 hours > Preliminary blood cultures negative x 24 hours > Patient has remained afebrile and leukocytosis downtrends, antibiotics discontinued 01/11 - Diet advanced to full liquids. If continues to well-tolerate, advance to low fiber for breakfast 01/12 (2) RODRIGO (acute kidney injury): Plan: Severe RODRIGO likely due to volume depletion. No urinary tract obstruction noted on imaging. Baseline creatinine ~1.1 - RODRIGO consistent with prerenal physiology plus ATN. UA 2+ protein, few RBC plus hyaline cast. - Maintain Jenkins catheter - now non-oliguric, OUP improving - Left IJ HD placed by ICU 01/09 > Received HD 01/09 with 0 UF, second treatment on 01/10 with 0 UF - Nephrology consulted > Oligoanuric RODRIGO due to dehydration. Patient likely has suffered dense ATN > Keep Jenkins catheter in place. Urine output remains decreased > Will provide HD today for continued urea clearance > Continue gentle hydration with IV LR at 80 cc/h - Severe acidosis improving with HD and IVF resuscitation - Suspect lactic acidosis was due to profound hypovolemia and possibly metformin use - Continue to replace electrolytes aggressively including potassium (goal: 4.0) and magnesium (goal: 2.0) > Mag stable at 1.9 > Refractory hypokalemia with K of 3.2, repleted with 60 meq of KCl, repeat K 3.5 --> additional 40 meq given, recheck with AM labs - Continue to renally dose medications and avoid all nephrotoxic medications (3) DM2 (diabetes mellitus, type 2): Plan: Evidence of mild DKA on admission - Hyperglycemia has improved with NPO status - SSI ordered, adjust as appropriate - Goal BSG Range: Low 110 mg/dL, High 140mg/dL - Correction Factor: 50 mg/dL/unit - Carbohydrate ratio = None - BSGs ACHS if eating, q6h if npo - Hold insulin if potassium is < 3 (4) Elevated troponin: Plan: Elevated troponin and somewhat abnormal EKG on admission - Troponin peaked at 126.6 - Elevated troponin is likely due to demand ischemia in setting of acute renal failure - EKG showed increased QTc compared to prior - Obtain EKG with any occurrence of chest pain - Overnight 01/11, patient had 12 beat run of V tach then converted back to NSR - Echo revealed EF 50-55%, right ventricular systolic pressure elevated at 30-40 mmHg, normal diastolic function, no significant valvular heart disease - Started metoprolol 12.5 mg BID (5) Elevated lactic acid level: Plan: Lactate of 11.9 on admission, downtrended and WNL at 1.6 on 01/10 Plan Repleted potassium Ordered nicotine patch Resumed statin Reviewed telemetry events Ordered echo Started metoprolol Chronic Issues: - Hyperlipidemia - continue rosuvastatin 40 mg - History of opioid use/abuse -- per patient, he does not take the medication; monitor for signs of withdrawal DVT prophylaxis -- SCDs, heparin twice daily CODE STATUS -- full code Admission and Anticipated Discharge Date Admission Date: January 10, 2024 Subjective Patient seen and evaluated at bedside in PCU. He reports still feeling "in a haze." He reports some generalized aches which he attributes to his hospital bed. Otherwise, he denies any acute complaints. He denies fever, chills, body/joint aches, nausea, vomiting, abdominal pain, chest pain, palpitations, shortness of breath, lightheadedness, or dizziness. He reports he has been w ell-tolerating his clear liquid diet so far and asked for further advancement. We discussed his ongoing treatment course. All questions addressed and answered. No additional complaints or concerns at this time. Physical Exam Physical Exam: General: Awake, A&O x4, no acute distress. Skin: The skin was warm, dry, without rashes, erythema, edema, or bruising. Cardiac: Regular rate and rhythm without murmurs gallops or rubs. Pulm: Clear to auscultation bilaterally without wheezes, rales or rhonchi. No respiratory distress. 99% on room air. Abdominal: Soft, nontender, nondistended. Bowel sounds present. Neuro: No focal neurological deficits. Able to move all extremities. Results & Data Results & Data Vital Signs (Past 12 Hours) Vital Signs Temp Pulse Pulse Resp BP Pulse Ox O2 Del Method 01/12/24 10:31 97.9 F 63 16 160/95 H 98 Room Air 01/12/24 07:17 98.2 F 64 17 136/82 96 Room Air 01/12/24 03:01 99.0 F 65 18 153/74 H 97 Room Air 01/11/24 23:13 71 Laboratory Results Reviewed CBC Reviewed BMP Reviewed blood cultures Diagnostic Findings Reviewed echocardiogram Interpretation summary Left ventricular systolic function is normal. Right ventricular systolic pressure is elevated at 30-40 mmHg. Borderline aortic root dilation. The inferior vena cava is mildly dilated. No significant valvular heart disease. PG Care Time/CCT Total # of Minutes Spent Total Time Spent with Patient: Total time spent is greater than 50% in coordination of care (as documented) at patient's floor/unit and/or counseling patient: Coding Level of Care Code 90721 SUB INP/OBS CARE 3/50MIN Diagnoses Gastric outlet obstruction K31.1 RODRIGO (acute kidney injury) N17.9 DM2 (diabetes mellitus, type 2) E11.9 Elevated troponin R79.89 Elevated lactic acid level R79.89
--- NOTE | 2024-01-12 12:10 | Gastroenterology Progress Note ---
Date of Service January 12, 2024 Assessment & Plan (1) Vomiting: Plan: Symptoms are improving. Likely etiology is metabolic, acute renal failure, medications (Ozempic) possible underlying diabetic gastroparesis. Recommend to advance diet. Admission and Anticipated Discharge Date Admission Date: January 10, 2024 Subjective Patient is improving. NG tube was removed. Tolerates liquid diet. Still complains of epigastric fullness but has no vomiting. Hemoglobin 8.4, creatinine improved to 5.5. Review of Systems Review of Systems: Constitutional: Denies weight loss, chills, fever, fatigue. Respiratory: Denies cough, denies shortness of breath. Cardiovascular: Denies chest pain and palpitations. Gastrointestinal: Denies nausea, vomiting, diarrhea, constipation, abdominal pain. Complains of epigastric fullness. Physical Exam Physical Exam: Constitutional: WD/WN, vitals as above Respiratory: normal respiratory effort, lungs clear to auscultation Cardiovascular: RRR, no murmur, no edema Gastrointestinal (Abdomen): normal bowel sounds, soft, nontender, no hepatosplenomegaly. Neurological: Oriented x 3, grossly no focal abnormalities, speech is intact. Results & Data Results & Data Vital Signs (Past 12 Hours) Vital Signs Temp Pulse Resp BP Pulse Ox O2 Del Method 01/12/24 10:31 36.6 C 63 16 160/95 H 98 Room Air 01/12/24 07:17 36.8 C 64 17 136/82 96 Room Air 01/12/24 03:01 37.2 C 65 18 153/74 H 97 Room Air PG Care Time/CCT Total # of Minutes Spent Total Time Spent with Patient: Total time spent is greater than 50% in coordination of care (as documented) at patient's floor/unit and/or counseling patient: Coding Level of Care Code 80460 SUB INP/OBS CARE 2/35MIN Diagnoses Vomiting R11.2 Nausea presence: with nausea Vomiting type: unspecified (1) Vomiting Nausea presence: with nausea Vomiting type: unspecified Qualified Code(s): R11.2 - Nausea with vomiting, unspecified
[2024-01-12] MEDS: NICOTINE 14 MG/24 HR PATCH TD SCH (13:45)
[2024-01-12] MEDS: METOPROLOL TARTRATE 25 MG TAB PO SCH (14:46)
[2024-01-12] MEDS: INSULIN ASPART PER UNIT CHARGE SC SCH (17:40)
[2024-01-12] MEDS: MELATONIN 3 MG TAB PO PRN (22:29)
[2024-01-12] MEDS: ONDANSETRON INJ 2 MG/ML 2 ML VIAL IV PRN (23:56)
[2024-01-12] MEDS: ACETAMINOPHEN 325 MG TAB PO PRN (23:59)
[2024-01-13 07:15] LABS: Hematocrit (blood only) 25.3 % (42.0-52.0); Hemoglobin 8.4 g/dl (14.0-18.0); Mean Corpuscular Hemoglobin 26.1 pg (25.0-34.0); Mean Corpuscular Hgb Conc 33.2 g/dL (32.0-36.0); Mean Corpuscular Volume 78.6 fL (80.0-100.0); Platelet Count 151 K/uL (130-400); RDW Coefficient of Variation 14.7 % (11.5-14.5); RDW Standard Deviation 42.2 fL (36.4-46.3); Red Blood Count 3.22 M/uL (4.70-6.10); White Blood Count 5.52 K/ul (4.8-10.8)
[2024-01-13 07:41] LABS: BUN Creatinine Ratio 6.4 (10-20); Calcium 7.3 mg/dl (8.6-10.3); Creatinine Clr Calc Pharmacy 13.8 ml/min; Potassium 3.5 mmol/L (3.5-5.1)
[2024-01-13] MEDS: ROSUVASTATIN CALCIUM 20 MG TAB PO SCH (07:57)
--- NOTE | 2024-01-13 08:38 | Hospitalist Progress Note ---
Date of Service January 13, 2024 Assessment & Plan (1) Gastric outlet obstruction: Plan: Presented with history of nausea and vomiting x 5 days. On presentation, patient was found to have significant electrolyte abnormalities including hypokalemia, hypocalcemia, lactic acidosis, and acute renal injury. - Admitted to ICU given profound lactic acidosis, uremia, severe RODRIGO and severe electrolyte derangements > Right IJ central line placed by ICU 01/09 for electrolyte replacement - Downgraded to PCU - Gastric outlet obstruction > CT A/P on admission showed a significantly dilated stomach, normal small bowel, and collapsed colon. No obvious sign of ischemic bowel on CT per report - GI consulted, following > Suspect multifactorial related to diabetic gastroparesis, possible Ozempic- induced gastroenteritis, aggravated by electrolyte abnormalities / acute renal failure > NG tube placed 01/09 and removed 01/10 > Once clinically improved could reassess gastric emptying and rule out any luminal pathology. - General surgery consulted, following > Doubt the gastric outlet obstruction is surgical issue, continue IV fluids and correction of electrolyte abnormalities - Treated with empiric Zosyn x 48 hours, now discontinued > Preliminary blood cultures negative x 48 hours. Remains afebrile without leukocytosis - Diet advanced to low fiber (2) RODRIGO (acute kidney injury): Plan: Severe RODRIGO likely due to volume depletion. No urinary tract obstruction noted on imaging. Baseline creatinine ~1.1 - RODRIGO consistent with prerenal physiology plus ATN. UA 2+ protein, few RBC plus hyaline cast. - Suspect lactic acidosis was due to profound hypovolemia and possibly metformin use; resolved with HD and IVF resuscitation - Left IJ HD placed by ICU 01/09 > Received HD 01/09 with 0 UF, second treatment on 01/10 with 0 UF > Keep in place for now per nephrology's recommendation - Nephrology consulted > Oligoanuric RODRIGO due to dehydration. Patient likely has suffered dense ATN > IV fluids discontinued, encourage oral hydration > Although creatinine increased off HD, patient is non-oliguric now and volume status/electrolyte balance are acceptable > Jenkins catheter removed 01/12 - Continue to replace electrolytes aggressively including potassium (goal: 4.0) and magnesium (goal: 2.0) > Mag stable at 1.9 > Refractory hypokalemia with K of 3.2, repleted with 60 meq of KCl, repeat K 3.5 --> additional 40 meq given, K remains at 3.5 - Monitor strict I&O - Continue to renally dose medications and avoid all nephrotoxic medications (3) DM2 (diabetes mellitus, type 2): Plan: Evidence of mild DKA on admission - SSI ordered, adjust as appropriate - Goal BSG Range: Low 110 mg/dL, High 140mg/dL - Correction Factor: 50 mg/dL/unit - Carbohydrate ratio = None - BSGs ACHS if eating, q6h if npo - Hold insulin if potassium is < 3 (4) Elevated troponin: Plan: Elevated troponin and somewhat abnormal EKG on admission - Troponin peaked at 126.6 - Elevated troponin is likely due to demand ischemia in setting of acute renal failure - EKG showed increased QTc compared to prior - Obtain EKG with any occurrence of chest pain - Overnight 01/11, patient had 12 beat run of V tach then converted back to NSR - Echo revealed EF 50-55%, right ventricular systolic pressure elevated at 30-40 mmHg, normal diastolic function, no significant valvular heart disease - Started/continue metoprolol 12.5 mg BID (5) Elevated lactic acid level: Plan: Lactate of 11.9 on admission, downtrended and WNL at 1.6 on 01/10 Plan Diet advanced to low fiber Chronic Issues: - Hyperlipidemia - continue rosuvastatin 40 mg - History of opioid use/abuse -- per patient, he does not take the medication; monitor for signs of withdrawal DVT prophylaxis -- SCDs, heparin twice daily CODE STATUS -- full code Admission and Anticipated Discharge Date Admission Date: January 10, 2024 Supervising Physician Co-Signing Physician Notes Attending Attestation - Chart reviewed, care plan d/w JAMES Smyth. I agree with the prakash components of her documentation. Appreciate nephrology assistance for RODRIGO. Hopeful for renal recovery despite recent need for HD. Darron Gaitan MD Subjective Patient seen and evaluated at bedside. He reports feeling more clear-headed today. He notes that he has been well-tolerating his low fiber diet so far. Denies nausea, vomiting, abdominal pain. He has had multiple bowel movements, notes his stools are loose. He had his Jenkins catheter removed, no problems since. He denies any chest pain, palpitations, shortness of breath, lightheadedness. He wants to get out of bed later today. No additional complaints or concerns at this time. Physical Exam Physical Exam: General: Awake, A&O x4, no acute distress. Skin: The skin was warm, dry, without rashes, erythema, edema, or bruising. Cardiac: Regular rate and rhythm without murmurs gallops or rubs. Pulm: Clear to auscultation bilaterally without wheezes, rales or rhonchi. No respiratory distress. 98% on room air. Abdominal: Soft, nontender, nondistended. Bowel sounds present. Neuro: No focal neurological deficits. Able to move all extremities. Results & Data Results & Data Vital Signs (Past 12 Hours) Vital Signs Temp Pulse Pulse Resp BP Pulse Ox O2 Del Method 01/13/24 07:51 98.1 F 66 20 136/81 98 Room Air 01/13/24 03:01 97.9 F 63 18 124/69 97 Room Air 01/13/24 00:00 65 01/12/24 22:34 98.2 F 68 18 149/85 H 98 Room Air Laboratory Results Reviewed CBC Reviewed BMP Reviewed blood cultures PG Care Time/CCT Total # of Minutes Spent Total Time Spent with Patient: Total time spent is greater than 50% in coordination of care (as documented) at patient's floor/unit and/or counseling patient: Coding Level of Care Code 46252 SUB INP/OBS CARE 2/35MIN Diagnoses Gastric outlet obstruction K31.1 RODRIGO (acute kidney injury) N17.9 DM2 (diabetes mellitus, type 2) E11.9 Elevated troponin R79.89 Elevated lactic acid level R79.89
--- NOTE | 2024-01-13 08:54 | Nephrology Progress Note ---
Date of Service January 13, 2024 Assessment & Plan (1) RODRIGO (acute kidney injury): Plan: * Oliguric RODRIGO due to dehydration. Patient has suffered dense ATN. * High anion gap metabolic acidosis due to RODRIGO/metformin therapy - resolved following HD * Although creatinine has risen off HD, patient is nonoliguric (UO 875 last 24 hrs) and volume status/electrolyte balance are acceptable * Will d/c Jenkins catheter * Keep L IJ temporary HD catheter in place * Encourage oral hydration * Monitor strict I&O, daily BMP (2) Hypokalemia: Plan: * Resolved. Will monitor (3) Lactic acidosis: Plan: * Metformin has been held (4) Diabetic nephropathy: Plan: * CKD I-II A2-3. Baseline creatinine 1.1 mg/dL in July 2023. MACR ~300 mcg/mg. (5) DM2 (diabetes mellitus, type 2): Plan: * Metformin and semaglutide held. (6) Weakness: Plan: * Encourage ambulation in hallway w/ assistance Admission and Anticipated Discharge Date Admission Date: January 10, 2024 Subjective Mr. Valadez was evaluated in his hospital room this morning. He reports tolerating small amounts of an oral diet and maintaining good oral hydration. Jenkins catheter remains in place draining clear yellow urine. Review of Systems Constitutional: no fever Eyes: no problem reported Ear, Nose, Mouth, Throat: no problem reported Respiratory: no cough and no dyspnea Cardiovascular: no chest pain Gastrointestinal: no abdominal pain Physical Exam Constitutional: not in distress Eyes: PERRL, conjunctivae normal, anicteric sclerae Neck: trachea midline, no thyromegaly Respiratory: normal respiratory effort, lungs clear to auscultation Cardiovascular: RRR, no murmur, no edema Gastrointestinal (Abdomen): Inspection/Auscultation: + abdomen distended and + hypoactive bowel sounds Percussion/Palpation: abdomen nontender and no guarding Musculoskeletal: Extremities: no cyanosis and no clubbing Skin: no rashes, warm and dry Neurologic: Speech / Cognition: normal speech and normal cognition Results & Data Vital Signs (Past 12 Hours) Vital Signs Temp Pulse Pulse Resp BP Pulse Ox O2 Del Method 01/13/24 07:51 36.7 C 66 20 136/81 98 Room Air 01/13/24 03:01 36.6 C 63 18 124/69 97 Room Air 01/13/24 00:00 65 01/12/24 22:34 36.8 C 68 18 149/85 H 98 Room Air Laboratory Results Abnormal Lab Results 01/12/24 01/12/24 01/12/24 09:00 11:42 15:25 WBC 5.84 RBC 3.24 L Hgb 8.4 L Hct 25.0 L MCV 77.2 L MCH 25.9 MCHC 33.6 RDW Std Deviation 40.7 RDW Coeff of Parveen 14.6 H Plt Count 145 MPV 10.1 Sodium 135 L Potassium 3.2 L 3.5 Chloride 104 Carbon Dioxide 21 Anion Gap 10 BUN 36 H Creatinine 5.55 H* D Est Cr Clr Drug Dosing 17.1 eGFR 12.02 BUN/Creatinine Ratio 6.5 L Glucose 290 H POC Glucose 245 H Calcium 7.0 L Magnesium 1.9 01/12/24 01/12/24 01/13/24 16:08 20:07 06:32 WBC 5.52 RBC 3.22 L Hgb 8.4 L Hct 25.3 L MCV 78.6 L MCH 26.1 MCHC 33.2 RDW Std Deviation 42.2 RDW Coeff of Parveen 14.7 H Plt Count 151 MPV 10.0 Sodium 137 Potassium 3.5 Chloride 107 Carbon Dioxide 22 Anion Gap 8 BUN 44 H Creatinine 6.85 H* D Est Cr Clr Drug Dosing 13.8 eGFR 9.34 BUN/Creatinine Ratio 6.4 L Glucose 139 H POC Glucose 182 H 208 H Calcium 7.3 L Magnesium 01/13/24 07:28 WBC RBC Hgb Hct MCV MCH MCHC RDW Std Deviation RDW Coeff of Parveen Plt Count MPV Sodium Potassium Chloride Carbon Dioxide Anion Gap BUN Creatinine Est Cr Clr Drug Dosing eGFR BUN/Creatinine Ratio Glucose POC Glucose 151 H Calcium Magnesium PG Care Time/CCT Total # of Minutes Spent Total Time Spent with Patient: Total time spent is greater than 50% in coordination of care (as documented) at patient's floor/unit and/or counseling patient: Coding Level of Care Code 79818 SUB INP/OBS CARE 3/50MIN Diagnoses RODRIGO (acute kidney injury) N17.9 Hypokalemia E87.6 Lactic acidosis E87.20 Diabetic nephropathy associated with type 2 diabetes mellitus E11.21 Diabetes mellitus type: type 2 DM2 (diabetes mellitus, type 2) E11.9 Weakness R53.1 (4) Diabetic nephropathy Diabetes mellitus type: type 2 Qualified Code(s): E11.21 - Type 2 diabetes mellitus with diabetic nephropathy
[2024-01-13] MEDS: PANTOprazole 40 MG TAB PO SCH (20:12)
[2024-01-14 07:26] LABS: Hematocrit (blood only) 24.4 % (42.0-52.0); Hemoglobin 8.2 g/dl (14.0-18.0); Mean Corpuscular Hemoglobin 26.4 pg (25.0-34.0); Mean Corpuscular Hgb Conc 33.6 g/dL (32.0-36.0); Mean Corpuscular Volume 78.5 fL (80.0-100.0); Mean Platelet Volume 10.1 fL (9.4-12.4); Platelet Count 154 K/uL (130-400); RDW Coefficient of Variation 14.7 % (11.5-14.5); RDW Standard Deviation 41.5 fL (36.4-46.3); Red Blood Count 3.11 M/uL (4.70-6.10); White Blood Count 5.54 K/ul (4.8-10.8)
[2024-01-14 07:38] LABS: BUN Creatinine Ratio 6.2 (10-20); Creatinine Clr Calc Pharmacy 10.2 ml/min; Potassium 3.2 mmol/L (3.5-5.1)
[2024-01-14] MEDS: POTASSIUM CHLORIDE CRTAB 20 MEQ TABCR PO STA (08:18)
--- NOTE | 2024-01-14 08:55 | Nephrology Progress Note ---
Date of Service January 14, 2024 Assessment & Plan (1) RODRIGO (acute kidney injury): Plan: * Oliguric RODRIGO due to dehydration. Patient has suffered dense ATN. * High anion gap metabolic acidosis due to RODRIGO/metformin therapy - resolved following HD * Creatinine continues to rise in between HD treatments. Patient remains in injury phase of ATN * Will provide HD today for correction of azotemia. Orders have been placed in EMR and HD RN notified * Will consult vascular surgery to remove IJ CVC and temporary HD catheter and place IJ TCC * Will consult case management to set up outpatient HD * Jenkins catheter removed 01/13/24. Patient now voiding on his own * Encourage oral hydration * Monitor strict I&O, daily BMP * Discussed POC with patient and spouse today. They are in agreement w/ above outlined plan of care (2) Hypokalemia: Plan: * Will use 4K bath on HD today (3) Lactic acidosis: Plan: * Metformin has been held (4) Diabetic nephropathy: Plan: * CKD I-II A2-3. Baseline creatinine 1.1 mg/dL in July 2023. MACR ~300 mcg/mg. (5) DM2 (diabetes mellitus, type 2): Plan: * Metformin and semaglutide held. (6) Weakness: Plan: * Encourage ambulation in hallway w/ assistance Admission and Anticipated Discharge Date Admission Date: January 10, 2024 Subjective Mr. Valadez was evaluated in his hospital room this morning. He reports tolerating an oral diet and maintaining good oral hydration. Jenkins catheter was removed yesterday and patient reports that he is voiding without difficulty. Review of Systems Constitutional: no fever Eyes: no problem reported Ear, Nose, Mouth, Throat: no problem reported Respiratory: no cough and no dyspnea Cardiovascular: no chest pain Gastrointestinal: no abdominal pain Physical Exam Constitutional: + ill appearing; not in distress Eyes: PERRL, conjunctivae normal, anicteric sclerae Neck: trachea midline, no thyromegaly Respiratory: normal respiratory effort, lungs clear to auscultation Cardiovascular: RRR, no murmur, no edema Gastrointestinal (Abdomen): Inspection/Auscultation: + hypoactive bowel sounds Percussion/Palpation: abdomen nontender and no guarding Musculoskeletal: Extremities: no cyanosis and no clubbing Skin: no rashes, warm and dry Neurologic: Speech / Cognition: normal speech and normal cognition Results & Data Vital Signs (Past 12 Hours) Vital Signs Temp Pulse Pulse Resp BP Pulse Ox O2 Del Method 01/14/24 08:14 36.5 C 59 L 20 154/92 H 99 Room Air 01/14/24 02:21 36.6 C 66 20 142/84 H 98 Room Air 01/13/24 22:07 36.6 C 64 20 146/84 H 99 Room Air 01/13/24 21:59 66 Laboratory Results Laboratory Results - last 24 hr 01/13/24 01/13/24 01/13/24 11:06 16:14 20:05 WBC RBC Hgb Hct MCV MCH MCHC RDW Std Deviation RDW Coeff of Parveen Plt Count MPV Sodium Potassium Chloride Carbon Dioxide Anion Gap BUN Creatinine Est Cr Clr Drug Dosing eGFR BUN/Creatinine Ratio Glucose POC Glucose 214 H 156 H 275 H Calcium Magnesium 01/14/24 01/14/24 06:35 07:23 WBC 5.54 RBC 3.11 L Hgb 8.2 L Hct 24.4 L MCV 78.5 L MCH 26.4 MCHC 33.6 RDW Std Deviation 41.5 RDW Coeff of Parveen 14.7 H Plt Count 154 MPV 10.1 Sodium 138 Potassium 3.2 L Chloride 107 Carbon Dioxide 21 Anion Gap 10 BUN 57 H Creatinine 9.21 H* D Est Cr Clr Drug Dosing 10.2 eGFR 6.55 BUN/Creatinine Ratio 6.2 L Glucose 113 H POC Glucose 116 H Calcium 7.0 L Magnesium 2.0 PG Care Time/CCT Total # of Minutes Spent Total Time Spent with Patient: Total time spent is greater than 50% in coordination of care (as documented) at patient's floor/unit and/or counseling patient: Coding Level of Care Code 55779 SUB INP/OBS CARE 3/50MIN Diagnoses RODRIGO (acute kidney injury) N17.9 Hypokalemia E87.6 Lactic acidosis E87.20 Diabetic nephropathy associated with type 2 diabetes mellitus E11.21 Diabetes mellitus type: type 2 DM2 (diabetes mellitus, type 2) E11.9 Weakness R53.1 (4) Diabetic nephropathy Diabetes mellitus type: type 2 Qualified Code(s): E11.21 - Type 2 diabetes mellitus with diabetic nephropathy
[2024-01-14] MEDS: POTASSIUM CHLORIDE CRTAB 20 MEQ TABCR PO ONE (12:05)
--- NOTE | 2024-01-14 15:36 | Hospitalist Progress Note ---
Date of Service January 14, 2024 Assessment & Plan (1) Gastric outlet obstruction: Plan: Presented with history of nausea and vomiting x 5 days. On presentation, patient was found to have significant electrolyte abnormalities including hypokalemia, hypocalcemia, lactic acidosis, and acute renal injury. - Admitted to ICU given profound lactic acidosis, uremia, severe RODRIGO and severe electrolyte derangements > Right IJ central line placed by ICU 01/09 for electrolyte replacement - Downgraded to PCU - Gastric outlet obstruction > CT A/P on admission showed a significantly dilated stomach, normal small bowel, and collapsed colon. No obvious sign of ischemic bowel on CT per report - GI consulted and general surgery consulted > Suspect multifactorial related to diabetic gastroparesis, possible Ozempic- induced gastroenteritis, aggravated by electrolyte abnormalities / acute renal failure > NG tube placed 01/09 and removed 01/10 > tolerating diet without any difficulties. blood cultures remain negative (2) RODRIGO (acute kidney injury): Plan: Severe RODRIGO with dense ATN likely due to volume depletion. No urinary tract obstruction noted on imaging. Baseline creatinine ~1.1 reviewed recommendations from nephrology note today plan for dialysis today, creatinine dianna quickly to 9 after holding dialysis for a few days electrolytes notable for potassium back down to 3.2 ordered replacement with a 60 mEq p.o. today metabolic acidosis resolved nonoliguric consulting Dr. Carmichael to change temporary dialysis line to a tunneled 1, planning for outpatient dialysis (3) DM2 (diabetes mellitus, type 2): Plan: Evidence of mild DKA on admission continue Premeal short acting insulin - Correction Factor: 50 mg/dL/unit - added carbohydrate ratio - BSGs ACHS if eating, q6h if npo (4) Elevated troponin: Plan: Elevated troponin and somewhat abnormal EKG on admission - Troponin peaked at 126.6 - Elevated troponin is likely due to demand ischemia in setting of acute renal failure and severe volume depletion - EKG showed increased QTc compared to prior - Obtain EKG with any occurrence of chest pain - Overnight 01/11, patient had 12 beat run of V tach then converted back to NSR. potassium was 3.2 at that time - Echo revealed EF 50-55%, right ventricular systolic pressure elevated at 30-40 mmHg, normal diastolic function, no significant valvular heart disease - Started/continue metoprolol 12.5 mg BID - replace potassium continue quality assurance monitor for today Plan advanced to general/carb consistent diet Chronic Issues: - Hyperlipidemia - continue rosuvastatin 40 mg - History of opioid use/abuse -- per patient, he does not take the medication; no evidence of withdrawal DVT prophylaxis -- SCDs, heparin twice daily CODE STATUS -- full code Admission and Anticipated Discharge Date Admission Date: January 10, 2024 Subjective Ramsey is feeling okay he has some fatigue but he feels like his strength is getting better, he has had no more GI problems and is tolerating his diet well this time no shortness of breath no leg edema Physical Exam 2 Physical Exam: PHYSICAL EXAMINATION Last 24h vital signs reviewed, see documentation in flowsheet General: comfortable appearing, no distress HEENT: Normocephalic, atraumatic, pupils round and equal, sclerae anicteric, no conjunctival injection, moist mucus membranes Lungs: Normal respiratory effort. Clear to auscultation bilaterally. No RRW Heart: Regular rate and rhythm, no murmurs. No JVD right IJ TLC, left IJ temporary hemodialysis catheter Abdomen: Soft, nontender, nondistended. Bowel sounds present. Extremities: Warm, dry, well-perfused. No extremity edema. Neuro: Alert and oriented x 4, face symmetric, moves 4 extremities well Psych: Normal affect and behavior Results & Data Results & Data Vital Signs (Past 12 Hours) Vital Signs Temp Pulse Pulse Resp BP Pulse Ox O2 Del Method 01/14/24 14:02 63 01/14/24 11:12 36.8 C 52 L 20 146/89 H 100 Room Air 01/14/24 08:14 36.5 C 59 L 20 154/92 H 99 Room Air 01/14/24 08:00 62 Laboratory Results 01/14/24 06:35 01/14/24 06:35 PG Care Time/CCT Total # of Minutes Spent Total Time Spent with Patient: Total time spent is greater than 50% in coordination of care (as documented) at patient's floor/unit and/or counseling patient: Coding Level of Care Code 38776 SUB INP/OBS CARE 2/35MIN Diagnoses Gastric outlet obstruction K31.1 RODRIGO (acute kidney injury) N17.9 DM2 (diabetes mellitus, type 2) E11.9 Elevated troponin R79.89
[2024-01-14] MEDS: EPOETIN ALFA 10,000 UNITS/ML VIAL IV ONE (19:20)
[2024-01-14] MEDS: HEPARIN SOD (PORCINE) 1000 UNIT/ML IV SCH (19:20)
[2024-01-14] MEDS: HEPARIN SOD (PORCINE) 1000 UNIT/ML IV ONE (19:20)
[2024-01-14] MEDS: buprenorphine HCL 8 MG SUBL SL ONE (23:51)
[2024-01-15] MEDS ORDERED: Nursing to Pharmacy Communication SCH ×2 (06:00→10:15)
[2024-01-15] MEDS: INSULIN ASPART PER UNIT CHARGE SC SCH ×2 (06:04→11:53)
[2024-01-15] MEDS: buprenorphine HCL 8 MG SUBL SL SCH (08:09)
--- NOTE | 2024-01-15 08:47 | Nephrology Progress Note ---
Date of Service January 15, 2024 Assessment & Plan (1) RODRIGO (acute kidney injury): Plan: * Oliguric RODRIGO due to dehydration. Patient has suffered dense ATN. * High anion gap metabolic acidosis due to RODRIGO/metformin therapy - resolved following HD * HD could not be completed yesterday due to nonfunctional/clotted temporary dialysis catheter. staff therapist unable to aspirate from either port. Volume status and electrolyte balance were acceptable at that time * Vascular surgery has been consulted to remove IJ CVC and temporary HD catheter and place IJ TCC. Surgery is planned for 01/15 at ~ 1pm * Awaiting labs this am * Case management has been consulted to set up outpatient HD * Encourage oral hydration * Monitor strict I&O, daily BMP * Discussed POC with patient today. They are in agreement w/ above outlined plan of care (2) Hypokalemia: Plan: * Await am labs (3) Lactic acidosis: Plan: * Resolved. 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 Baseline creatinine 1.1 mg/dL in July 2023. MACR ~300 mcg/mg. (5) DM2 (diabetes mellitus, type 2): Plan: * Metformin and semaglutide held. (6) Weakness: Plan: * Encourage ambulation in hallway w/ assistance Admission and Anticipated Discharge Date Admission Date: January 10, 2024 Subjective Mr. Valadez was evaluated in his hospital room this morning. Dialysis could not be performed yesterday as L IJ temporary HD catheter was nonfunctional/clotted. Vascular surgery has been consulted to remove this catheter and place new IJ TCC. Patient voices no new medical concerns Review of Systems Constitutional: no fever Eyes: no problem reported Ear, Nose, Mouth, Throat: no problem reported Respiratory: no cough and no dyspnea Cardiovascular: no chest pain Gastrointestinal: no abdominal pain Physical Exam Constitutional: not in distress Eyes: PERRL, conjunctivae normal, anicteric sclerae Neck: trachea midline, no thyromegaly Respiratory: normal respiratory effort, lungs clear to auscultation Cardiovascular: RRR, no murmur, no edema Gastrointestinal (Abdomen): Inspection/Auscultation: abdomen normal to inspection and + hypoactive bowel sounds Percussion/Palpation: abdomen nontender and no guarding Musculoskeletal: Extremities: no cyanosis and no clubbing Skin: no rashes, warm and dry Neurologic: Speech / Cognition: normal speech and normal cognition Results & Data Vital Signs (Past 12 Hours) Vital Signs Temp Pulse Pulse Resp BP Pulse Ox O2 Del Method 01/15/24 07:12 36.7 C 61 18 167/84 H 98 Room Air 01/15/24 02:26 36.7 C 70 18 145/80 H 98 Room Air 01/14/24 22:25 36.8 C 76 18 163/98 H 99 Room Air 01/14/24 22:00 01/14/24 21:49 77 O2 Del Method 01/15/24 07:12 01/15/24 02:26 01/14/24 22:25 01/14/24 22:00 Room Air 01/14/24 21:49 PG Care Time/CCT Total # of Minutes Spent Total Time Spent with Patient: Total time spent is greater than 50% in coordination of care (as documented) at patient's floor/unit and/or counseling patient: Coding Level of Care Code 88521 SUB INP/OBS CARE 3/50MIN Diagnoses RODRIGO (acute kidney injury) N17.9 Hypokalemia E87.6 Lactic acidosis E87.20 Diabetic nephropathy associated with type 2 diabetes mellitus E11.21 Diabetes mellitus type: type 2 DM2 (diabetes mellitus, type 2) E11.9 Weakness R53.1 (4) Diabetic nephropathy Diabetes mellitus type: type 2 Qualified Code(s): E11.21 - Type 2 diabetes mellitus with diabetic nephropathy
--- NOTE | 2024-01-15 09:24 | Consultation ---
Date of Consultation January 15, 2024 Assessment & Plan (1) Acute renal failure (ARF): Pt with poor renal fxn, requiring HD. Pt discussed with Dr Carmichael, planning on permcath insertion in OR tomorrow. Procedure, risks, benefits, and alternatives discussed wt pt by myself at Dr Carmichael's request. Pt expresses understanding and agreement. R IJ central line will need removed TODAY, discussed with RN. Acute renal failure type: unspecified Qualified Code(s): N17.9 - Acute kidney failure, unspecified History of Present Illness Reason for Consultation: RODRIGO Attending Physician: Leah Valladares MD History of Present Illness 48 yo m with hx of HTN, DMII, anxiety, depression, anemia, dyslipidemia, GERD, neuropathy, opiate dependence, admitted with dehydration and RODRIGO d/t N/V from gastric outlet obstruction, seen in consultation today for permcath insertion for HD. Pt has been undergoing HD through L IJ temporary line, but this is no longer functioning. He has improved clinically, but renal fxn remains poor. Will require HD for longer term, planning for outpt.Pt admits fatigue/malaise, poor appetite, and mild edema of BLE. Pt denies CEBALLOS, fever, chest pain, SOB,abd pain, N/V presently, rest pain, claudication, other complaints. Allergies Allergy/AdvReac Type Severity Reaction Status Date / Time naloxone AdvReac Mild nauseaous Verified 07/26/23 07:36 and drowsy Home Medications Medication Instructions Recorded Confirmed Type blood sugar diagnostic (OneTouch #100 ea 12/17/19 07/26/23 Rx Ultra Blue Test Strip) blood-glucose meter (OneTouch #1 ea 12/17/19 07/26/23 Rx Ultra2 Meter) buprenorphine HCl 8 mg sublingual 8 mg sublingual UD 06/06/20 01/10/24 History tablet pantoprazole 40 mg tablet,delayed 40 mg PO QAM #90 tabs 08/26/23 01/10/24 Rx release rosuvastatin 40 mg tablet 40 mg PO QAM #90 tabs 08/26/23 01/10/24 Rx metformin 500 mg tablet,extended 1,000 mg (2 x 500 mg) PO BID #360 10/16/23 01/10/24 Rx release 24 hr tabs semaglutide 0.25 mg or 0.5 mg (2 0.5 mg (0.736 mL) subcut .weekly 01/02/24 01/10/24 Rx mg/3 mL) subcutaneous pen injector #3 mL (Ozempic) Patient History Medical History Restless leg syndrome Migraine occasional History of alcohol abuse Surgical History History of colonoscopy History of esophagogastroduodenoscopy (EGD) H/O wisdom tooth extraction S/P hardware removal right hand History of open reduction and internal fixation (ORIF) procedure right hand Hx of appendectomy Family History Father Brain tumor Mental disorder Grandfather (Paternal) Coronary heart disease Type 2 diabetes mellitus Mother Mental disorder Grandfather (Maternal) Type 2 diabetes mellitus Denies family history of Ovarian cancer Prostate cancer Myocardial infarction Breast cancer Colorectal cancer Social History Smoking Status: Former smoker Tobacco Type: Cigarettes and Smokeless Tobacco (Dip or Chew) Second Hand Exposure: Yes; Do You Dip or Chew Tobacco: Yes; Tobacco Cessation Education Requested by Patient: No Hx Alcohol Use: No Hx Substance Use: No Preferred Language: Kyr[place]z Communication Ability: Effective Visual Impairment: No Limitations Hearing Ability: Normal Flexible Nanny Required: No Beliefs That Will Affect Care: None marital status: Current Living Situation: Spouse current occupational status: employed 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 caffeine: Yes (Soda 1 can per day. ) during the past year weight has: remained stable Dental Care, Regularly: No Physical Activity Frequency: 5-6 Times per Week Seatbelt Use: always Sunscreen Use: Yes Assistive Devices: None Review of Systems Review of Systems: All systems reviewed & are unremarkable except as noted in HPI & below Physical Exam Constitutional: WD/WN, vitals as above cooperative and comfortable; not in distress Neck: trachea midline Respiratory: normal respiratory effort, lungs clear to auscultation Auscultation: + diminished lung sounds Cardiovascular: Rate/Rhythm: regular rate and regular rhythm Vessels: femoral pulses present, posterior tibial pulses present, dorsalis pedis pulses present and radial pulses present; + abnormal peripheral pulses Extremities: normal capillary refill and + edema (mild) Gastrointestinal (Abdomen): Inspection/Auscultation: abdomen normal to inspection and normal bowel sounds Percussion/Palpation: abdomen soft; abdomen nontender Musculoskeletal: no cyanosis or clubbing, extremities motor strength 5/5 Skin: no rashes, warm and dry Neurologic: moves all extremities and awake; no focal motor deficits and not confused Psychiatric: A+Ox3, euthymic affect Results & Data Vital Signs (Past 12 Hours) Vital Signs Temp Pulse Pulse Resp BP Pulse Ox O2 Del Method 01/15/24 08:00 66 01/15/24 07:12 36.7 C 61 18 167/84 H 98 Room Air 01/15/24 02:26 36.7 C 70 18 145/80 H 98 Room Air 01/14/24 22:25 36.8 C 76 18 163/98 H 99 Room Air 01/14/24 22:00 01/14/24 21:49 77 O2 Del Method 01/15/24 08:00 01/15/24 07:12 01/15/24 02:26 01/14/24 22:25 01/14/24 22:00 Room Air 01/14/24 21:49
[2024-01-15 10:24] LABS: BUN Creatinine Ratio 6.3 (10-20); Calcium 7.2 mg/dl (8.6-10.3); Creatinine Clr Calc Pharmacy 8.5 ml/min; Potassium 3.5 mmol/L (3.5-5.1)
[2024-01-15] MEDS: SODIUM BICARBONATE 650 MG TAB PO SCH (11:53)
[2024-01-15] MEDS: POLYETHYLENE (MIRALAX) 17 GM PACK PO ONE (13:23)
[2024-01-15 15:32] LABS: Amphetamine Urine, Confirm NEGATIVE ng/mL (<250); Methamphetamine, Ur Confirm 746 ng/mL (<250)
--- NOTE | 2024-01-15 17:50 | Hospitalist Progress Note ---
Date of Service January 15, 2024 Assessment & Plan (1) Gastric outlet obstruction: Plan: Presented with history of nausea and vomiting x 5 days. On presentation, patient was found to have significant electrolyte abnormalities including hypokalemia, hypocalcemia, lactic acidosis, and acute renal injury. - Admitted to ICU given profound lactic acidosis, uremia, severe RODRIGO and severe electrolyte derangements > Right IJ central line placed by ICU 01/09 for electrolyte replacement > CT A/P on admission showed a significantly dilated stomach, normal small bowel, and collapsed colon. No obvious sign of ischemic bowel on CT - GI consulted and general surgery consulted > Suspect multifactorial related to diabetic gastroparesis, possible Ozempic- induced gastroenteritis, aggravated by electrolyte abnormalities / acute renal failure > NG tube placed 01/09 and removed 01/10 > tolerating diet without any difficulties. blood cultures remain negative (2) RODRIGO (acute kidney injury): Plan: Severe RODRIGO with dense ATN likely due to volume depletion. No urinary tract obstruction noted on imaging. Baseline creatinine ~1.1 required acute hemodialysis nonoliguric but Cr rising quickly after pausing HD temp HD line clotted 01/14 planned for tunneled HD line placement by Dr. Carmichael 01/15 will need outpatient HD appointment hypokalemia improved, K 3.5 today after replacement Na bicarb po started by assembly machine offbearer today for metabolic acidosis Cr up to 11 today but volume status and electrolytes acceptable (3) DM2 (diabetes mellitus, type 2): Plan: Evidence of mild DKA on admission continue Premeal short acting insulin - Correction Factor: 50 mg/dL/unit - added carbohydrate ratio - BG improved today mostly at goal last 24h - BSGs ACHS if eating, q6h if npo (4) Elevated troponin: Plan: Elevated troponin and somewhat abnormal EKG on admission - Troponin peaked at 126.6 - Elevated troponin is likely due to demand ischemia in setting of acute renal failure and severe volume depletion - EKG showed increased QTc compared to prior - Obtain EKG with any occurrence of chest pain - Overnight 01/11, patient had 12 beat runs of NSVT. potassium was 3.2 at that time - Echo revealed EF 50-55%, right ventricular systolic pressure elevated at 30-40 mmHg, normal diastolic function, no significant valvular heart disease - Started/continue metoprolol 12.5 mg BID - no further episodes but continue monitor until HD resumed, keep potassium in normal range Plan Chronic Issues: - Hyperlipidemia - continue rosuvastatin 40 mg - History of opioid use/abuse - resumed suboxone DVT prophylaxis -- SCDs, heparin twice daily updated his mother at bedside today Admission and Anticipated Discharge Date Admission Date: January 10, 2024 Subjective temp HD clotted yesterday eating fine without nausea or abdominal pain no dyspnea leg edema increased Physical Exam 2 Physical Exam: PHYSICAL EXAMINATION Last 24h vital signs reviewed, see documentation in flowsheet General: comfortable appearing, no distress HEENT: Normocephalic, atraumatic, pupils round and equal, sclerae anicteric, no conjunctival injection, moist mucus membranes Lungs: Normal respiratory effort. Clear to auscultation bilaterally. No RRW Heart: Regular rate and rhythm, no murmurs. No JVD right IJ TLC, left IJ temporary hemodialysis catheter Abdomen: Soft, nontender, nondistended. Bowel sounds present. Extremities: Warm, dry, well-perfused. 1+ lower extremity edema. Neuro: Alert and oriented x 4, face symmetric, moves 4 extremities well Psych: Normal affect and behavior Results & Data Results & Data Vital Signs (Past 12 Hours) Vital Signs Temp Pulse Pulse Resp BP Pulse Ox O2 Del Method 01/15/24 15:25 36.7 C 73 18 182/93 H 98 Room Air 01/15/24 14:00 66 01/15/24 11:14 36.4 C L 60 18 167/97 H 99 Room Air 01/15/24 08:00 66 01/15/24 07:12 36.7 C 61 18 167/84 H 98 Room Air Laboratory Results 01/14/24 06:35 01/15/24 09:50 PG Care Time/CCT Total # of Minutes Spent Total Time Spent with Patient: Total time spent is greater than 50% in coordination of care (as documented) at patient's floor/unit and/or counseling patient: Coding Level of Care Code 44970 SUB INP/OBS CARE 2/35MIN Diagnoses Gastric outlet obstruction K31.1 RODRIGO (acute kidney injury) N17.9 DM2 (diabetes mellitus, type 2) E11.9 Elevated troponin R79.89
[2024-01-16 07:46] LABS: Hematocrit (blood only) 24.8 % (42.0-52.0); Hemoglobin 8.5 g/dl (14.0-18.0); Mean Corpuscular Hemoglobin 26.8 pg (25.0-34.0); Mean Corpuscular Hgb Conc 34.3 g/dL (32.0-36.0); Mean Corpuscular Volume 78.2 fL (80.0-100.0); Mean Platelet Volume 9.5 fL (9.4-12.4); Platelet Count 258 K/uL (130-400); RDW Coefficient of Variation 14.8 % (11.5-14.5); RDW Standard Deviation 42.1 fL (36.4-46.3); Red Blood Count 3.17 M/uL (4.70-6.10); White Blood Count 7.58 K/ul (4.8-10.8)
[2024-01-16 08:14] LABS: BUN Creatinine Ratio 6.5 (10-20); Calcium 7.6 mg/dl (8.6-10.3); Creatinine Clr Calc Pharmacy 8.1 ml/min; Potassium 3.6 mmol/L (3.5-5.1)
--- NOTE | 2024-01-16 10:17 | History & Physical Bridge Note ---
Date of Service January 16, 2024 History & Physical Bridge Note Patient for insertion of permcath today. I have discussed the risks options and benefits of the procedure with the patient. The patient understands the risks options and benefits and agrees to the procedure. I have examined the patient, reviewed the History & Physical and in the interval since the performance of the History & Physical I have noted the following changes of clinical significance: no changes noted
--- NOTE | 2024-01-16 10:19 | Nephrology Progress Note ---
Date of Service January 16, 2024 Assessment & Plan (1) RODRIGO (acute kidney injury): Plan: * Oliguric RODRIGO due to dehydration. 01/[address] negative for hydronephrosis. Patient has ATN. * Although non-oliguric, creatinine continues to rise in between HD treatments. Patient remains in injury phase of ATN * Vascular surgery to place IJ TCC this afternoon * Will provide heparin free HD today after IJ TCC placed * Case management [facility] 12 [facility]. 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 Baseline creatinine 1.1 mg/dL in July 2023. MACR ~300 mcg/mg. (3) DM2 (diabetes mellitus, type 2): Plan: * Metformin and semaglutide held. (4) Weakness: Plan: * Encourage ambulation in hallway w/ assistance Admission and Anticipated Discharge Date Admission Date: January 10, 2024 Subjective Mr. Valadez was evaluated in his hospital room this morning. R IJ CVC was removed yesterday. Mr. Valadez denies angina, dyspnea. He reports back discomfort and poor UO Review of Systems Constitutional: no fever Eyes: no problem reported Ear, Nose, Mouth, Throat: no problem reported Respiratory: no cough and no dyspnea Cardiovascular: no chest pain Gastrointestinal: no abdominal pain Physical Exam Constitutional: not in distress Eyes: PERRL, conjunctivae normal, anicteric sclerae Neck: trachea midline, no thyromegaly Respiratory: normal respiratory effort, lungs clear to auscultation Cardiovascular: RRR, no murmur, no edema Gastrointestinal (Abdomen): Inspection/Auscultation: abdomen normal to inspection and normal bowel sounds Musculoskeletal: Extremities: no cyanosis and no clubbing Skin: no rashes, warm and dry Neurologic: Speech / Cognition: normal speech and normal cognition Results & Data Vital Signs (Past 12 Hours) Vital Signs Temp Pulse Pulse Resp BP Pulse Ox O2 Del Method 01/16/24 08:00 69 01/16/24 07:47 36.4 C L 65 18 160/90 H 98 Room Air 01/16/24 03:25 36.7 C 67 17 152/86 H 100 Room Air 01/15/24 22:59 36.6 C 67 21 161/86 H 100 Room Air 01/15/24 22:58 68 Laboratory Results Laboratory Results WBC 7.58 K/ul (4.8-10.8) 01/16/24 07:09 RBC 3.17 M/uL (4.70-6.10) L 01/16/24 07:09 Hgb 8.5 g/dl (14.0-18.0) L 01/16/24 07:09 POC Hgb 9.2 g/dl (14.0-18.0) L 01/10/24 15:00 Hct 24.8 % (42.0-52.0) L 01/16/24 07:09 POC Hct 27 % (42-52) L 01/10/24 15:00 MCV 78.2 fL (80.0-100.0) L 01/16/24 07:09 MCH 26.8 pg (25.0-34.0) 01/16/24 07:09 MCHC 34.3 g/dL (32.0-36.0) 01/16/24 07:09 RDW Std Deviation 42.1 fL (36.4-46.3) 01/16/24 07:09 RDW Coeff of Parveen 14.8 % (11.5-14.5) H 01/16/24 07:09 Plt Count 258 K/uL (130-400) 01/16/24 07:09 MPV 9.5 fL (9.4-12.4) 01/16/24 07:09 Immature Gran % (Auto) 0.4 % 01/11/24 04:35 Neut % (Auto) 88.2 % 01/11/24 04:35 Lymph % (Auto) 5.2 % 01/11/24 04:35 [place] % (Auto) 6.0 % 01/11/24 04:35 Eos % (Auto) 0.0 % 01/11/24 04:35 Baso % (Auto) 0.2 % 01/11/24 04:35 Neut # (Auto) 9.36 K/uL (1.40-6.50) H 01/11/24 04:35 Lymph # (Auto) 0.55 K/uL (1.20-3.40) L 01/11/24 04:35 [place] # (Auto) 0.64 K/uL (0.11-0.59) H 01/11/24 04:35 Eos # (Auto) 0.00 K/uL (0.00-0.50) 01/11/24 04:35 Baso # (Auto) 0.02 K/uL (0.00-0.20) 01/11/24 04:35 Immature Gran # (Auto) 0.04 K/uL (0.01-0.20) 01/11/24 04:35 Specimen Type Arterial 01/10/24 15:00 POC pH 7.29 (7.35-7.45) L 01/10/24 15:00 POC pCO2 21 mmHg (35-46) L 01/10/24 15:00 POC pO2 113 mmHg (80-95) H 01/10/24 15:00 POC HCO3 10 michelle/L (19-24) L 01/10/24 15:00 POC Total CO2 11 mmol/L (24-31) L 01/10/24 15:00 POC Base Excess -17.0 michelle/L (-9-1.8) L 01/10/24 15:00 POC ABG O2 Sat 98.0 % (90-95) H 01/10/24 15:00 VBG pH 7.20 (7.36-7.41) L 01/10/24 14:20 VBG pCO2 26 mmHg (38-50) L 01/10/24 14:20 VBG pO2 41 mmHg 01/10/24 14:20 VBG HCO3 10 mmol/L 01/10/24 14:20 VBG O2 Saturation < 60.0 % 01/10/24 14:20 VBG Base Excess -16.2 mEq/L 01/10/24 14:20 POC Sodium 134 mmol/L (135-144) L 01/10/24 15:00 Sodium 138 mmol/L (136-145) 01/16/24 07:09 POC Potassium 2.2 mmol/L (3.3-5.0) L* 01/10/24 15:00 Potassium 3.6 mmol/L (3.5-5.1) 01/16/24 07:09 Chloride 105 mmol/L (98-107) 01/16/24 07:09 Carbon Dioxide 19 mmol/L (21-32) L 01/16/24 07:09 Anion Gap 14 (3-11) H 01/16/24 07:09 BUN 76 mg/dl (6-23) H 01/16/24 07:09 Creatinine 11.72 mg/dl (0.6-1.4) H* D 01/16/24 07:09 Est Cr Clr Drug Dosing 8.1 ml/min 01/16/24 07:09 eGFR 4.90 01/16/24 07:09 BUN/Creatinine Ratio 6.5 (10-20) L 01/16/24 07:09 Glucose 149 mg/dl (70-99(Fasting)) H 01/16/24 07:09 POC Glucose 162 mg/dl (70-99) H 01/16/24 07:28 Estimat Average Glucose 163 mg/dl 01/11/24 04:35 Hemoglobin A1c 7.3 % (4.5-5.6) H 01/11/24 04:35 Osmolality 319 mOsm/kg (280-300) H 01/10/24 14:20 Lactate 1.6 mmol/L (0.4-2.0) 01/11/24 11:56 Calcium 7.6 mg/dl (8.6-10.3) L 01/16/24 07:09 Phosphorus 3.8 mg/dl (2.5-4.9) 01/11/24 14:23 Magnesium 2.0 mg/dl (1.7-2.4) 01/14/24 06:35 Total Bilirubin 0.7 mg/dl (0.2-1.0) 01/12/24 02:04 Direct Bilirubin 0.2 mg/dl (0-0.2) 01/12/24 02:04 AST 27 U/L (13-39) 01/12/24 02:04 ALT 13 U/L (7-52) 01/12/24 02:04 Alkaline Phosphatase 45 U/L (34-104) 01/12/24 02:04 Ammonia 57.0 umol/L (18-72) 01/10/24 15:25 Troponin I High Sens 121.5 pg/ml (0-20) H* 01/11/24 04:35 Total Protein 5.0 gm/dl (6.0-8.3) L D 01/12/24 02:04 Albumin 3.0 gm/dl (3.4-5.0) L 01/12/24 02:04 Globulin 2.9 gm/dl (2.5-4.0) 01/10/24 10:35 Albumin/Globulin Ratio 1.5 (0.9-2) 01/10/24 10:35 Urine Color Yellow 01/11/24 Unknown Urine Appearance Cloudy (Clear) A 01/11/24 Unknown Urine pH 5.5 (4.5-7.5) 01/11/24 Unknown Ur Specific [place] 1.007 (1.000-1.030) 01/11/24 Unknown Urine Protein 2+ (Negative) H 01/11/24 Unknown Urine Glucose (UA) Negative (Negative) 01/11/24 Unknown Urine Ketones Negative (Negative) 01/11/24 Unknown Urine Blood 3+ (Negative) H 01/11/24 Unknown Urine Nitrite Negative (Negative) 01/11/24 Unknown Urine Bilirubin Negative (Negative) 01/11/24 Unknown Urine Urobilinogen Negative (Negative) 01/11/24 Unknown Ur Leukocyte Esterase 2+ (Negative) H 01/11/24 Unknown Urine WBC (Auto) 21-50 /hpf (0-5) H 01/11/24 Unknown Urine RBC (Auto) 6-10 /hpf (0-2) H 01/11/24 Unknown U Hyaline Cast (Auto) 6-10 /lpf (0-2) H 01/11/24 Unknown U Epithel Cells (Auto) 0-2 /hpf (0-2) 01/11/24 Unknown Urine Bacteria (Auto) 1+ (None Seen) H 01/11/24 Unknown Granular Casts Present /lpf (None Prsent) A 01/11/24 Unknown Waxy Casts Present /lpf (None Prsent) A 01/11/24 Unknown Ur Random Creatinine 55.2 mg/dl 01/10/24 13:25 Ur Random Sodium 103 mmol/L 01/10/24 13:25 Nasal Screen MRSA (PCR) Negative (Negative) 01/10/24 16:32 Salicylates < 3.0 mg/dl (3.0-30) L 01/10/24 14:20 Urine Opiates Screen Neg (Neg) 01/10/24 13:25 Ur Methadone, Qual Neg (Neg) 01/10/24 13:25 Urine Fentanyl Screen Neg (Neg) 01/10/24 13:25 Acetaminophen < 3 ug/ml (10-30) L 01/10/24 14:20 Urine Barbiturates Neg (Neg) 01/10/24 13:25 Ur Phencyclidine (PCP) Neg (Neg) 01/10/24 13:25 U Amphetamines Confirm NEGATIVE ng/mL (<250) 01/10/24 13:25 U Amphetamin/Meth Scrn Pos (Neg) H 01/10/24 13:25 U Methamphetamin Confrm 746 ng/mL (<250) H 01/10/24 13:25 MDMA (Ecstasy) Screen Neg (Neg) 01/10/24 13:25 U Benzodiazepines Scrn Neg (Neg) 01/10/24 13:25 Ur Cocaine Metabolite Neg (Neg) 01/10/24 13:25 U Marijuana (THC) Screen Neg (Neg) 01/10/24 13:25 Drug Screen Comment SEE NOTE 01/10/24 13:25 Adenovirus (PCR) Not Detected (NotDetected) 01/10/24 15:48 B. pertussis DNA (PCR) Not Detected (NotDetected) 01/10/24 15:48 B.parapertussis DNA PCR Not Detected (NotDetected) 01/10/24 15:48 C. pneumoniae DNA (PCR) Not Detected (NotDetected) 01/10/24 15:48 Coronavirus OC43 (PCR) Not Detected (NotDetected) 01/10/24 15:48 Coronavirus HKU1 (PCR) Not Detected (NotDetected) 01/10/24 15:48 Coronavirus 229E (PCR) Not Detected (NotDetected) 01/10/24 15:48 SARS-CoV-2 (PCR) Not Detected (NotDetected) 01/10/24 15:48 Coronavirus NL63 (PCR) Not Detected (NotDetected) 01/10/24 15:48 Hep Bs Antigen Negative (Negative) 01/10/24 23:36 Hep Bs Antibody Non-Immune 01/10/24 23:36 Hep Bs Antibody, Quant 3.28 mIU/mL (>or=10mIU/mL Immune) 01/10/24 23:36 Human Metapneumovir PCR Not Detected (NotDetected) 01/10/24 15:48 Influenza Type A (PCR) Not Detected (NotDetected) 01/10/24 15:48 Influenza Type B (PCR) Not Detected (NotDetected) 01/10/24 15:48 M. pneumoniae (PCR) Not Detected (NotDetected) 01/10/24 15:48 Parainfluenza 1 (PCR) Not Detected (NotDetected) 01/10/24 15:48 Parainfluenza 2 (PCR) Not Detected (NotDetected) 01/10/24 15:48 Parainfluenza 3 (PCR) Not Detected (NotDetected) 01/10/24 15:48 Parainfluenza 4 (PCR) Not Detected (NotDetected) 01/10/24 15:48 RSV (PCR) Not Detected (NotDetected) 01/10/24 15:48 Entero/Rhino (PCR) Not Detected (NotDetected) 01/10/24 15:48 Impressions Abdomen/Pelvis CT 01/10/24 11:17 CT SCAN OF THE ABDOMEN AND PELVIS WITHOUT IV CONTRAST CLINICAL HISTORY: Acute renal insufficiency. Vomiting. COMPARISON STUDY: Abdominal x-ray dated 01/10/2024. TECHNIQUE: CT scan of the abdomen and pelvis is performed from the lung bases to the proximal femora. Images are reviewed in the axial, sagittal, and coronal planes. IV contrast was not administered for this examination due to poor renal function. Note that the examination is suboptimal without oral and IV contrast. A dose lowering technique was utilized adhering to the principles of ALARA. CT DOSE: 671.79 mGy.cm FINDINGS: Lung bases: The heart is normal in size and without pericardial effusion. The lung bases are clear. The distal esophagus is mildly distended and filled with fluid. Liver: The unenhanced liver is normal in size, contour, and attenuation. There is no intrahepatic biliary ductal dilatation. Gallbladder: Unremarkable. Spleen: Normal in size and attenuation. Pancreas: Unremarkable. Adrenal glands: Unremarkable. Kidneys: The unenhanced kidneys are normal in size and without hydronephrosis. No renal calculi are identified and no ureteral stone is seen. There is no evidence of contour deforming renal mass lesion. There is nonspecific bilateral perinephric stranding. Abdominal vasculature: The abdominal aorta is normal in course and caliber. Bowel: The stomach is significantly distended and fluid-filled. The duodenum is normal in caliber, there is no evidence of high-grade bowel obstruction. The colon is relatively decompressed and appears diffusely thick walled. There is no significant surrounding inflammation. The appendix is not identified and reported surgically absent. Peritoneum: There is no intraperitoneal free air or abdominal ascites. There is a fat-containing umbilical hernia. Lymphadenopathy: None. Pelvic viscera: The bladder, prostate, and seminal vesicles are normal as imaged. Skeletal structures: No lytic or blastic lesions are seen. IMPRESSION: 1. The stomach is significantly distended and fluid-filled, as is the distal esophagus. The duodenum is normal in caliber as are the small bowel loops. Correlate clinically for evidence of gastric outlet obstruction. 2. The colon is relatively decompressed and appears circumferentially thick walled. Some this may be related to underdistention. Correlate clinically for evidence of a mild nonspecific colitis. 3. There is nonspecific perinephric stranding. Correlate with clinical findings and urinalysis. 4. Additional findings as above. ACT 112: Negative or not required by law. Electronically signed by: Aaron Gonzales M.D. 01/10/2024 11:56 AM KUB X-Ray 01/10/24 13:23 XR KUB/Abdomen 1 view CLINICAL HISTORY: NG placement TECHNIQUE: 1 view of the abdomen was obtained. Comparison: None available at the time of this dictation. FINDINGS: Enteric tube side-port is above the diaphragm. The osseous structures are grossly unremarkable. Small stool burden is seen. IMPRESSION: Enteric tube side-port is above the diaphragm. It can be advanced approximately 7 cm for improved positioning. ACT 112: Negative or not required by law. Electronically signed by: Rush Mccormick M.D. 01/10/2024 1:33 PM Chest X-Ray 01/10/24 17:43 PORTABLE SUPINE AP CHEST RADIOGRAPH CLINICAL HISTORY: s/p dialysis cath COMPARISON STUDY: Chest radiograph January 10, 2024 at 4:23 PM. FINDINGS: No pneumothorax is identified following placement of the left internal jugular venous dialysis catheter. Catheter tip projects over the distal left brachiocephalic vein/SVC. Right internal jugular central line and nasogastric tube remain in place. There is no consolidation or evidence for pulmonary edema. Cardiomediastinal silhouette is stable on this supine exam. Upper mediastinal widening is unchanged. IMPRESSION: 1. No pneumothorax following placement of a left internal jugular venous dialysis catheter. Catheter tip projects over the distal left brachiocephalic vein/SVC. 2. Otherwise, no change in appearance of the chest. Stable upper mediastinal widening, likely due to supine technique. ACT 112: Negative or not required by law. Electronically signed by: Josué Burnett M.D. 01/10/2024 6:35 PM PG Care Time/CCT Total # of Minutes Spent Total Time Spent with Patient: Total time spent is greater than 50% in coordination of care (as documented) at patient's floor/unit and/or counseling patient: Coding Level of Care Code 49510 SUB INP/OBS CARE 3/50MIN Diagnoses RODRIGO (acute kidney injury) N17.9 Diabetic nephropathy associated with type 2 diabetes mellitus E11.21 Diabetes mellitus type: type 2 DM2 (diabetes mellitus, type 2) E11.9 Weakness R53.1 (2) Diabetic nephropathy Diabetes mellitus type: type 2 Qualified Code(s): E11.21 - Type 2 diabetes mellitus with diabetic nephropathy
[2024-01-16] MEDS: ceFAZolin 2000MG 2,000 MG/15 ML SYR IV ONE (12:59)
--- NOTE | 2024-01-16 13:20 | Pre Anesthesia Assessment ---
Date of Service January 16, 2024 Pre Sedation Assessment Vital Signs Temp Pulse Pulse Pulse Resp BP Pulse Ox 01/16/24 12:43 36.7 C 70 20 164/99 H 97 01/16/24 11:30 36.5 C 68 18 185/91 H 99 01/16/24 08:25 01/16/24 08:00 69 01/16/24 07:47 36.4 C L 65 18 160/90 H 98 01/16/24 03:25 36.7 C 67 17 152/86 H 100 01/15/24 22:59 36.6 C 67 21 161/86 H 100 01/15/24 22:58 68 01/15/24 19:24 36.7 C 72 21 167/87 H 100 01/15/24 15:25 36.7 C 73 18 182/93 H 98 01/15/24 14:00 66 O2 Del Method 01/16/24 12:43 Room Air 01/16/24 11:30 Room Air 01/16/24 08:25 Room Air 01/16/24 08:00 01/16/24 07:47 Room Air 01/16/24 03:25 Room Air 01/15/24 22:59 Room Air 01/15/24 22:58 01/15/24 19:24 Room Air 01/15/24 15:25 Room Air 01/15/24 14:00 Cardiovascular RRR, no murmur, no edema Respiratory normal respiratory effort, lungs clear to auscultation Pre-Sedation Airway Assessment Smoking Status: Former smoker Short, Thick Neck: No Thyromental Distance: > or= 3.5 Finger Breadths Oral Cavity: + WNL Mallampati Class: II ASA: ASA3 NPO Status Date of Last Intake of Fluids: 01/16/24 Time of Last Intake of Fluids: 08:00 Date of Last Intake of Solid Food: 01/16/24 Time of Last Intake of Solid Foods: 16:30 Procedure Planning Contraindications for Sedation: none Current Medications Reviewed: Yes Notes The planned sedation has been discussed with the patient. Informed Consent was obtained. I have identified the patient, determined the appropriateness of sedation and have assessed the patient immediately prior to the procedure. All medicine(s) and interventions are by my order.
[2024-01-16] MEDS: MIDAZOLAM HCL 1 MG/ML 2ML VIAL ONE (13:30)
[2024-01-16] MEDS: LIDOCAINE 1% LOCAL 20 ML VIAL ONE (13:42)
--- NOTE | 2024-01-16 13:59 | Post Anesthesia Assessment ---
Date of Service January 16, 2024 Post Sedation Assessment Vital Signs Temp Pulse Pulse Pulse Resp BP Pulse Ox 01/16/24 13:55 71 16 168/100 H 100 01/16/24 13:50 69 16 167/97 H 100 01/16/24 13:45 73 16 176/102 H 100 01/16/24 13:40 70 18 169/94 H 99 01/16/24 13:35 71 16 171/98 H 99 01/16/24 13:30 74 17 174/106 H 99 01/16/24 12:43 36.7 C 70 20 164/99 H 97 01/16/24 11:30 36.5 C 68 18 185/91 H 99 01/16/24 08:25 01/16/24 08:00 69 01/16/24 07:47 36.4 C L 65 18 160/90 H 98 01/16/24 03:25 36.7 C 67 17 152/86 H 100 01/15/24 22:59 36.6 C 67 21 161/86 H 100 01/15/24 22:58 68 01/15/24 19:24 36.7 C 72 21 167/87 H 100 01/15/24 15:25 36.7 C 73 18 182/93 H 98 01/15/24 14:00 66 O2 Del Method O2 Flow Rate 01/16/24 13:55 Room Air 0 01/16/24 13:50 Oxymask 4 01/16/24 13:45 Oxymask 4 01/16/24 13:40 Oxymask 4 01/16/24 13:35 Oxymask 4 01/16/24 13:30 Oxymask 4 01/16/24 12:43 Room Air 01/16/24 11:30 Room Air 01/16/24 08:25 Room Air 01/16/24 08:00 01/16/24 07:47 Room Air 01/16/24 03:25 Room Air 01/15/24 22:59 Room Air 01/15/24 22:58 01/15/24 19:24 Room Air 01/15/24 15:25 Room Air 01/15/24 14:00 Recovery Score Activity: Moves 4 extremities Respiration: Deep Breath/Cough Circulation: +/-20% PreAnes Value Consciousness: Fully Awake Oxygen Saturation: > 92% On Room Air Post Anesthesia Score: 10 Discharge Sedation Level of Care: Fast Track Phase II Post Sedation Plan On clinical assessment, the patient appears to have tolerated the sedation without complications. Patient is recovering as anticipated. Patient will continue to be monitored by nursing and may be discharged when sedation discharge criteria are met per below protocol. Upon Completions of procedure up to 15 minutes continue every 5 minute vital signs and the P.A.R. score; then discharge to a Phase I or Fast Track to Phase II per the following guidelines: * Discharge Patient to appropriate Phase II area if PAR is 8 or greater or return to pre- procedure baseline. The post - procedure orders will be as directed. * If PAR score is less than 8 or not return to pre-procedure baseline then patient will follow Phase I monitoring till PAR is reached for Phase II. The Phase I may be done in procedure room or may call to secure a Phase I area. * If naloxone or flumazenil are used for reversal, hold in Phase I for continued monitoring from when last reversal dose was given for a minimum of 60 minutes or longer pending the nurse and/or physician discretion of patient condition before discharge to Phase II. Please call the Sedation Physician to re-evaluate and complete post-note for discharge to Phase II area. Do NOT discharge from procedure sedation or Phase 1 until post- sedation evaluation note is complete by procedure /sedation MD Sedation Discharge Instructions to be given to the patient at discharge to home.
--- NOTE | 2024-01-16 14:02 | Operative Report ---
Post Operative Report Pre & Post Diagnosis Operation Date: 01/16/24 13:00 Pre-Op Diagnosis: Acute Kidney Injury Post-Op Diagnosis: Acute Kidney Injury I identified the patient and participated in the time-out.: Yes Procedure Operation Date: 01/16/24 13:00 Actual Procedures p Insertion of Perm Cath, Right Internal Jugular Approach, Ultrasound Localization of Right Internal Jugular Vein, Fluoroscopy for Positioning, Moderate Sedation 13:30-13:57(Right) - Emilio Carmichael MD Surgeon Emilio Carmichael MD Painter And Decorator none Estimated Blood Loss 5 Findings Consistent with Post-Op Diagnosis Specimens none Anesthesia Type RN Sedation Complications none Disposition Accompanied Patient To Recovery: No Disposition: Recovery Room Indications This is a 48-year-old gentleman with acute kidney injury in need of dialysis. PermCath was recommended. Description of Procedure Patient was taken to the angio suite and placed in the supine position. The right side of the neck and chest wall were prepped and draped in a sterile manner. The patient was identified and a timeout performed. Local anesthesia was then administered to the appropriate areas of the neck and chest wall. Ultrasound was then used to locate the right internal jugular vein. The vein compressed easily, had no filing defects, and was patent. The vein was then punctured under direct ultrasound imaging. A guidewire was then passed centrally under fluoroscopic imaging. A stab wound was then made in the anterior chest wall and a 19 cm permcath was passed from the stab wound on the chest wall to the puncture site on the neck. The puncture site was then dilated till the 14Fr peel away sheath was inserted. The permcath was then inserted through the sheath to a central position in the distal superior vena cava. The peel away sheath was then removed. The catheter was then sutured in place using nylon sutures. The puncture was then closed using a 4-0 Vicryl subcuticular suture. Dermabond was used for a dressing on the puncture site. Both ports aspirated and flushed easily and were then packed with heparin. A sterile dressing was applied to the catheter. The patient left the operation room in satisfactory condition and tolerated the procedure well. All needle and sponge counts were correct at the end of the procedure. I attest to the content of the Intraoperative Record and any orders documented therein. Any exceptions are noted below.
[2024-01-16] MEDS: EPOETIN ALFA 10,000 UNITS/ML VIAL IV ONE (14:40)
--- NOTE | 2024-01-16 15:52 | Hospitalist Progress Note ---
Date of Service January 16, 2024 Assessment & Plan (1) Gastric outlet obstruction: Plan: Presented with history of nausea and vomiting x 5 days. On presentation, patient was found to have significant electrolyte abnormalities including hypokalemia, hypocalcemia, lactic acidosis, and acute renal injury. - Admitted to ICU given profound lactic acidosis, uremia, severe RODRIGO and severe electrolyte derangements > CT A/P on admission showed a significantly dilated stomach, normal small bowel, and collapsed colon. No obvious sign of ischemic bowel on CT - GI consulted and general surgery consulted > Suspect multifactorial related to diabetic gastroparesis, possible Ozempic- induced gastroenteritis, aggravated by electrolyte abnormalities / acute renal failure > NG tube placed 01/09 and removed 01/10 > tolerating diet without any difficulties. blood cultures remain negative (2) RODRIGO (acute kidney injury): Plan: Severe RODRIGO with dense ATN likely due to volume depletion. No urinary tract obstruction noted on imaging. Baseline creatinine ~1.1 required acute hemodialysis nonoliguric but Cr rising quickly after pausing HD temp HD line clotted 01/14 tunneled HD line placement by Dr. Carmichael 01/15 today per nephrology recs will have HD tonight and tomorrow then discharge has MWF outpatient dialysis appointment. Follow up with [employer]. hypokalemia improved, K 3.6 Na bicarb po started by [employer] for metabolic acidosis - stable Cr up to 11.7 today but volume status and electrolytes acceptable (3) DM2 (diabetes mellitus, type 2): Plan: Evidence of mild DKA on admission continue Premeal short acting insulin - Correction Factor: 50 mg/dL/unit - added carbohydrate ratio - BG improved today mostly at goal last 24h - BSGs ACHS if eating, q6h if npo (4) Elevated troponin: Plan: Elevated troponin and somewhat abnormal EKG on admission - Troponin peaked at 126.6 - Elevated troponin is likely due to demand ischemia in setting of acute renal failure and severe volume depletion - EKG showed increased QTc compared to prior - Obtain EKG with any occurrence of chest pain - Overnight 01/11, patient had 12 beat runs of NSVT. potassium was 3.2 at that time - Echo revealed EF 50-55%, right ventricular systolic pressure elevated at 30-40 mmHg, normal diastolic function, no significant valvular heart disease - Started/continue metoprolol 12.5 mg BID - no further episodes, ok to transfer off tele after HD today Plan Chronic Issues: - Hyperlipidemia - continue rosuvastatin 40 mg - History of opioid use/abuse - resumed suboxone DVT prophylaxis -- SCDs, heparin twice daily Admission and Anticipated Discharge Date Admission Date: January 10, 2024 Subjective more leg edema no chest pain or dyspnea having bilateral lower back pain at night interferes with sleeping, nonradiating Physical Exam 2 Physical Exam: PHYSICAL EXAMINATION Last 24h vital signs reviewed, see documentation in flowsheet General: comfortable appearing, no distress HEENT: Normocephalic, atraumatic, pupils round and equal, sclerae anicteric, no conjunctival injection, moist mucus membranes Lungs: Normal respiratory effort. Clear to auscultation bilaterally. No RRW Heart: Regular rate and rhythm, no murmurs. No JVD left IJ temporary hemodialysis catheter Abdomen: Soft, nontender, nondistended. Bowel sounds present. Lspine nontender. some bilateral paraspinous muscle spasm Extremities: Warm, dry, well-perfused. 1+ lower extremity edema has mildly increased. Neuro: Alert and oriented x 4, face symmetric, moves 4 extremities well Psych: Normal affect and behavior Results & Data Results & Data Vital Signs (Past 12 Hours) Vital Signs Temp Pulse Pulse Pulse Resp BP BP 01/16/24 15:30 67 180/105 H 01/16/24 15:00 67 187/105 H 01/16/24 14:45 69 161/106 H 01/16/24 14:30 70 166/99 H 01/16/24 14:15 70 161/103 H 01/16/24 14:11 73 161/102 H 01/16/24 14:05 36.6 C 73 01/16/24 13:55 71 16 168/100 H 01/16/24 13:50 69 16 167/97 H 01/16/24 13:45 73 16 176/102 H 01/16/24 13:40 70 18 169/94 H 01/16/24 13:35 71 16 171/98 H 01/16/24 13:30 74 17 174/106 H 01/16/24 12:43 36.7 C 70 20 164/99 H 01/16/24 11:30 36.5 C 68 18 185/91 H 01/16/24 08:25 01/16/24 08:00 69 01/16/24 07:47 36.4 C L 65 18 160/90 H Pulse Ox O2 Del Method O2 Flow Rate 01/16/24 15:30 01/16/24 15:00 01/16/24 14:45 01/16/24 14:30 01/16/24 14:15 01/16/24 14:11 01/16/24 14:05 01/16/24 13:55 100 Room Air 0 01/16/24 13:50 100 Oxymask 4 01/16/24 13:45 100 Oxymask 4 01/16/24 13:40 99 Oxymask 4 01/16/24 13:35 99 Oxymask 4 01/16/24 13:30 99 Oxymask 4 01/16/24 12:43 97 Room Air 01/16/24 11:30 99 Room Air 01/16/24 08:25 Room Air 01/16/24 08:00 01/16/24 07:47 98 Room Air Laboratory Results 01/16/24 07:09 01/16/24 07:09 PG Care Time/CCT Total # of Minutes Spent Total Time Spent with Patient: Total time spent is greater than 50% in coordination of care (as documented) at patient's floor/unit and/or counseling patient: Coding Level of Care Code 14985 SUB INP/OBS CARE 2/35MIN Diagnoses Gastric outlet obstruction K31.1 RODRIGO (acute kidney injury) N17.9 DM2 (diabetes mellitus, type 2) E11.9 Elevated troponin R79.89
[2024-01-16] MEDS: HEPARIN SOD (PORCINE) 5,000 UNITS/ML VIAL ONE (16:56)
[2024-01-16] MEDS: HYDROmorphone INJ 0.5 MG/0.5 ML SYR IV STA (17:34)
[2024-01-16] MEDS: oxyCODONE HCL IR 5 MG TAB (IMMEDIATE RELEASE) PO PRN (21:08)
[2024-01-17] MEDS: oxyCODONE HCL IR 5 MG TAB (IMMEDIATE RELEASE) PO PRN (01:47)
[2024-01-17 06:16] LABS: Hematocrit (blood only) 22.7 % (42.0-52.0); Hemoglobin 7.7 g/dl (14.0-18.0); Mean Corpuscular Hemoglobin 26.1 pg (25.0-34.0); Mean Corpuscular Hgb Conc 33.9 g/dL (32.0-36.0); Mean Corpuscular Volume 76.9 fL (80.0-100.0); Mean Platelet Volume 9.4 fL (9.4-12.4); Nucleated RBC # (auto) 0.02 K/uL (0.00-0.12); Nucleated RBC % (auto) 0.3 %; Platelet Count 231 K/uL (130-400); RDW Coefficient of Variation 14.6 % (11.5-14.5); RDW Standard Deviation 40.6 fL (36.4-46.3); Red Blood Count 2.95 M/uL (4.70-6.10); White Blood Count 6.54 K/ul (4.8-10.8)
[2024-01-17 06:40] LABS: Calcium 7.6 mg/dl (8.6-10.3); Creatinine Clr Calc Pharmacy 11.8 ml/min; Potassium 3.5 mmol/L (3.5-5.1)
--- NOTE | 2024-01-17 08:54 | Nephrology Progress Note ---
Date of Service January 17, 2024 Assessment & Plan (1) RODRIGO (acute kidney injury): Plan: * Oliguric RODRIGO due to dehydration. 01/[address] negative for hydronephrosis. Patient has ATN. * Vascular surgery placed IJ TCC 01/16/24. 1st HD provided 01/16/24. * 2nd HD today to establish MWF schedule. No heparin due to anemia, no UF ordered due to RODRIGO * Case management has set up outpatient HD at [facility] MWF at 12 noon. 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 Baseline creatinine 1.1 mg/dL in July 2023. MACR ~300 mcg/mg. (3) DM2 (diabetes mellitus, type 2): Plan: * Metformin and semaglutide held. (4) Weakness: Plan: * Encourage ambulation in hallway w/ assistance Admission and Anticipated Discharge Date Admission Date: January 10, 2024 Subjective Mr. Valadez was evaluated while on HD this morning. He c/o soreness from R IJ TCC but denied dyspnea, angina. His primary concern today is that his family will be away this weekend and he does not want to return home without family/medical support Review of Systems Constitutional: no fever Eyes: no problem reported Ear, Nose, Mouth, Throat: no problem reported Respiratory: no cough and no dyspnea Cardiovascular: no chest pain Gastrointestinal: no abdominal pain Physical Exam Constitutional: not in distress Eyes: PERRL, conjunctivae normal, anicteric sclerae Neck: trachea midline, no thyromegaly Respiratory: normal respiratory effort, lungs clear to auscultation Cardiovascular: RRR, no murmur, no edema Gastrointestinal (Abdomen): Inspection/Auscultation: abdomen normal to inspection, + abdomen distended, normal bowel sounds and + hypoactive bowel sounds Percussion/Palpation: abdomen nontender and no guarding Musculoskeletal: Extremities: no cyanosis and no clubbing Skin: no rashes, warm and dry Neurologic: Speech / Cognition: normal speech and normal cognition Results & Data Vital Signs (Past 12 Hours) Vital Signs Temp Pulse Pulse Resp BP Pulse Ox O2 Del Method 01/17/24 07:57 36.7 C 73 18 167/90 H 96 Room Air 01/17/24 07:42 67 01/17/24 03:01 36.9 C 71 17 158/90 H 97 Room Air 01/16/24 23:05 80 01/16/24 22:10 36.8 C 83 19 142/82 H 97 Room Air Laboratory Results Laboratory Results - last 24 hr 01/16/24 01/16/24 01/16/24 11:25 17:29 20:24 WBC RBC Hgb Hct MCV MCH MCHC RDW Std Deviation RDW Coeff of Parveen Plt Count MPV Absolute Nucleated RBC Nucleated RBC % (auto) Sodium Potassium Chloride Carbon Dioxide Anion Gap BUN Creatinine Est Cr Clr Drug Dosing eGFR BUN/Creatinine Ratio Glucose POC Glucose 129 H 109 H 262 H Calcium 01/17/24 01/17/24 05:48 07:33 WBC 6.54 RBC 2.95 L Hgb 7.7 L Hct 22.7 L MCV 76.9 L MCH 26.1 MCHC 33.9 RDW Std Deviation 40.6 RDW Coeff of Parveen 14.6 H Plt Count 231 MPV 9.4 Absolute Nucleated RBC 0.02 Nucleated RBC % (auto) 0.3 Sodium 138 Potassium 3.5 Chloride 106 Carbon Dioxide 23 Anion Gap 9 BUN 48 H D Creatinine 8.00 H* D Est Cr Clr Drug Dosing 11.8 eGFR 7.75 BUN/Creatinine Ratio 6.0 L Glucose 211 H POC Glucose 178 H Calcium 7.6 L PG Care Time/CCT Total # of Minutes Spent Total Time Spent with Patient: Total time spent is greater than 50% in coordination of care (as documented) at patient's floor/unit and/or counseling patient: Coding Level of Care Code 69937 SUB INP/OBS CARE 3/50MIN Diagnoses RODRIGO (acute kidney injury) N17.9 Diabetic nephropathy associated with type 2 diabetes mellitus E11.21 Diabetes mellitus type: type 2 DM2 (diabetes mellitus, type 2) E11.9 Weakness R53.1 (2) Diabetic nephropathy Diabetes mellitus type: type 2 Qualified Code(s): E11.21 - Type 2 diabetes mellitus with diabetic nephropathy
[2024-01-17] MEDS: EPOETIN ALFA 10,000 UNITS/ML VIAL IV ONE (10:54)
--- NOTE | 2024-01-17 16:03 | Hospitalist Progress Note ---
Date of Service January 17, 2024 Assessment & Plan (1) Gastric outlet obstruction: Plan: Presented with history of nausea and vomiting x 5 days. On presentation, patient was found to have significant electrolyte abnormalities including hypokalemia, hypocalcemia, lactic acidosis, and acute renal injury. - Admitted to ICU given profound lactic acidosis, uremia, severe RODRIGO and severe electrolyte derangements > CT A/P on admission showed a significantly dilated stomach, normal small bowel, and collapsed colon. No obvious sign of ischemic bowel on CT - GI consulted and general surgery consulted > Suspect multifactorial related to diabetic gastroparesis, possible Ozempic- induced gastroenteritis, aggravated by electrolyte abnormalities / acute renal failure > NG tube placed 01/09 and removed 01/10 > tolerating diet without any difficulties. blood cultures finalized negative (2) RODRIGO (acute kidney injury): Plan: Severe RODRIGO with dense ATN likely due to volume depletion. No urinary tract obstruction noted on imaging. Baseline creatinine ~1.1 required acute hemodialysis nonoliguric but Cr rising quickly after pausing HD temp HD line clotted 01/14 tunneled HD line placement by Dr. Carmichael 01/15 had dialysis 01/15 and 01/16 next dialysis as outpatient Saturday continue outpatient dialysis Sat schedule discussed with Dr. Dominguez (3) DM2 (diabetes mellitus, type 2): Plan: Evidence of mild DKA on admission, resolved Stop ozempic and metformin because of renal failure Safest to use insulin in short term. He has used insulin in the past -added glargine 5u HS -continue aspart with CF, but stop CR so that we can assess response to glargine without it. hopefully can be on only glargine at home (4) Elevated troponin: Plan: Elevated troponin and somewhat abnormal EKG on admission - Troponin peaked at 126.6 - Elevated troponin is likely due to demand ischemia in setting of acute renal failure and severe volume depletion - EKG showed increased QTc compared to prior - Overnight 01/11, patient had 12 beat runs of NSVT. potassium was 3.2 at that time - Echo revealed EF 50-55%, right ventricular systolic pressure elevated at 30-40 mmHg, normal diastolic function, no significant valvular heart disease - Started/continue metoprolol 12.5 mg BID --> metoprolol succinate 25 mg daily for discharge - no further episodes Plan Anemia - Hg down to 7.7. Renal failure and phlebotomy playing a role -epo given by section weaver -AM CBC and iron studies Chronic Issues: - Hyperlipidemia - continue rosuvastatin 40 mg - History of opioid use/abuse - resumed suboxone DVT prophylaxis -- SCDs, heparin twice daily Planning for discharge Saturday AM when his family is in town and available to help him Admission and Anticipated Discharge Date Admission Date: January 10, 2024 Subjective doing well. on HD currently soreness at R tunneled catheter site controlled with po pain medication no dyspnea and leg edema improved Physical Exam 2 Physical Exam: PHYSICAL EXAMINATION Last 24h vital signs reviewed, see documentation in flowsheet General: comfortable appearing, no distress, on HD currently HEENT: Normocephalic, atraumatic, pupils round and equal, sclerae anicteric, no conjunctival injection, moist mucus membranes Lungs: Normal respiratory effort. Clear to auscultation bilaterally. No RRW Heart: Regular rate and rhythm, no murmurs. No JVD left IJ temporary hemodialysis catheter was removed, dressed R IJ tunneled HD catheter in use. no swelling or drainage Abdomen: Soft, nontender, nondistended. Bowel sounds present. Extremities: Warm, dry, well-perfused. 1+ lower extremity edema has decreased Neuro: Alert and oriented x 4, face symmetric, moves 4 extremities well Psych: Normal affect and behavior Results & Data Results & Data Vital Signs (Past 12 Hours) Vital Signs Temp Pulse Pulse Pulse Pulse Resp BP 01/17/24 15:26 36.8 C 68 18 01/17/24 15:19 71 01/17/24 12:25 36.8 C 76 18 01/17/24 12:10 36.8 C 67 01/17/24 12:00 65 168/103 H 01/17/24 11:41 36.8 C 83 73 71 18 01/17/24 11:30 66 177/105 H 01/17/24 11:00 65 174/103 H 01/17/24 10:30 74 190/109 H 01/17/24 10:00 67 159/101 H 01/17/24 09:30 74 179/112 H 01/17/24 08:57 36.8 C 71 01/17/24 07:57 36.7 C 73 18 01/17/24 07:42 67 BP Pulse Ox O2 Del Method 01/17/24 15:26 164/94 H 97 Room Air 11/01/24 15:19 01/17/24 12:25 174/97 H 97 Room Air 01/17/24 12:10 186/109 H 01/17/24 12:00 01/17/24 11:41 167/90 H 96 01/17/24 11:30 01/17/24 11:00 01/17/24 10:30 01/17/24 10:00 01/17/24 09:30 01/17/24 08:57 01/17/24 07:57 167/90 H 96 Room Air 01/17/24 07:42 Laboratory Results 01/17/24 05:48 01/17/24 05:48 PG Care Time/CCT Total # of Minutes Spent Total Time Spent with Patient: Total time spent is greater than 50% in coordination of care (as documented) at patient's floor/unit and/or counseling patient: Coding Level of Care Code 47137 SUB INP/OBS CARE 2/35MIN Diagnoses Gastric outlet obstruction K31.1 RODRIGO (acute kidney injury) N17.9 DM2 (diabetes mellitus, type 2) E11.9 Elevated troponin R79.89
[2024-01-17] MEDS: LANTUS PER UNIT CHARGE SQ SCH (20:31)
[2024-01-18 06:06] LABS: Hematocrit (blood only) 22.3 % (42.0-52.0); Hemoglobin 7.5 g/dl (14.0-18.0); Mean Corpuscular Hgb Conc 33.6 g/dL (32.0-36.0); Mean Corpuscular Volume 77.2 fL (80.0-100.0); Mean Platelet Volume 9.2 fL (9.4-12.4); Nucleated RBC # (auto) 0.02 K/uL (0.00-0.12); Nucleated RBC % (auto) 0.3 %; Platelet Count 233 K/uL (130-400); RDW Coefficient of Variation 14.8 % (11.5-14.5); RDW Standard Deviation 41.2 fL (36.4-46.3); Red Blood Count 2.89 M/uL (4.70-6.10); White Blood Count 6.73 K/ul (4.8-10.8)
[2024-01-18 06:52] LABS: BUN Creatinine Ratio 4.7 (10-20); Calcium 7.8 mg/dl (8.6-10.3); Creatinine Clr Calc Pharmacy 14.9 ml/min; Potassium 3.3 mmol/L (3.5-5.1)
[2024-01-18 07:11] LABS: Ferritin 134.6 ng/ml (8-388)
[2024-01-18] MEDS: POTASSIUM CHLORIDE 10 MEQ TABCR PO STA (11:52)
[2024-01-18 15:25] VITALS: RESP 18
--- NOTE | 2024-01-18 17:25 | Hospitalist Progress Note ---
Date of Service January 18, 2024 Assessment & Plan (1) Gastric outlet obstruction: Plan: Presented with history of nausea and vomiting x 5 days. On presentation, patient was found to have significant electrolyte abnormalities including hypokalemia, hypocalcemia, lactic acidosis, and acute renal injury. - Admitted to ICU given profound lactic acidosis, uremia, severe RODRIGO and severe electrolyte derangements > CT A/P on admission showed a significantly dilated stomach, normal small bowel, and collapsed colon. No obvious sign of ischemic bowel on CT - GI consulted and general surgery consulted > Suspect multifactorial related to diabetic gastroparesis, possible Ozempic- induced gastroenteritis, aggravated by electrolyte abnormalities / acute renal failure > NG tube placed 01/09 and removed 01/10 > tolerating diet without any difficulties. blood cultures finalized negative (2) RODRIGO (acute kidney injury): Plan: Severe RODRIGO with dense ATN likely due to volume depletion. No urinary tract obstruction noted on imaging. Baseline creatinine ~1.1 required acute hemodialysis nonoliguric but Cr rising quickly after pausing HD temp HD line clotted 01/14 tunneled HD line placement by Dr. Carmichael 01/15 had dialysis 01/15 and 01/16 next dialysis as outpatient Saturday continue outpatient dialysis Sat schedule discussed with Dr. Dominguez (3) DM2 (diabetes mellitus, type 2): Plan: Evidence of mild DKA on admission, resolved Stop ozempic and metformin because of renal failure Safest to use insulin in short term. He has used insulin in the past -continue aspart with CF, but stop CR so that we can assess response to glargine without it. hopefully can be on only glargine at home -BG close to goal today, increase glargine to 7u HS (4) Elevated troponin: Plan: Elevated troponin and somewhat abnormal EKG on admission - Troponin peaked at 126.6 - Elevated troponin is likely due to demand ischemia in setting of acute renal failure and severe volume depletion - EKG showed increased QTc compared to prior - Overnight 01/11, patient had 12 beat runs of NSVT. potassium was 3.2 at that time - Echo revealed EF 50-55%, right ventricular systolic pressure elevated at 30-40 mmHg, normal diastolic function, no significant valvular heart disease - Started/continue metoprolol 12.5 mg BID --> metoprolol succinate 25 mg daily for discharge - no further episodes Plan Hypertension improved after resuming dialysis Hypokalemia - has been mild recurrent issue. Oral K supplement today for K 3.3 Anemia - Hg down to 7.7. Renal failure and phlebotomy playing a role -epo given by business office assistant -Hg stable at 7.5 and iron studies normal Chronic Issues: - Hyperlipidemia - continue rosuvastatin 40 mg - History of opioid use/abuse - resumed suboxone DVT prophylaxis -- SCDs, heparin twice daily Planning for discharge Saturday AM when his family is in town and available to help him Admission and Anticipated Discharge Date Admission Date: January 10, 2024 Subjective feeling pretty good, R cath site soreness improved leg edema persists Physical Exam 2 Physical Exam: PHYSICAL EXAMINATION Last 24h vital signs reviewed, see documentation in flowsheet General: sitting watching football HEENT: Normocephalic, atraumatic, pupils round and equal, sclerae anicteric, no conjunctival injection, moist mucus membranes Lungs: Normal respiratory effort. Clear to auscultation bilaterally. No RRW Heart: Regular rate and rhythm, no murmurs. No JVD R IJ tunneled HD catheter dressed cdi Abdomen: Soft, nontender, nondistended. Bowel sounds present. Extremities: Warm, dry, well-perfused. 1+ lower extremity edema Neuro: Alert and oriented x 4, face symmetric, moves 4 extremities well Psych: Normal affect and behavior Results & Data Results & Data Vital Signs (Past 12 Hours) Vital Signs Temp Pulse Resp BP Pulse Ox O2 Del Method 01/18/24 15:23 36.5 C 101 H 18 109/73 96 Room Air 01/18/24 11:05 36.8 C 67 19 149/83 H 97 Room Air 01/18/24 07:57 36.7 C 74 20 172/89 H 97 Room Air Laboratory Results 01/18/24 05:41 01/18/24 05:41 PG Care Time/CCT Total # of Minutes Spent Total Time Spent with Patient: Total time spent is greater than 50% in coordination of care (as documented) at patient's floor/unit and/or counseling patient: Coding Level of Care Code 14079 SUB INP/OBS CARE 2/35MIN Diagnoses Gastric outlet obstruction K31.1 RODRIGO (acute kidney injury) N17.9 DM2 (diabetes mellitus, type 2) E11.9 Elevated troponin R79.89
[2024-01-18 19:48] VITALS: PULSE 69
[2024-01-18] MEDS: LANTUS PER UNIT CHARGE SQ SCH (20:41)
[2024-01-19 07:43] VITALS: BP 169/91; TEMP 98.1; O2SAT 97
--- NOTE | 2024-01-19 09:40 | Discharge Summary ---
Discharge Summary Date of Service January 19, 2024 Principal Dx & Hospital Course #1 = Principal Diagnosis (1) Gastric outlet obstruction: Presented with history of nausea and vomiting x 5 days. On presentation, patient was found to have significant electrolyte abnormalities including hypokalemia, hypocalcemia, lactic acidosis, and acute renal injury. - Admitted to ICU given profound lactic acidosis, uremia, severe RODRIGO and severe electrolyte derangements > CT A/P on admission showed a significantly dilated stomach, normal small bowel, and collapsed colon. No obvious sign of ischemic bowel on CT - GI consulted and general surgery consulted > Suspect multifactorial related to diabetic gastroparesis, possible Ozempic- induced gastroenteritis, aggravated by electrolyte abnormalities / acute renal failure > NG tube placed 01/09 and removed 01/10 > symptoms resolved with conservative treatment > tolerating diet without any difficulties. blood cultures finalized negative (2) RODRIGO (acute kidney injury): Severe RODRIGO with dense ATN likely due to volume depletion. No urinary tract obstruction noted on imaging. Baseline creatinine ~1.1 required acute hemodialysis nonoliguric but Cr rising quickly after pausing HD temp HD line clotted 01/14 tunneled HD line placement by Dr. Carmichael 01/15 had dialysis 01/15 and 01/16 next dialysis as outpatient Saturday continue outpatient dialysis Sat schedule discussed with Dr. Raman (3) DM2 (diabetes mellitus, type 2): Evidence of mild DKA on admission, resolved Stop ozempic and metformin because of renal failure Safest to use insulin in short term. He has used insulin in the past -BG at goal on glargine 7 units at bedtime, not requiring Premeal insulin at this time - follow-up with Dr. Vallecillo (4) Elevated troponin: Elevated troponin and somewhat abnormal EKG on admission - Troponin peaked at 126.6 - Elevated troponin is likely due to demand ischemia in setting of acute renal failure and severe volume depletion - EKG showed increased QTc compared to prior - Overnight 01/11, patient had 12 beat runs of NSVT. potassium was 3.2 at that time - Echo revealed EF 50-55%, right ventricular systolic pressure elevated at 30-40 mmHg, normal diastolic function, no significant valvular heart disease - metoprolol succinate 25 mg daily - no further episodes Plan Hypertension improved after resuming dialysis. may require increase in metoprolol or another agent, follow-up as outpatient Hypokalemia - has been mild recurrent issue. nonoliguric. Discharged with potassium 20 mEq daily. Will have labs with next dialysis Anemia - Hg down to 7.7. Renal failure and phlebotomy playing a role -epo given by web development director -Hg stable and iron studies normal Chronic Issues: - Hyperlipidemia - continue rosuvastatin 40 mg - History of opioid use/abuse - resumed suboxone Notes For Next Care Provider adjust insulin as indicated might need increase in metoprolol or second agent for hypertension, assess response to serial dialysis currently volume overloaded Medication Changes From Visit Ozempic and metformin stopped because of renal failure metoprolol succinate started for hypertension and because of episode of NSVT in hospital ( associated with hypokalemia) potassium supplement 20 mEq daily counseled to avoid NSAIDs Admission HPI Per Admitting Provider This is a 48-year-old male with medical history significant for diabetes type 2 (on Ozempic 0.5 mg weekly, and metformin), hyperlipidemia, GERD, and opioid dependence (on buprenorphine) who comes in with several days of nausea and vomiting. Patient states that he was in his usual state of health until about 4-5 days ago when he started developing the nausea and vomiting. He has not been able to keep much food or fluid down. He has been having some ice chips and sips of water at home for the last several days and that is about it. Denies any diarrhea. states urine output has decreased, but he that he is still producing urine. Denies any severe abdominal pain. Denies any dysuria as far as he can tell. Denies any fevers, chills. Denies any chest pain, shortness of breath. Patient states that he has been on Ozempic on and off for 4 to 5 years. In the past he has had occasional episodes of nausea and vomiting with it, but it has not been this severe. He resumed Ozempic 6 months ago at a dose of 0.5 mg q. weekly, and thus far until this week has not had any issues with it. Denies any other changes in medications. Discharge Exam PHYSICAL EXAMINATION Last 24h vital signs reviewed, see documentation in flowsheet General: awake alert sitting up in bed HEENT: Normocephalic, atraumatic, pupils round and equal, sclerae anicteric, no conjunctival injection, moist mucus membranes Lungs: Normal respiratory effort. Heart: R IJ tunneled HD catheter dressed cdi Abdomen: Soft, nondistended. Extremities: Warm, dry, well-perfused. 1+ lower extremity edema Neuro: Alert and oriented x 4, face symmetric, moves 4 extremities well Psych: Normal affect and behavior Discharge Plan Discharge Items Patient Disposition: Home - Self-Care Reason For Visit: RODRIGO Discharge Diagnosis: Acute kidney injury with ATN Activity: Resume your previous activity Non-emergency contact: Primary Care Provider and [employer] Call non-emergency contact if: you have any medication questions, your symptoms worsen and you have a fever Follow-up/Referrals: Terell Dominguez MD [Physician] - Shavonne Vallecillo DO [Primary Care Provider] - 01/23/24 9:20 am (Hospital follow up scheduled January 22 at 9:[address] Vallecillo) Diet: Carb Consistent or DM2 Addtl Attending Provider Instructions: Continue outpatient dialysis as scheduled Follow up with web development director We started metoprolol to help control your blood pressure and prevent heart arrhythmia Potassium supplement daily, they will follow your lab tests at dialysis Its safest to use insulin for diabetes for the time being, follow up with Dr. Vallecillo. This will require some dose adjustment since home diet is different from hospital diet Call Dr. Vallecillo if you are having blood sugars that are too high (>300) or hypoglycemia You might need to add premeal insulin, however, you've been fine on glargine alone last few days You can take acetaminophen for pain as directed Avoid NSAID medications (ibuprofen/motrin/advil, naproxen/aleve) because they can injure your kidneys It was a pleasure taking care of you in the hospital, Leah Valladares MD Pending Studies at Discharge: No Stand-Alone Forms: My [facility] Social IQ (Social Influence Quotient), Pain - Opioid Pain Management, Smoking Cessation Medications and DC Order Prescriptions: New metoprolol succinate [Toprol XL] 25 mg tablet extended release 24 hr 25 mg PO DAILY Qty: 30 0RF acetaminophen 325 mg Tablet 650 mg PO Q4H PRNQty: 0 0RF oxycodone 5 mg Tablet 5 mg PO Q4H PRN (Reason: pain) Qty: 10 0RF insulin glargine [Lantus Solostar U-100 Insulin] 100 unit/mL (3 mL) insulin pen 5 unit subcut PM Qty: 3 0RF (DME) pen needle, diabetic [Ultra-Thin II Ins Pen [place]] 29 gauge x 1/2" needle See Rx Instructions .Route Qty: 100 0RF Rx Instructions: As directed Renal Caps 1 mg capsule 1 cap PO DAILY Qty: 30 0RF potassium chloride 20 mEq tablet,ER particles/crystals 20 meq PO DAILY Qty: 30 0RF Continued (DME) OneTouch Ultra Blue Test Strip Strip See Rx Instructions .ROUTE .MEDSUPPLY Qty: 100 5RF Rx Instructions: TEST TWICE DAILY; DX CODE- E11.65 (DME) blood-glucose meter [OneTouch Ultra2 Meter] [facility] [place] Rx Instructions .ROUTE .MEDSUPPLY Qty: 1 0RF Rx Instructions: TEST TWICE DAILY; DX CODE- E11.65 pantoprazole 40 mg tablet,delayed release (DR/EC) 40 mg PO QAM Qty: 90 1RF rosuvastatin 40 mg tablet 40 mg PO QAM Qty: 90 1RF buprenorphine HCl 8 mg tablet, sublingual 8 mg sublingual UD Rx Instructions: per pt he doesnt take the medication. Fill history shows 12/30 1 tab sublingual bid for 14 day supply Discontinued metformin 500 mg tablet extended release 24 hr 1,000 mg PO BID Qty: 360 1RF Rx Instructions: Regular ER, not OSM or MOD Ozempic 0.25 mg or 0.5 mg (2 mg/3 mL) pen injector 0.5 mg subcut .weekly Qty: 3 1RF Discharge Orders: Discharge Order (Routine); Ordered 01/19/24 Ordered By: Leah Ovalle/Other Patient Handouts: Home Hemodialysis (HHD), Managing Type 2 Diabetes Admission Data Admit Date/Time: 01/10/24 15:17 Attending Provider: Leah Valladares Admit Provider: Elissa Harris Primary Care Provider: Shavonne Vallecillo Other Providers: Elissa Harris; Jay Mistry; Carmen Hogan; Lasha Elizondo; Tyesha Palacios; Jeanine Florence; Violet Weeks; Yuni Gambino; Whitney Sherwood; Julio Sams; Chrissy Quinn; Melo Otoole; Dale Morley; Alexandria Copeland; Cecy Hernadez; Penny Slade; Pilar Lowery; Carlos Alonzo; Albert Melendez; Moon Augustine; Néstor Peter Jr; Hernandez Gotti; Pete Perez; Garth Retana; Alan Westfall; Sera Beltran; Yoan Dexter I; Lianet Brian; Kirk Garza; Shola Hill; Emilio Carmichael Other Interventions: Discharge Summary Assessment (RN) Last Done: 01/17/24 11:41 Hospital Stay Data Consultations 01/10/24 11:33 ED Decision to Admit Stat 01/10/24 12:27 Consult General Surgery Routine 01/10/24 13:41 Consult Gastroenterology Routine 01/10/24 16:08 Consult Helicopter Crew Chief Routine Consult Nephrology Routine 01/14/24 08:53 Consult Vascular Surgery Routine Procedures Performed Operation Date: 01/16/24 13:00 Actual Procedures p Insertion of Perm Cath, Right Internal Jugular Approach, Ultrasound Localization of Right Internal Jugular Vein, Fluoroscopy for Positioning, Moderate Sedation 13:30-13:57(Right) - Emilio Carmichael MD Diagnostic Imagining Performed 01/10/24 11:17 CT Abdomen and Pelvis [CT abd pelvis wo con] Stat 01/10/24 16:00 US point of care ultrasound Urgent 01/16/24 07:29 EV cvc insrt tunnel wo prt/embedded software development engineer Routine US EV guide vascular access Routine Pending Results Patient Have Any Pending Studies at Discharge: No Discharge Instructions Given to Patient (Per Discharging Provider) Continue outpatient dialysis as scheduled Follow up with web development director We started metoprolol to help control your blood pressure and prevent heart arrhythmia Potassium supplement daily, they will follow your lab tests at dialysis Its safest to use insulin for diabetes for the time being, follow up with Dr. Vallecillo. This will require some dose adjustment since home diet is different from hospital diet Call Dr. Vallecillo if you are having blood sugars that are too high (>300) or hypoglycemia You might need to add premeal insulin, however, you've been fine on glargine alone last few days You can take acetaminophen for pain as directed Avoid NSAID medications (ibuprofen/motrin/advil, naproxen/aleve) because they can injure your kidneys It was a pleasure taking care of you in the hospital, Leah Valladares MD Total Time Total Time Spent Total Time Spent (In Minutes): less than 30 minutes Coding Level of Care Code 45482 IN/OBS DISCH 30 MIN/LESS Diagnoses Gastric outlet obstruction K31.1 RODRIGO (acute kidney injury) N17.9 DM2 (diabetes mellitus, type 2) E11.9 Elevated troponin R79.89
--- NOTE | 2024-01-21 10:59 | Coding Query ---
CODING QUERY To promote full compliance with coding requirements relating to patient care, provider participation is requested in all cases of rodent exterminator uncertainty. Please assist us with the question(s) below: Coding Question(s): Demand Ischemia is mentioned in several PN's, starting with 01/11 then drops off. Is this a current dx or was it ruled out? Physician's Response(s): ( ) Current Dx ( ) R/O POA: ( ) yes ( ) no Thank you Ana Jacinto Principal Diagnosis: "that condition established after study, to be chiefly responsible for occasioning the admission of the patient to the hospital for care." Co-Existing Principal Diagnosis: "when two or more diagnoses equally meet the criteria for principal diagnosis as determined by the circumstances of admission, diagnostic work up, and/or therapy provided, and the Alphabetic Index, Tabular List, or another coding guideline does not provide sequencing direction, any one of the diagnoses may be sequenced first." "When the physician has documented what appears to be a current diagnosis in the body of the record, but has not included the diagnosis in the final diagnostic statement, the physician should be asked whether the diagnosis should be added." (Source Coding Clinic 2 QTR90. p3-4) LANIE
== END 2024-01-19 12:36 | disposition home or self-care (01) | DRG 380 ==
LOC: ED 10:04 → 1E 15:17 → SUATTDRO 15:17 → 1E 16:17 → 2S 01-11 18:50